=== PATIENT | female | born 1935 | race Caucasian/White ===

== ENCOUNTER 2017-04-23 16:12 | Outpatient (CLI) | payer MEDICARE ==
[2017-04-23 17:38] LABS: BASOPHILS % (AUTO) 0.7 %; EOSINOPHILS # (AUTO) 0.1 10^3/uL (0.0-0.7); EOSINOPHILS % (AUTO) 1.9 %; LYMPHOCYTES # (AUTO) 1.5 10^3/uL (1.5-3.5); LYMPHOCYTES % (AUTO) 24.6 %; MEAN CORPUSCULAR HEMOGLOBIN 29.7 pg (27.0-31.0); MEAN CORPUSCULAR HGB CONC 34.1 g/dL (32.0-36.0); MEAN CORPUSCULAR VOLUME 87.1 fL (81.0-99.0); MEAN PLATELET VOLUME 8.8 fL (7.9-10.8); MONOCYTES # (AUTO) 0.3 10^3/uL (0.0-1.0); MONOCYTES % (AUTO) 5.6 %; NEUTROPHILS % (AUTO) 67.2 %; NUCLEATED RED BLOOD CELLS AUTO 0.1 /100WBC; RED CELL DISTRIBUTION WIDTH 14.3 % (12.0-15.0)
[2017-04-23 18:08] LABS: HEMOGLOBIN A1C 1.72 g/dL
[2017-04-23 18:24] LABS: ALBUMIN/GLOBULIN RATIO 1.3 (1.0-2.2); BILIRUBIN,TOTAL 0.7 mg/dL (0.2-1.0); BUN - BLOOD UREA NITROGEN 22 mg/dL (6-20); CALCIUM 9.3 mg/dL (8.5-10.3); CARBON DIOXIDE - CO2 26 mmol/L (21-32); CHLORIDE 102 mmol/L (101-111); CHOL/HDL RATIO 6.4 (<4.4); CHOLESTEROL 255 mg/dL; GFR - MDRD 53 (>89); GLUCOSE 377 mg/dL (70-100); HDL CHOLESTEROL 40 mg/dL; LDL/HDL RATIO 3.9 (<4.4); POTASSIUM 4.5 mmol/L (3.5-5.0); SODIUM 137 mmol/L (135-145); TRIGLYCERIDES 298 mg/dL; VLDL CHOLESTEROL 60 mg/dL
== END 2017-04-23 16:13 | disposition home or self-care (01) ==
LOC: LAB.F 16:12
PROVIDERS: ATTEND Internal Medicine
DX: I10 Essential (primary) hypertension (principal); E11.9 Type 2 diabetes mellitus without complications; E78.00 Pure hypercholesterolemia, unspecified
CPT/HCPCS: 36415; 80053; 80061; 83036; 84443; 85025

== ENCOUNTER 2017-05-04 15:59 | Emergency (ER) | payer MEDICARE ==
[2017-05-04] MEDS ORDERED: SODIUM CHLORIDE 0.9% 1,000 ML IV ONE (16:22)
--- NOTE | 2017-05-04 16:23 | ED Physician Documentation ---
PD HPI FOCAL NEURO - Stated complaint Stated Complaint: R ARM PX - Chief complaint Chief Complaint: Neuro - History obtained from History obtained from: Patient, Family - History of Present Illness Timing - onset: How many hours ago (1) Timing - duration: Hours (1) Timing - details: Abrupt onset - Additional information Additional information: Patient is an 82-year-old female who has a history of hypertension and diabetes , today at home felt like she lost control of her right arm and it was flailing/ jerking. States that this has never happened to her before. Family relates that she could not swallow and had a facial droop during this time. The symptoms seem to have resolved at this time. She states that she has had " small strokes in the past", but has never been evaluated for them. She states that she did recently start a new blood pressure medication, but does not know what it is. Has felt like her mouth has been dry for the last month as well. States has intermittent swallowing issues for the past month as well. Review of Systems Ten Systems: 10 systems reviewed and negative Constitutional: denies: Fever, Chills Ears: denies: Ear pain Nose: denies: Rhinorrhea / runny nose, Congestion Throat: denies: Sore throat Respiratory: denies: Cough GI: denies: Abdominal Pain, Nausea, Vomiting, Diarrhea Skin: denies: Rash Musculoskeletal: reports: Back pain (chronic R sided sciatica). denies: Neck pain Neurologic: denies: Generalized weakness, Numbness, Confused, Altered mental status, Headache, Head injury, LOC PD PAST MEDICAL HISTORY - Past Medical History Past Medical History: Yes Cardiovascular: Hypertension Endocrine/Autoimmune: Type 2 diabetes - Past Surgical History Past Surgical History: No - Present Medications Home Medications: Ambulatory Orders Medication Instructions Recorded Confirmed Insulin Glargine [Lantus Solostar] 10 units SQ DAILY 05/04/17 05/04/17 Metoprolol Tartrate 25 mg PO DAILY 05/04/17 05/04/17 - Allergies Allergies/Adverse Reactions: Allergies Allergy/AdvReac Type Severity Reaction Status Date / Time Unable to Assess Allergy Verified 05/04/17 16:11 - Social History Does the pt smoke?: No Smoking Status: Never smoker PD ED PE NORMAL - Vitals Vital signs reviewed: Yes - General General: Alert and oriented X 3, No acute distress, Well developed/nourished - HEENT HEENT: Atraumatic, PERRL, EOMI, Ears normal, Moist mucous membranes, Pharynx benign - Neck Neck: Supple, no meningeal sign - Cardiac Cardiac: RRR - Respiratory Respiratory: No respiratory distress, Clear bilaterally - Abdomen Abdomen: Soft, Non tender, Non distended - Back Back: No CVA TTP, No spinal TTP - Derm Derm: Warm and dry - Extremities Extremities: No deformity, No tenderness to palpate, Other (R arm, writhing movements present lying in bed. Pt appears restless, has lip smacking and constantly shifting in bed. ) - Neuro Neuro: Alert and oriented X 3, feather cutting machine feeder 2-12 intact, No motor deficit, No sensory deficit, Normal speech - Psych Psych: Normal mood, Normal affect NIHSS - Time Time: 16:20 - Level of Consciousness Level of consciousness: (0) Alert, Keenly responsive LOC Questions: (0) Answers both Q's correct LOC Commands: (0) Performs both correctly - Gaze Best Gaze: (0) Normal - Visual Visual: (0) No loss - Facial Palsy Facial Palsy: (0) Normal, symmetrical movement - Motor Arms (both separate) Motor Arm (right): (0) No drift Motor Arm (left): (0) No drift - Motor Legs (both separate) Motor Leg (right): (0) No drift Motor Leg (left): (0) No drift - Limb Ataxia Limb Ataxia: (0) Absent - Sensory Sensory: (0) Normal - Best Language Best Language: (0) No aphasia - Dysarthria Dysarthria: (0) Normal - Extinction and Inattention (formally neg Extinction and inattention: (0) No abnormality - Total Score/Results Total Score/Result: 0 Results - Vitals Vitals: Vital Signs - 24 hr 05/04/17 05/04/17 05/04/17 16:02 16:56 18:21 Temperature 36.8 C Heart Rate 67 66 64 Respiratory 18 16 21 Rate Blood Pressure 183/72 H 155/86 H 172/68 H O2 Saturation 97 96 98 Oxygen O2 Source Room air - EKG (time done) 1609 Rate: Rate (enter#) (66) Rhythm: NSR [place]: Normal Intervals: Normal [place] QRS: Normal Ischemia: Q waves (V1-3), T wave inversion (q, aV) - Labs Labs: Laboratory Tests 05/04/17 05/04/17 05/04/17 16:12 16:42 16:42 WBC 6.4 RBC 5.33 Hgb 15.4 Hct 45.8 MCV 85.9 MCH 28.8 MCHC 33.6 RDW 13.8 Plt Count 193 MPV 8.0 Neut # 4.0 Lymph # 1.7 [place] # 0.4 Eos # 0.1 Baso # 0.0 Absolute Nucleated RBC 0.00 Nucleated RBCs 0.0 PT INR APTT Sodium 136 Potassium 4.2 Chloride 102 Carbon Dioxide 24 Anion Gap 10.0 BUN 21 H Creatinine 0.8 Estimated GFR (MDRD) 69 L Glucose 285 H POC Whole Bld Glucose 265 H Calcium 9.2 Phosphorus 3.2 Magnesium 2.0 Total Bilirubin 0.7 AST 22 ALT 27 Alkaline Phosphatase 57 Total Protein 7.0 Albumin 3.9 Globulin 3.1 Albumin/Globulin Ratio 1.3 Lipase 33 Urine Color Urine Clarity Urine pH Ur Specific [place] Urine Protein Urine Glucose (UA) Urine Ketones Urine Occult Blood Urine Nitrite Urine Bilirubin Urine Urobilinogen Ur Leukocyte Esterase Ur Microscopic Review Urine Culture Comments Salicylates < 6.0 Urine Opiates Screen Ur Oxycodone Screen Urine Methadone Screen Ur Propoxyphene Screen Acetaminophen < 10 L Ur Barbiturates Screen Ur Tricyclics Screen Ur Phencyclidine Scrn Ur Amphetamine Screen U Methamphetamines Scrn U Benzodiazepines Scrn Urine Cocaine Screen U Cannabinoids Screen Ethyl Alcohol < 5.0 05/04/17 05/04/17 16:42 17:32 WBC RBC Hgb Hct MCV MCH MCHC RDW Plt Count MPV Neut # Lymph # [place] # Eos # Baso # Absolute Nucleated RBC Nucleated RBCs PT 11.5 INR 1.0 APTT 25.4 Sodium Potassium Chloride Carbon Dioxide Anion Gap BUN Creatinine Estimated GFR (MDRD) Glucose POC Whole Bld Glucose Calcium Phosphorus Magnesium Total Bilirubin AST ALT Alkaline Phosphatase Total Protein Albumin Globulin Albumin/Globulin Ratio Lipase Urine Color YELLOW Urine Clarity CLEAR Urine pH 6.0 Ur Specific [place] 1.020 Urine Protein NEGATIVE Urine Glucose (UA) 500 H Urine Ketones TRACE Urine Occult Blood NEGATIVE Urine Nitrite NEGATIVE Urine Bilirubin NEGATIVE Urine Urobilinogen 0.2 (NORMAL) Ur Leukocyte Esterase NEGATIVE Ur Microscopic Review NOT INDICATED Urine Culture Comments NOT INDICATED Salicylates Urine Opiates Screen NEGATIVE Ur Oxycodone Screen NEGATIVE Urine Methadone Screen NEGATIVE Ur Propoxyphene Screen NEGATIVE Acetaminophen Ur Barbiturates Screen NEGATIVE Ur Tricyclics Screen NEGATIVE Ur Phencyclidine Scrn NEGATIVE Ur Amphetamine Screen NEGATIVE U Methamphetamines Scrn NEGATIVE U Benzodiazepines Scrn NEGATIVE Urine Cocaine Screen NEGATIVE U Cannabinoids Screen NEGATIVE Ethyl Alcohol - Rads (name of study) head Ct Radiology: Prelim report reviewed, EMP read contemporaneously, See rad report ( no acute intracranial abnormality.) PD MEDICAL DECISION MAKING - ED course Complexity details: reviewed results, re-evaluated patient, considered differential, d/w patient, d/w family, d/w senior treasury consultant (1640 - Dr. Turner (neurology [facility]) does not sound like an acute CVA, concern for neurodegenerative disease or chorea disorder. Recommends transfer to [facility] or [facility].) ED course: Patient is an 82-year-old female who presents today after having a sudden onset of loss of control of the right arm, possible hemiballismus? Possible choreiform disorder?Family states that she had a right-sided facial droop and could not speak clearly or swallow during this event as well. Has never had a history of seizures. Currently is neurologically normal although very restless in bed and does have some writhing movement of the right upper extremity. Discussed the case with neurology at [facility] as well as [place], we will transfer her for further evaluation and care. This document was made in part using voice recognition software. While efforts are made to proofread this document, sound alike and grammatical errors may occur. 182 - Dr. Owusu (neurology [facility]) recommends transfer for further eval, asks hospitalist to admit. 183 - Dr. Willingham (hospitalist [facility]) graciously accepts in transfer. Departure - Departure Disposition: 02 Transfer Acute Care Hosp Clinical Impression: Movement disorder Condition: Stable
--- NOTE | 2017-05-04 16:51 | CT Preliminary Report ---
Exam: CT Head W/O IMPRESSION: Noncontrast CT of the head is normal for age. [facility] SITE ID: [id number]
[2017-05-04 16:53] LABS: BASOPHILS % (AUTO) 0.7 %; EOSINOPHILS # (AUTO) 0.1 10^3/uL (0.0-0.7); EOSINOPHILS % (AUTO) 2.3 %; HCT - HEMATOCRIT 45.8 % (37.0-47.0); HGB - HEMOGLOBIN 15.4 g/dL (12.0-16.0); LYMPHOCYTES # (AUTO) 1.7 10^3/uL (1.5-3.5); MEAN CORPUSCULAR HEMOGLOBIN 28.8 pg (27.0-31.0); MEAN CORPUSCULAR HGB CONC 33.6 g/dL (32.0-36.0); MEAN CORPUSCULAR VOLUME 85.9 fL (81.0-99.0); MONOCYTES # (AUTO) 0.4 10^3/uL (0.0-1.0); RED BLOOD COUNT 5.33 10^6/uL (4.20-5.40); RED CELL DISTRIBUTION WIDTH 13.8 % (12.0-15.0); UNCORRECTED WHITE BLOOD COUNT 6.4 x10^3/uL; WHITE BLOOD COUNT 6.4 x10^3/uL (4.8-10.8)
--- NOTE | 2017-05-04 16:53 | CT Report ---
EXAM: CT HEAD EXAM DATE: 05/04/2017 04:40 PM. CLINICAL HISTORY: R side arm loss of control. COMPARISON: None. TECHNIQUE: Multiaxial CT images were obtained from the foramen magnum to the vertex. IV contrast: Non e. Reformats: Coronal. In accordance with CT protocol optimization, one or more of the following dose reduction techniques w ere utilized for this exam: automated exposure control, adjustment of mA and/or KV based on patient s ize, or use of iterative reconstructive technique. FINDINGS: Parenchyma: No intraparenchymal hemorrhage. No evidence of mass, midline shift, or CT findings of acu te infarction. Zhao-white differentiation is distinct. Extraaxial Spaces: Normal for age. No subdural or epidural collections identified. Ventricles: The ventricles and cortical sulci are within expected range for the patient's age. Sinuses: Imaged paranasal sinuses, orbits, and mastoids show no significant abnormality. Bones: No evidence of fracture or calvarial defect. Other: None. IMPRESSION: Noncontrast CT of the head is normal for age. [facility] Referring Provider Line: [phone] SITE ID: [id number]
[2017-05-04 17:07] LABS: ALBUMIN/GLOBULIN RATIO 1.3 (1.0-2.2); BILIRUBIN,TOTAL 0.7 mg/dL (0.2-1.0); BUN - BLOOD UREA NITROGEN 21 mg/dL (6-20); CALCIUM 9.2 mg/dL (8.5-10.3); CARBON DIOXIDE - CO2 24 mmol/L (21-32); CHLORIDE 102 mmol/L (101-111); CREATININE 0.8 mg/dL (0.4-1.0); GFR - MDRD 69 (>89); GLUCOSE 285 mg/dL (70-100); LIPASE 33 U/L (22-51); PHOSPHORUS 3.2 mg/dL (2.5-4.6); POTASSIUM 4.2 mmol/L (3.5-5.0); SALICYLATE < 6.0 mg/dL; SODIUM 136 mmol/L (135-145)
[2017-05-04 17:11] LABS: PT - PROTHROMBIN TIME 11.5 secs (9.9-12.6)
[2017-05-04 17:18] LABS: PARTIAL THROMBOPLASTIN TIME 25.4 secs (24.9-33.3)
[2017-05-04 17:19] LABS: ACETAMINOPHEN < 10 ug/mL (10-30)
[2017-05-04 17:41] LABS: BILIRUBIN,URINE NEGATIVE (NEGATIVE)
[2017-05-04 17:45] LABS: UA CHARGE (STRIP ONLY) YES; UR CULTURE IF IND NOT INDICATED
[2017-05-04 19:26] VITALS: BP 165/73
== END 2017-05-04 19:30 | disposition short-term general hospital (02) ==
LOC: ED 15:59
DX: G25.9 Extrapyramidal and movement disorder, unspecified (principal); R94.31 Abnormal electrocardiogram [ECG] [EKG]; I10 Essential (primary) hypertension; E11.8 Type 2 diabetes mellitus with unspecified complications; Z79.4 Long term (current) use of insulin
CPT/HCPCS: 36415; 70450; 80053; 80306; 80307; 81003; 83690; 83735; 84100; 85025; 85610; 85730; 93005; 99285; G0480; 80320; 80329; 81001; 87086

== ENCOUNTER 2017-05-04 19:32 | Outpatient (CLI) | payer MEDICARE | END 2017-05-04 19:33 | disposition short-term general hospital (02) | LOC: EMS 19:32 | PROVIDERS: ATTEND Surgery | DX: R25.1 Tremor, unspecified (principal); R26.81 Unsteadiness on feet | CPT/HCPCS: A0425; A0428 ==

== ENCOUNTER 2018-11-24 19:48 | Inpatient (IN) | payer MEDICARE ==
[2018-11-24] MEDS ORDERED: ASPIRIN CHEW 81 MG TABLET PO STA (20:11)
[2018-11-24] MEDS ORDERED: SODIUM CHLORIDE 0.9% 1,000 ML IV ONE (20:11)
[2018-11-24] MEDS ORDERED: PROMETHAZINE INJ 12.5 MG in SODIUM CHLORIDE 0.9% 50 ML IV STA (20:12)
[2018-11-24] MEDS ORDERED: LABETALOL 20 MG/4 ML SYRINGE IVP STA (20:14)
[2018-11-24 20:20] LABS: BASOPHILS # (AUTO) 0.1 10^3/uL (0.0-0.1); BASOPHILS % (AUTO) 0.7 %; EOSINOPHILS # (AUTO) 0.1 10^3/uL (0.0-0.7); EOSINOPHILS % (AUTO) 1.5 %; HGB - HEMOGLOBIN 15.5 g/dL (12.0-16.0); LYMPHOCYTES # (AUTO) 1.7 10^3/uL (1.5-3.5); MEAN CORPUSCULAR HEMOGLOBIN 29.4 pg (27.0-31.0); MEAN CORPUSCULAR HGB CONC 34.8 g/dL (32.0-36.0); MEAN CORPUSCULAR VOLUME 84.5 fL (81.0-99.0); MEAN PLATELET VOLUME 7.8 fL (7.9-10.8); MONOCYTES # (AUTO) 0.4 10^3/uL (0.0-1.0); MONOCYTES % (AUTO) 5.7 %; NEUTROPHILS # (AUTO) 4.8 10^3/uL (1.5-6.6); NEUTROPHILS % (AUTO) 68.1 %; PLT - PLATELET COUNT 187 10^3/uL (130-450); RED BLOOD COUNT 5.28 10^6/uL (4.20-5.40); RED CELL DISTRIBUTION WIDTH 14.1 % (12.0-15.0); WHITE BLOOD COUNT 7.1 x10^3/uL (4.8-10.8)
[2018-11-24] MEDS ORDERED: LORazepam 2 MG/ML VIAL IVP STA (20:23)
[2018-11-24] MEDS ORDERED: HALOPERIDOL 5 MG/ML VIAL IVP ONE (20:23)
[2018-11-24 20:27] LABS: INR 1.1 (0.8-1.2); PT - PROTHROMBIN TIME 12.3 secs (9.9-12.6)
[2018-11-24 20:31] LABS: ALBUMIN 4.1 g/dL (3.2-5.5); ALBUMIN/GLOBULIN RATIO 1.4 (1.0-2.2); BILIRUBIN,TOTAL 0.9 mg/dL (0.2-1.0); CALCIUM 9.4 mg/dL (8.5-10.3); CREATININE 0.8 mg/dL (0.4-1.0); TOTAL PROTEIN 7.1 g/dL (6.7-8.2)
[2018-11-24] MEDS ORDERED: IOPAMIDOL-300 100 ML VIAL ONE (20:31)
[2018-11-24 20:34] LABS: PARTIAL THROMBOPLASTIN TIME 25.7 secs (24.9-33.3)
--- NOTE | 2018-11-24 21:12 | ED Physician Documentation ---
PD HPI FOCAL NEURO - Stated complaint Stated Complaint: STROKE SYMPTOMS - Chief complaint Chief Complaint: Neuro - History obtained from History obtained from: Patient, Family - History of Present Illness Timing - onset: How many hours ago (12) Timing - duration: Hours (12) Timing - details: Abrupt onset, Gradual onset Severity of deficit: Mild Weakness: No: Face, Arm, Hand, Leg Numbness: No: Face, Arm, Hand, Leg Associated symptoms: Headache, Nausea / vomiting Contributing factors: positive: Other (Diabetes and hyper pressure) Baseline status: positive: A&OX3, ambulatory, indep - Additional information Additional information: Patient reports 12 hours of left facial tingling and drifting to the left when she walks. Patient now in the emergency department reports some nausea and vomiting as well. Review of Systems Ten Systems: 10 systems reviewed and negative Constitutional: reports: Reviewed and negative Eyes: reports: Reviewed and negative Ears: reports: Reviewed and negative Nose: reports: Reviewed and negative Throat: reports: Reviewed and negative Cardiac: reports: Reviewed and negative Respiratory: reports: Reviewed and negative GI: reports: Reviewed and negative : reports: Reviewed and negative Skin: reports: Reviewed and negative Musculoskeletal: reports: Reviewed and negative Neurologic: reports: Reviewed and negative Psychiatric: reports: Reviewed and negative Endocrine: reports: Reviewed and negative Immunocompromised: reports: Reviewed and negative PD PAST MEDICAL HISTORY - Past Medical History Cardiovascular: Hypertension Endocrine/Autoimmune: Type 2 diabetes - Past Surgical History Past Surgical History: No - Present Medications Home Medications: Ambulatory Orders Medication Instructions Recorded Confirmed Insulin Glargine [Lantus Solostar] 10 units SQ DAILY 05/04/17 05/04/17 Metoprolol Tartrate 25 mg PO DAILY 05/04/17 05/04/17 - Allergies Allergies/Adverse Reactions: Allergies Allergy/AdvReac Type Severity Reaction Status Date / Time No Known Drug Allergies Allergy Verified 11/24/18 19:54 - Social History Does the pt smoke?: No Smoking Status: Never smoker PD ED PE NORMAL - Vitals Vital signs reviewed: Yes - General General: Alert and oriented X 3, No acute distress - HEENT HEENT: PERRL - Neck Neck: Supple, no meningeal sign - Cardiac Cardiac: RRR, No murmur - Respiratory Respiratory: Clear bilaterally - Abdomen Abdomen: Normal bowel sounds, Soft, Non tender, Non distended - Derm Derm: Warm and dry - Extremities Extremities: No deformity - Neuro Neuro: Alert and oriented X 3, rigger third 2-12 intact, No motor deficit, No sensory deficit, Other (No drift in the upper or lower extremities.) - Psych Psych: Normal mood, Normal affect Results - Vitals Vitals: Vital Signs - 24 hr 11/24/18 11/24/18 19:50 22:16 Temperature 36.3 C L Heart Rate 66 60 Respiratory 20 16 Rate Blood Pressure 226/137 H 139/65 H O2 Saturation 99 96 Oxygen O2 Source Nasal cannula - EKG (time done) 2026 Rate: Rate (enter#) (49) Rhythm: Sinus bradycardia [place]: Normal Intervals: Normal [place]. No: Prolonged QT QRS: Normal Ischemia: Normal ST segments. No: T wave inversion - Labs Labs: Laboratory Tests 11/24/18 11/24/18 11/24/18 19:57 20:11 20:11 WBC 7.1 RBC 5.28 Hgb 15.5 Hct 44.6 MCV 84.5 MCH 29.4 MCHC 34.8 RDW 14.1 Plt Count 187 MPV 7.8 L Neut # (Auto) 4.8 Lymph # (Auto) 1.7 [place] # (Auto) 0.4 Eos # (Auto) 0.1 Baso # (Auto) 0.1 Absolute Nucleated RBC 0.01 Nucleated RBC % 0.1 ESR PT 12.3 INR 1.1 APTT 25.7 Sodium Potassium Chloride Carbon Dioxide Anion Gap BUN Creatinine Estimated GFR (MDRD) Glucose POC Whole Bld Glucose 304 H Calcium Total Bilirubin AST ALT Alkaline Phosphatase Troponin I C-React Prot High Sens Total Protein Albumin Globulin Albumin/Globulin Ratio Lipase TSH Free T4 11/24/18 11/24/18 11/24/18 20:11 20:11 20:11 WBC RBC Hgb Hct MCV MCH MCHC RDW Plt Count MPV Neut # (Auto) Lymph # (Auto) [place] # (Auto) Eos # (Auto) Baso # (Auto) Absolute Nucleated RBC Nucleated RBC % ESR PT INR APTT Sodium 136 Potassium 4.0 Chloride 100 L Carbon Dioxide 25 Anion Gap 11.0 BUN 18 Creatinine 0.8 Estimated GFR (MDRD) 69 L Glucose 308 H POC Whole Bld Glucose Calcium 9.4 Total Bilirubin 0.9 AST 21 ALT 22 Alkaline Phosphatase 60 Troponin I < 0.04 C-React Prot High Sens Total Protein 7.1 Albumin 4.1 Globulin 3.0 Albumin/Globulin Ratio 1.4 Lipase 34 TSH 1.57 Free T4 11/24/18 11/24/18 11/24/18 20:11 20:11 20:11 WBC RBC Hgb Hct MCV MCH MCHC RDW Plt Count MPV Neut # (Auto) Lymph # (Auto) [place] # (Auto) Eos # (Auto) Baso # (Auto) Absolute Nucleated RBC Nucleated RBC % ESR 4 PT INR APTT Sodium Potassium Chloride Carbon Dioxide Anion Gap BUN Creatinine Estimated GFR (MDRD) Glucose POC Whole Bld Glucose Calcium Total Bilirubin AST ALT Alkaline Phosphatase Troponin I C-React Prot High Sens 1.5 Total Protein Albumin Globulin Albumin/Globulin Ratio Lipase TSH Free T4 0.84 - Rads (name of study) CT HEAD Radiology: Final report received, Other (Within normal limits) CTA Head Radiology: Final report received, Other (Nondiagnostic due to motion artifact) CTA neck Radiology: Final report received, Other (Chronic atherosclerotic changes without evidence for acute abnormality or flow-limiting stenosis of the large arteries in the neck.Asymmetric intracranial vertebral arteries smaller on the left than the right.) Chest x-ray Radiology: Final report received, Other (WNL) PD MEDICAL DECISION MAKING - ED course Complexity details: reviewed results, re-evaluated patient, considered differential, d/w patient ED course: 83-year-old female with 12 hours of left-sided deficits. Patient is not a candidate for TPA given time course and NIH stroke scale of 0. CT head and CT a angioma head and neck was unremarkable. Patient admitted for TIA observation. Blood pressure controlled with 20 mg IV labetalol with good effect. Departure - Departure Disposition: ED Place in Observation Clinical Impression: TIA (transient ischemic attack), Hypertensive urgency
[2018-11-24] MEDS ORDERED: IOPAMIDOL-300 100 ML VIAL IVP ONE (21:20)
--- NOTE | 2018-11-24 21:57 | CT Report ---
Reason: ataxia Procedure Date: 11/24/2018 Accession Number: [id number] / [id number] Procedure: CT - ANGIO NECK W/WO CPT Code: FULL RESULT: EXAM: CT ANGIOGRAM NECK. EXAM DATE: 11/24/2018 09:25 PM. CLINICAL HISTORY: Ataxia. COMPARISON: No prior neck CT. TECHNIQUE: Routine axial helical imaging was performed from the skull base through the aortic arch. Reconstructions: Routine multiplanar 3D MIP reconstructions. IV Contrast: Isovue-300 80 mL. Evaluation of arterial stenosis is based on a NASCET method of measurement. In accordance with CT protocol optimization, one or more of the following dose reduction techniques were utilized for this exam: automated exposure control, adjustment of mA and/or KV based on patient size, or use of iterative reconstructive technique. FINDINGS: The top of the aortic arch and the origins of the great vessels are patent. Mild stenosis of the proximal left subclavian artery near its origin from prominent atherosclerotic disease with calcified and noncalcified plaque. The left cervical vertebral artery is patent. Probable mild stenosis of the V1 segment. This is likely chronic atherosclerotic change. No acute abnormality or focal flow-limiting stenosis of the congenitally dominant right cervical vertebral artery. The cervical carotid arteries are mildly tortuous. Chronic atherosclerotic disease at both cervical carotid bifurcations is present but there is no evidence of acute abnormality or focal hemodynamically significant stenosis. Multilevel degenerative cervical stenosis from prominent chronic multilevel degenerative spondylosis. Limited intracranial evaluation. The right intradural vertebral artery has an unremarkable appearance. The left intradural vertebral artery appears congenitally small and mildly irregular which may be imaging artifact. This vessel does not appear occluded. Stenosis from atherosclerotic disease is difficult to rule out. Intracranial CTA evaluation is incomplete due to motion artifact. Motion artifact on this study, most severe superiorly. IMPRESSION: 1. Chronic atherosclerotic changes without evidence for acute abnormality or flow-limiting stenosis of the large arteries in the neck. 2. Asymmetric intracranial vertebral arteries, smaller on the left than the right, this is nonspecific but more likely developmental than acquired. 3. Note that these findings do not preclude the possibility of small or acute ischemic infarct for which a brain MRI would be more sensitive. [facility]
--- NOTE | 2018-11-24 22:01 | CT Report ---
Reason: L sided facial droop Procedure Date: 11/24/2018 Accession Number: [id number] / [id number] Procedure: CT - ANGIO HEAD W CPT Code: FULL RESULT: EXAM: CT ANGIOGRAM HEAD. CT SCAN OF THE HEAD WITHOUT AND WITH CONTRAST. EXAM DATE: 11/24/2018 09:01 PM CLINICAL HISTORY: Left facial droop. COMPARISON: No previous CTA. TECHNIQUE: - CT Scan Head: Using a multidetector scanner, axial images were acquired from the foramen magnum to the skull vertex prior to and following contrast administration. - CT Angiogram: Using a multidetector scanner, high-resolution axial images were acquired from the skull base through vertex following rapid infusion of intravenous contrast. Reformats: Multiplanar MIP reformats were reconstructed. Nascet criteria used for stenosis measurement. IV Contrast: 80 mL Isovue-300. In accordance with CT protocol optimization, one or more of the following dose reduction techniques were utilized for this exam: automated exposure control, adjustment of mA and/or KV based on patient size, or use of iterative reconstructive technique. FINDINGS: Brain CT without contrast: Age-related volume loss. No CT evidence for acute intracranial abnormality. No evidence for acute infarct or hemorrhage. Intact calvarium. No acute sinus or mastoid opacification. Brain CT with IV contrast: No abnormal enhancement. No evidence for enhancing or space-occupying mass. As far as can be determined, contrast opacification of the major dural venous sinuses is present. Head CT angiogram: Completely nondiagnostic due to patient motion. IMPRESSION: 1. No CT evidence for acute intracranial abnormality or enhancing mass. 2. CTA of the head was attempted but was nondiagnostic due to patient motion. According to the sleep lab technologist's report, the patient unexpectedly began thrashing on the CT scanner table while the head CTA was being performed. [facility]
--- NOTE | 2018-11-25 00:12 | HISTORY & PHYSICAL EXAMINATION ---
Chief Complaint - Chief Complaint Chief Complaint: leaning to left side, headache History of Present Illness - Admitted From [facility]:: [facility] - History Obtained From Records Reviewed: yes History obtained from: patient's son Exam Limitations: lethargic after sedative med - History of Present Illness HPI Comment/Other: Patient seen on 11/24/18 a7 2300pm Patient is an 83 y/o female who was brought to the ED by her son who is at bedside. At the moment the patient is sound asleep after receiving ativan and h aldol in the ED, thus is unable to provide history. His son reports that for the past twelve hours the patient has been deviating to the left-side when she walks. She also complained of a burning headache yesterday. It resolved but then returned today. She was also experiencing numbness and tingling in her hands. On presentation she complained of dizziness and nausea. She was found to have a SBP of 220 in the ED. As a result of her presentation, she is being admitted for further work up. History - Past Medical History Cardiovascular: reports: Hypertension Endocrine/Autoimmune: reports: Type 2 diabetes Meds/Allgy - Home Medications Home Medications: Ambulatory Orders Medication Instructions Recorded Confirmed Insulin Glargine [Lantus Solostar] 10 units SQ DAILY 05/04/17 05/04/17 Metoprolol Tartrate 25 mg PO DAILY 05/04/17 05/04/17 - Allergies Allergies/Adverse Reactions: Allergies Allergy/AdvReac Type Severity Reaction Status Date / Time No Known Drug Allergies Allergy Verified 11/24/18 19:54 Review of Systems - Constitutional Constitutional: denies: Fatigue, Fever, Chills, Malaise, Poor appetite, Weight gain, Weight loss - Eyes Eyes: denies: Blurred vision, Vision loss, Dipolpia - Ears, Nose & Throat Ears, Nose & Throat: denies: Sore throat, Hoarseness - Cardiovascular Cariovascular: reports: Lightheadedness. denies: Palpitations, Chest pain, Edema, Syncope, Exertional dyspnea, Decr. exercise tolerance - Respiratory Respiratory: denies: Cough, Wheezing, SOB with exertion - Gastrointestinal Gastrointestinal: reports: Nausea, Vomiting. denies: Abdominal pain, Abdominal distention, Constipation, Diarrhea - Genitourinary Genitourinary: denies: Dysuria, Frequency, Urgency, Hematuria - Musculoskeletal Musculoskeletal: denies: Back pain, Muscle aches, Stiffness, Joint pain - Neurological Neurological: reports: Headache, Dizziness, Numbness (in hands), Abnormal gait (left deviation with ambulation) - Psychiatric Psychiatric: denies: Depression, Anxiety - Hematologic/Lymphatic Hematologic/Lymphatic: denies: Anemia, Bruising, Petechiae Exam - Vital Signs Vital Signs: Vital Signs x48h Temp Pulse Resp BP Pulse Ox 11/24/18 22:16 60 16 139/65 H 96 11/24/18 19:50 36.3 C L 66 20 226/137 H 99 - Physical Exam General Appearance: positive: No acute distress, Lethargic. negative: Alert Eyes Bilateral: positive: Normal inspection, PERRL, EOMI, No scleral icterus ENT: positive: ENT inspection nml, Dry mucous membranes Neck: positive: Nml inspection, No JVD, Trachea midline Respiratory: positive: Chest non-tender, No respiratory distress, Breath sounds nml. negative: Wheezes, Rales, Rhonchi Cardiovascular: positive: Regular rate & rhythm, No murmur. negative: Irregularly irregular, Tachycardia, JVD present Abdomen: positive: Non-tender, No organomegaly, Nml bowel sounds, No distention Back: positive: Nml inspection Skin: positive: Color nml, No rash, Warm, Dry. 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
[2018-11-25] MEDS: hydrALAZINE INJ 20 MG/ML VIAL IVP PRN ×2 (00:26→07:57)
[2018-11-25] MEDS: SODIUM CHLORIDE FLUSH 0.9% 10 ML SYRINGE IVP SCH ×4 (00:26→23:38)
[2018-11-25] MEDS ORDERED: INSULIN GLARGINE 300 UNIT/3 ML PEN SUBQ SCH ×2 (01:07→09:00)
[2018-11-25 01:45] LABS: BILIRUBIN,URINE NEGATIVE (NEGATIVE); GLUCOSE, URINE (UA) >=1000 mg/dL (NEGATIVE); KETONES,URINE (UA) 15 mg/dL (NEGATIVE); LEUKOCYTE ESTERASE, URINE NEGATIVE (NEGATIVE); NITRITE,URINE NEGATIVE (NEGATIVE); OCCULT BLOOD,URINE LARGE (NEGATIVE); PH,URINE 6.5 PH (5.0-7.5); PROTEIN,URINE NEGATIVE (NEGATIVE); UROBILINOGEN,URINE 0.2 (NORMAL) E.U./dL (NORMAL)
[2018-11-25] MEDS ORDERED: LABETALOL 20 MG/4 ML SYRINGE IVP PRN (01:45)
[2018-11-25 02:03] LABS: CLARITY,URINE CLEAR (CLEAR)
[2018-11-25 02:04] LABS: BACTERIA,URINE Rare /HPF (None Seen); RBC,URINE TNTC /HPF (0-5); SQUAMOUS EPITHELIAL CELL,UR MOD Squamous (<= Few)
--- NOTE | 2018-11-25 04:17 | Ultrasound Report ---
Reason: TIA, CVA work up Procedure Date: 11/25/2018 Accession Number: [id number] / [id number] Procedure: US - Carotid Doppler Complete CPT Code: FULL RESULT: EXAM: BILATERAL CAROTID AND VERTEBRAL ARTERY DUPLEX DOPPLER ULTRASOUND: EXAM DATE: 11/25/2018 02:43 AM CLINICAL HISTORY: TIA, CVA work up. COMPARISON: None. TECHNIQUE: Grayscale imaging, color Doppler, and duplex spectral Doppler were used to evaluate the carotid and vertebral arteries bilaterally. Static images were obtained. FINDINGS: Mild bilateral plaquing in the carotid bifurcations and proximal internal carotid arteries. Normal antegrade flow is present in bilateral vertebral arteries. VELOCITIES (cm/sec): Right CCA mid: PSV 62.1 cm/sec CCA dist: PSV 62.1 cm/sec ICA prox: PSV 69.8 cm/sec, EDV 17.4 cm/sec ICA mid: PSV 75.3 cm/sec, EDV 14.1 cm/sec ICA dist: PSV 90.5 cm/sec, EDV 28.4 cm/sec ECA: PSV 100.9 cm/sec Vert: PSV 69.8 cm/sec ICA/CCA: 1.5 Left CCA mid: PSV 78.5 cm/sec CCA dist: PSV 64.9 cm/sec ICA prox: PSV 37.1 cm/sec, EDV 10.5 cm/sec ICA mid: PSV 51.5 cm/sec, EDV 10.9 cm/sec ICA dist: PSV 65.9 cm/sec, EDV 18.8 cm/sec ECA: PSV 106.4 cm/sec Vert: PSV 43.2 cm/sec ICA/CCA: 0.8 ICA diameter stenosis: Right: <50% by velocity and <70% by NASCET criteria. Left: <50% by velocity and <70% by NASCET criteria. IMPRESSION: 1. Mild bilateral carotid artery plaquing. 2. In the right carotid artery there are no elevated carotid artery velocities to suggest hemodynamically significant stenosis. 3. In the left carotid artery there are no elevated carotid artery velocities to suggest hemodynamically significant stenosis. 4. Normal antegrade flow is present in bilateral vertebral arteries. General Recommendations: Stenosis =50% ICA - Follow-up ultrasound 6-12 months Stenosis <50% ICA - High Risk Patient with plaque - Follow-up ultrasound 1-2 years Normal Study but High Risk Patient - Follow-up ultrasound 3-5 years Management recommendations and diagnostic criteria are based on current IAC endorsed standards in Carotid Artery Stenosis: Grayscale and Doppler Ultrasound Diagnosis. Validated velocity measurements with angiographic measurements and velocity criteria are extrapolated from diameter data as defined by the Society of Radiologists in Ultrasound Consensus Conference Radiology 2003; 229;340-346. RADIA
[2018-11-25 05:47] LABS: BASOPHILS % (AUTO) 0.3 %; EOSINOPHILS % (AUTO) 0.1 %; HGB - HEMOGLOBIN 14.7 g/dL (12.0-16.0); LYMPHOCYTES # (AUTO) 0.8 10^3/uL (1.5-3.5); LYMPHOCYTES % (AUTO) 7.7 %; MEAN CORPUSCULAR HGB CONC 33.5 g/dL (32.0-36.0); MEAN CORPUSCULAR VOLUME 86.4 fL (81.0-99.0); MEAN PLATELET VOLUME 8.2 fL (7.9-10.8); MONOCYTES # (AUTO) 0.2 10^3/uL (0.0-1.0); MONOCYTES % (AUTO) 2.4 %; NEUTROPHILS # (AUTO) 9.1 10^3/uL (1.5-6.6); NEUTROPHILS % (AUTO) 89.5 %; PLT - PLATELET COUNT 165 10^3/uL (130-450); RED BLOOD COUNT 5.09 10^6/uL (4.20-5.40); RED CELL DISTRIBUTION WIDTH 13.6 % (12.0-15.0); WHITE BLOOD COUNT 10.1 x10^3/uL (4.8-10.8)
[2018-11-25 06:00] LABS: CHOL/HDL RATIO 5.3 (<4.4); CHOLESTEROL 249 mg/dL; HDL CHOLESTEROL 47 mg/dL; LDL CHOLESTEROL,CALCULATED 181 mg/dL; LDL/HDL RATIO 3.9 (<4.4); VLDL CHOLESTEROL 21 mg/dL
[2018-11-25 06:09] LABS: HB2 TOTAL 16.2 g/dL; HEMOGLOBIN A1C 1.43 g/dL; HEMOGLOBIN A1C % 10.2 % (4.6-6.2)
[2018-11-25] MEDS: INSULIN ASPART 300 UNIT/3 ML PEN SUBQ SCH ×2 (07:56→12:37)
[2018-11-25] MEDS: POLYETHYLENE GLYCOL 3350 17 GM PACKET PO SCH (08:56)
[2018-11-25] MEDS ORDERED: ASPIRIN 325 MG TABLET PO SCH (09:00)
[2018-11-25] MEDS ORDERED: ASPIRIN 300 MG SUPP PR SCH (09:25)
[2018-11-25] MEDS ORDERED: LORazepam 2 MG/ML VIAL IVP SCH (09:27)
[2018-11-25] MEDS ORDERED: SODIUM CHLORIDE 0.9% 1,000 ML IV SCH (12:00)
--- NOTE | 2018-11-25 12:58 | MRI Report ---
Reason: TIA/ CVA work up Procedure Date: 11/25/2018 Accession Number: [id number] / [id number] Procedure: MRI - Brain W/O CPT Code: FULL RESULT: EXAM: MRI BRAIN WITHOUT CONTRAST EXAM DATE: 11/25/2018 12:21 PM. CLINICAL HISTORY: TIA/ CVA work up. Left-sided weakness, dysphagia, balance problems COMPARISON: NECK ANGIO 11/24/2018 9:01 PM. TECHNIQUE: Multiplanar, multisequence T1-weighted and fluid-sensitive MR sequences of the brain were performed. Sequences optimized for routine evaluation. Other: None. IV Contrast: None. FINDINGS: There is a 6.3 x 10.9 mm diffusion restriction in the inferolateral medulla (40: 605) compatible with acute infarct. No other infarct demonstrated. No mass-effect, midline shift or hydrocephalus. Major intracranial flow voids are preserved. Ill-defined T2 hyperintensities in the periventricular white matter, compatible with chronic microvascular angiopathy. Orbits, cavernous sinus and Meckel's cave appear normal. Pituitary appear unremarkable. Craniocervical junction and visualized upper cervical cord unremarkable. Marrow signal and extracranial soft tissue unremarkable. IMPRESSION: 1. 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 2. No intracranial hemorrhage, midline shift, or hydrocephalus. 3. Chronic microvascular angiopathy. 4. Mild diffuse cerebral volume loss. RADIA The critical result notification system was initiated by Dr. Mike Ward at 12:43 PM on 11/25/2018. The above critical result findings were discussed with Dr. Hardik Araiza by Dr. Mike Ward at 12:56 PM on 11/25/2018.
[2018-11-25] MEDS ORDERED: INSULIN REGULAR HUMAN 100 UNIT/1 ML 10 ML MDV SUBQ SCH (13:00)
--- NOTE | 2018-11-25 16:07 | PROVIDER PROGRESS NOTE ---
Subjective - Prog Note Date Prog Note Date: 11/25/18 - Subjective Pt reports feeling: Worse Subjective: pt present dysphagia and unsteady balance issue. pt' speech and bilateral strength seems return. MRI report pt had acute left medullary infarct, correla huseyin with Wallenberg syndrome. Current Medications - Current Medications Current Medications: Active Medications Aspirin () 300 mg [place] DAILY VALERIANO Atorvastatin Calcium (Lipitor) 80 mg PO QPM VALERIANO Hydralazine HCl (Apresoline Inj) 10 mg IVP Q4H PRN PRN Reason: PER PHYSICIAN ORDER Last Admin: 11/25/18 07:57 Dose: 10 mg Sodium Chloride (Normal Saline 0.9%) 1,000 mls @ 100 mls/hr IV .Q10H VALERIANO Insulin Glargine (Lantus Solostar) 10 unit SUBQ QPM [facility] Last Admin: 11/25/18 01:54 Dose: 10 unit Insulin Glargine (Lantus Solostar) 5 unit SUBQ QDBREAKFAST [facility] Last Admin: 11/25/18 09:06 Dose: 5 unit Insulin Human Regular (Novolin R) 2 - 10 unit SUBQ Q6HR [facility]; Protocol Last Admin: 11/25/18 15:42 Dose: Not Given Labetalol HCl (Trandate Syringe) 10 mg IVP Q4H PRN PRN Reason: PER PHYSICIAN ORDER Polyethylene Glycol (Miralax) 17 gm PO DAILY [facility] Last Admin: 11/25/18 08:56 Dose: Not Given Sodium Chloride (Normal Saline Flush 0.9%) 10 ml IVP PRN PRN PRN Reason: NEEDED PER PROVIDER ORDERS Sodium Chloride (Normal Saline Flush 0.9%) 10 ml IVP 0100,0900,1700 [facility] Last Admin: 11/25/18 08:05 Dose: 10 ml Insulin Glargine [Lantus Solostar] 20 units SQ DAILY 05/04/17 Metoprolol Tartrate 25 mg PO DAILY 05/04/17 Cholecalciferol (Vitamin D3) [Vitamin D3] 1,000 unit PO DAILY 11/25/18 Multivitamin [Multiple Vitamins] 1 each PO DAILY 11/25/18 Objective - Vital Signs/Intake & Output Reviewed Vital Signs: Yes Vital Signs: Vital Signs x48h Temp Pulse Pulse Resp BP BP BP 11/25/18 16:01 36.4 C L 73 18 139/54 H 11/25/18 12:47 36.5 C 77 77 15 156/74 H 11/25/18 09:08 143/58 H 11/25/18 08:54 159/64 H 11/25/18 08:27 159/64 H 11/25/18 08:20 138/64 H 11/25/18 08:13 140/58 H 11/25/18 08:08 67 137/58 H Pulse Ox 11/25/18 16:01 97 11/25/18 12:47 95 11/25/18 09:08 11/25/18 08:54 11/25/18 08:27 11/25/18 08:20 11/25/18 08:13 11/25/18 08:08 Intake & Output: Intake & Output 11/22/18 11/23/18 11/24/18 11/25/18 23:59 23:59 23:59 23:59 Intake Total 1050.5 240 Output Total 745 Balance 1050.5 -505 - Objective General Appearance: positive: No acute distress, Alert. negative: Lethargic - Lab Results Fish Bones: 11/25/18 05:05 11/24/18 20:11 Other Labs: Lab Results x24hrs 11/25/18 11/25/18 11/25/18 Range/Units 12:37 07:33 05:05 WBC (4.8-10.8) x10^3/uL RBC (4.20-5.40) 10^6/uL Hgb (12.0-16.0) g/dL Hct (37.0-47.0) % MCV (81.0-99.0) fL MCH (27.0-31.0) pg MCHC (32.0-36.0) g/dL RDW (12.0-15.0) % Plt Count (130-450) 10^3/uL MPV (7.9-10.8) fL Neut # (Auto) (1.5-6.6) 10^3/uL Lymph # (Auto) (1.5-3.5) 10^3/uL Petroleum # (Auto) (0.0-1.0) 10^3/uL Eos # (Auto) (0.0-0.7) 10^3/uL Baso # (Auto) (0.0-0.1) 10^3/uL Absolute Nucleated RBC x10^3/uL Nucleated RBC % /100WBC ESR (0-30) mm/Hr PT (9.9-12.6) secs INR (0.8-1.2) APTT (24.9-33.3) secs Sodium (135-145) mmol/L Potassium (3.5-5.0) mmol/L Chloride (101-111) mmol/L Carbon Dioxide (21-32) mmol/L Anion Gap (6-13) BUN (6-20) mg/dL Creatinine (0.4-1.0) mg/dL Estimated GFR (MDRD) (>89) Glucose (70-100) mg/dL POC Whole Bld Glucose 260 H 286 H (70 - 100) mg/dL Glycated Hemoglobin 10.2 H (4.6-6.2) % Estim Average Glucose 246 H (70-100) Calcium (8.5-10.3) mg/dL Total Bilirubin (0.2-1.0) mg/dL AST (10-42) IU/L ALT (10-60) IU/L Alkaline Phosphatase (42-121) IU/L Troponin I (<0.49) ng/mL C-React Prot High Sens mg/L Total Protein (6.7-8.2) g/dL Albumin (3.2-5.5) g/dL Globulin (2.1-4.2) g/dL Albumin/Globulin Ratio (1.0-2.2) Triglycerides ( - 149) mg/dL Cholesterol ( - 199) mg/dL LDL Cholesterol, Calc ( - 129) mg/dL VLDL Cholesterol mg/dL HDL Cholesterol (60 - ) mg/dL LDL/HDL Ratio (<4.4) Cholesterol/HDL Ratio (<4.4) Lipase (22-51) U/L TSH (0.34-5.60) uIU/mL Free T4 (0.58-1.64) ng/dL Urine Color Urine Clarity (CLEAR) Urine pH (5.0-7.5) PH Ur Specific [place] (1.002-1.030) Urine Protein (NEGATIVE) mg/dL Urine Glucose (UA) (NEGATIVE) mg/dL Urine Ketones (NEGATIVE) mg/dL Urine Occult Blood (NEGATIVE) Urine Nitrite (NEGATIVE) Urine Bilirubin (NEGATIVE) Urine Urobilinogen (NORMAL) E.U./dL Ur Leukocyte Esterase (NEGATIVE) Urine RBC (0-5) /HPF Urine WBC (0-5) /HPF Ur Squamous Epith Cells (<= Few) Urine Bacteria (None Seen) /HPF Ur Microscopic Review Urine Culture Comments 11/25/18 11/25/18 11/25/18 Range/Units 05:05 05:05 01:32 WBC 10.1 (4.8-10.8) x10^3/uL RBC 5.09 (4.20-5.40) 10^6/uL Hgb 14.7 (12.0-16.0) g/dL Hct 44.0 (37.0-47.0) % MCV 86.4 (81.0-99.0) fL MCH 29.0 (27.0-31.0) pg MCHC 33.5 (32.0-36.0) g/dL RDW 13.6 (12.0-15.0) % Plt Count 165 (130-450) 10^3/uL MPV 8.2 (7.9-10.8) fL Neut # (Auto) 9.1 H (1.5-6.6) 10^3/uL Lymph # (Auto) 0.8 L (1.5-3.5) 10^3/uL Petroleum # (Auto) 0.2 (0.0-1.0) 10^3/uL Eos # (Auto) 0.0 (0.0-0.7) 10^3/uL Baso # (Auto) 0.0 (0.0-0.1) 10^3/uL Absolute Nucleated RBC 0.01 x10^3/uL Nucleated RBC % 0.1 /100WBC ESR (0-30) mm/Hr PT (9.9-12.6) secs INR (0.8-1.2) APTT (24.9-33.3) secs Sodium (135-145) mmol/L Potassium (3.5-5.0) mmol/L Chloride (101-111) mmol/L Carbon Dioxide (21-32) mmol/L Anion Gap (6-13) BUN (6-20) mg/dL Creatinine (0.4-1.0) mg/dL Estimated GFR (MDRD) (>89) Glucose (70-100) mg/dL POC Whole Bld Glucose 282 H (70 - 100) mg/dL Glycated Hemoglobin (4.6-6.2) % Estim Average Glucose (70-100) Calcium (8.5-10.3) mg/dL Total Bilirubin (0.2-1.0) mg/dL AST (10-42) IU/L ALT (10-60) IU/L Alkaline Phosphatase (42-121) IU/L Troponin I (<0.49) ng/mL C-React Prot High Sens mg/L Total Protein (6.7-8.2) g/dL Albumin (3.2-5.5) g/dL Globulin (2.1-4.2) g/dL Albumin/Globulin Ratio (1.0-2.2) Triglycerides 106 ( - 149) mg/dL Cholesterol 249 H ( - 199) mg/dL LDL Cholesterol, Calc 181 H ( - 129) mg/dL VLDL Cholesterol 21 mg/dL HDL Cholesterol 47 L (60 - ) mg/dL LDL/HDL Ratio 3.9 (<4.4) Cholesterol/HDL Ratio 5.3 (<4.4) Lipase (22-51) U/L TSH (0.34-5.60) uIU/mL Free T4 (0.58-1.64) ng/dL Urine Color Urine Clarity (CLEAR) Urine pH (5.0-7.5) PH Ur Specific [place] (1.002-1.030) Urine Protein (NEGATIVE) mg/dL Urine Glucose (UA) (NEGATIVE) mg/dL Urine Ketones (NEGATIVE) mg/dL Urine Occult Blood (NEGATIVE) Urine Nitrite (NEGATIVE) Urine Bilirubin (NEGATIVE) Urine Urobilinogen (NORMAL) E.U./dL Ur Leukocyte Esterase (NEGATIVE) Urine RBC (0-5) /HPF Urine WBC (0-5) /HPF Ur Squamous Epith Cells (<= Few) Urine Bacteria (None Seen) /HPF Ur Microscopic Review Urine Culture Comments 11/25/18 11/24/18 11/24/18 Range/Units 01:30 20:11 20:11 WBC (4.8-10.8) x10^3/uL RBC (4.20-5.40) 10^6/uL Hgb (12.0-16.0) g/dL Hct (37.0-47.0) % MCV (81.0-99.0) fL MCH (27.0-31.0) pg MCHC (32.0-36.0) g/dL RDW (12.0-15.0) % Plt Count (130-450) 10^3/uL MPV (7.9-10.8) fL Neut # (Auto) (1.5-6.6) 10^3/uL Lymph # (Auto) (1.5-3.5) 10^3/uL Petroleum # (Auto) (0.0-1.0) 10^3/uL Eos # (Auto) (0.0-0.7) 10^3/uL Baso # (Auto) (0.0-0.1) 10^3/uL Absolute Nucleated RBC x10^3/uL Nucleated RBC % /100WBC ESR (0-30) mm/Hr PT (9.9-12.6) secs INR (0.8-1.2) APTT (24.9-33.3) secs Sodium (135-145) mmol/L Potassium (3.5-5.0) mmol/L Chloride (101-111) mmol/L Carbon Dioxide (21-32) mmol/L Anion Gap (6-13) BUN (6-20) mg/dL Creatinine (0.4-1.0) mg/dL Estimated GFR (MDRD) (>89) Glucose (70-100) mg/dL POC Whole Bld Glucose (70 - 100) mg/dL Glycated Hemoglobin (4.6-6.2) % Estim Average Glucose (70-100) Calcium (8.5-10.3) mg/dL Total Bilirubin (0.2-1.0) mg/dL AST (10-42) IU/L ALT (10-60) IU/L Alkaline Phosphatase (42-121) IU/L Troponin I (<0.49) ng/mL C-React Prot High Sens 1.5 mg/L Total Protein (6.7-8.2) g/dL Albumin (3.2-5.5) g/dL Globulin (2.1-4.2) g/dL Albumin/Globulin Ratio (1.0-2.2) Triglycerides ( - 149) mg/dL Cholesterol ( - 199) mg/dL LDL Cholesterol, Calc ( - 129) mg/dL VLDL Cholesterol mg/dL HDL Cholesterol (60 - ) mg/dL LDL/HDL Ratio (<4.4) Cholesterol/HDL Ratio (<4.4) Lipase (22-51) U/L TSH (0.34-5.60) uIU/mL Free T4 0.84 (0.58-1.64) ng/dL Urine Color YELLOW Urine Clarity CLEAR (CLEAR) Urine pH 6.5 (5.0-7.5) PH Ur Specific [place] 1.010 (1.002-1.030) Urine Protein NEGATIVE (NEGATIVE) mg/dL Urine Glucose (UA) >=1000 H (NEGATIVE) mg/dL Urine Ketones 15 H (NEGATIVE) mg/dL Urine Occult Blood LARGE H (NEGATIVE) Urine Nitrite NEGATIVE (NEGATIVE) Urine Bilirubin NEGATIVE (NEGATIVE) Urine Urobilinogen 0.2 (NORMAL) (NORMAL) E.U./dL Ur Leukocyte Esterase NEGATIVE (NEGATIVE) Urine RBC TNTC H (0-5) /HPF Urine WBC 0-3 (0-5) /HPF Ur Squamous Epith Cells MOD Squamous H (<= Few) Urine Bacteria Rare (None Seen) /HPF Ur Microscopic Review INDICATED Urine Culture Comments NOT INDICATED 11/24/18 11/24/18 11/24/18 Range/Units 20:11 20:11 20:11 WBC (4.8-10.8) x10^3/uL RBC (4.20-5.40) 10^6/uL Hgb (12.0-16.0) g/dL Hct (37.0-47.0) % MCV (81.0-99.0) fL MCH (27.0-31.0) pg MCHC (32.0-36.0) g/dL RDW (12.0-15.0) % Plt Count (130-450) 10^3/uL MPV (7.9-10.8) fL Neut # (Auto) (1.5-6.6) 10^3/uL Lymph # (Auto) (1.5-3.5) 10^3/uL Petroleum # (Auto) (0.0-1.0) 10^3/uL Eos # (Auto) (0.0-0.7) 10^3/uL Baso # (Auto) (0.0-0.1) 10^3/uL Absolute Nucleated RBC x10^3/uL Nucleated RBC % /100WBC ESR 4 (0-30) mm/Hr PT (9.9-12.6) secs INR (0.8-1.2) APTT (24.9-33.3) secs Sodium (135-145) mmol/L Potassium (3.5-5.0) mmol/L Chloride (101-111) mmol/L Carbon Dioxide (21-32) mmol/L Anion Gap (6-13) BUN (6-20) mg/dL Creatinine (0.4-1.0) mg/dL Estimated GFR (MDRD) (>89) Glucose (70-100) mg/dL POC Whole Bld Glucose (70 - 100) mg/dL Glycated Hemoglobin (4.6-6.2) % Estim Average Glucose (70-100) Calcium (8.5-10.3) mg/dL Total Bilirubin (0.2-1.0) mg/dL AST (10-42) IU/L ALT (10-60) IU/L Alkaline Phosphatase (42-121) IU/L Troponin I < 0.04 (<0.49) ng/mL C-React Prot High Sens mg/L Total Protein (6.7-8.2) g/dL Albumin (3.2-5.5) g/dL Globulin (2.1-4.2) g/dL Albumin/Globulin Ratio (1.0-2.2) Triglycerides ( - 149) mg/dL Cholesterol ( - 199) mg/dL LDL Cholesterol, Calc ( - 129) mg/dL VLDL Cholesterol mg/dL HDL Cholesterol (60 - ) mg/dL LDL/HDL Ratio (<4.4) Cholesterol/HDL Ratio (<4.4) Lipase (22-51) U/L TSH 1.57 (0.34-5.60) uIU/mL Free T4 (0.58-1.64) ng/dL Urine Color Urine Clarity (CLEAR) Urine pH (5.0-7.5) PH Ur Specific [place] (1.002-1.030) Urine Protein (NEGATIVE) mg/dL Urine Glucose (UA) (NEGATIVE) mg/dL Urine Ketones (NEGATIVE) mg/dL Urine Occult Blood (NEGATIVE) Urine Nitrite (NEGATIVE) Urine Bilirubin (NEGATIVE) Urine Urobilinogen (NORMAL) E.U./dL Ur Leukocyte Esterase (NEGATIVE) Urine RBC (0-5) /HPF Urine WBC (0-5) /HPF Ur Squamous Epith Cells (<= Few) Urine Bacteria (None Seen) /HPF Ur Microscopic Review Urine Culture Comments 11/24/18 11/24/18 11/24/18 Range/Units 20:11 20:11 20:11 WBC 7.1 (4.8-10.8) x10^3/uL RBC 5.28 (4.20-5.40) 10^6/uL Hgb 15.5 (12.0-16.0) g/dL Hct 44.6 (37.0-47.0) % MCV 84.5 (81.0-99.0) fL MCH 29.4 (27.0-31.0) pg MCHC 34.8 (32.0-36.0) g/dL RDW 14.1 (12.0-15.0) % Plt Count 187 (130-450) 10^3/uL MPV 7.8 L (7.9-10.8) fL Neut # (Auto) 4.8 (1.5-6.6) 10^3/uL Lymph # (Auto) 1.7 (1.5-3.5) 10^3/uL Petroleum # (Auto) 0.4 (0.0-1.0) 10^3/uL Eos # (Auto) 0.1 (0.0-0.7) 10^3/uL Baso # (Auto) 0.1 (0.0-0.1) 10^3/uL Absolute Nucleated RBC 0.01 x10^3/uL Nucleated RBC % 0.1 /100WBC ESR (0-30) mm/Hr PT 12.3 (9.9-12.6) secs INR 1.1 (0.8-1.2) APTT 25.7 (24.9-33.3) secs Sodium 136 (135-145) mmol/L Potassium 4.0 (3.5-5.0) mmol/L Chloride 100 L (101-111) mmol/L Carbon Dioxide 25 (21-32) mmol/L Anion Gap 11.0 (6-13) BUN 18 (6-20) mg/dL Creatinine 0.8 (0.4-1.0) mg/dL Estimated GFR (MDRD) 69 L (>89) Glucose 308 H (70-100) mg/dL POC Whole Bld Glucose (70 - 100) mg/dL Glycated Hemoglobin (4.6-6.2) % Estim Average Glucose (70-100) Calcium 9.4 (8.5-10.3) mg/dL Total Bilirubin 0.9 (0.2-1.0) mg/dL AST 21 (10-42) IU/L ALT 22 (10-60) IU/L Alkaline Phosphatase 60 (42-121) IU/L Troponin I (<0.49) ng/mL C-React Prot High Sens mg/L Total Protein 7.1 (6.7-8.2) g/dL Albumin 4.1 (3.2-5.5) g/dL Globulin 3.0 (2.1-4.2) g/dL Albumin/Globulin Ratio 1.4 (1.0-2.2) Triglycerides ( - 149) mg/dL Cholesterol ( - 199) mg/dL LDL Cholesterol, Calc ( - 129) mg/dL VLDL Cholesterol mg/dL HDL Cholesterol (60 - ) mg/dL LDL/HDL Ratio (<4.4) Cholesterol/HDL Ratio (<4.4) Lipase 34 (22-51) U/L TSH (0.34-5.60) uIU/mL Free T4 (0.58-1.64) ng/dL Urine Color Urine Clarity (CLEAR) Urine pH (5.0-7.5) PH Ur Specific [place] (1.002-1.030) Urine Protein (NEGATIVE) mg/dL Urine Glucose (UA) (NEGATIVE) mg/dL Urine Ketones (NEGATIVE) mg/dL Urine Occult Blood (NEGATIVE) Urine Nitrite (NEGATIVE) Urine Bilirubin (NEGATIVE) Urine Urobilinogen (NORMAL) E.U./dL Ur Leukocyte Esterase (NEGATIVE) Urine RBC (0-5) /HPF Urine WBC (0-5) /HPF Ur Squamous Epith Cells (<= Few) Urine Bacteria (None Seen) /HPF Ur Microscopic Review Urine Culture Comments 11/24/18 Range/Units 19:57 WBC (4.8-10.8) x10^3/uL RBC (4.20-5.40) 10^6/uL Hgb (12.0-16.0) g/dL Hct (37.0-47.0) % MCV (81.0-99.0) fL MCH (27.0-31.0) pg MCHC (32.0-36.0) g/dL RDW (12.0-15.0) % Plt Count (130-450) 10^3/uL MPV (7.9-10.8) fL Neut # (Auto) (1.5-6.6) 10^3/uL Lymph # (Auto) (1.5-3.5) 10^3/uL Petroleum # (Auto) (0.0-1.0) 10^3/uL Eos # (Auto) (0.0-0.7) 10^3/uL Baso # (Auto) (0.0-0.1) 10^3/uL Absolute Nucleated RBC x10^3/uL Nucleated RBC % /100WBC ESR (0-30) mm/Hr PT (9.9-12.6) secs INR (0.8-1.2) APTT (24.9-33.3) secs Sodium (135-145) mmol/L Potassium (3.5-5.0) mmol/L Chloride (101-111) mmol/L Carbon Dioxide (21-32) mmol/L Anion Gap (6-13) BUN (6-20) mg/dL Creatinine (0.4-1.0) mg/dL Estimated GFR (MDRD) (>89) Glucose (70-100) mg/dL POC Whole Bld Glucose 304 H (70 - 100) mg/dL Glycated Hemoglobin (4.6-6.2) % Estim Average Glucose (70-100) Calcium (8.5-10.3) mg/dL Total Bilirubin (0.2-1.0) mg/dL AST (10-42) IU/L ALT (10-60) IU/L Alkaline Phosphatase (42-121) IU/L Troponin I (<0.49) ng/mL C-React Prot High Sens mg/L Total Protein (6.7-8.2) g/dL Albumin (3.2-5.5) g/dL Globulin (2.1-4.2) g/dL Albumin/Globulin Ratio (1.0-2.2) Triglycerides ( - 149) mg/dL Cholesterol ( - 199) mg/dL LDL Cholesterol, Calc ( - 129) mg/dL VLDL Cholesterol mg/dL HDL Cholesterol (60 - ) mg/dL LDL/HDL Ratio (<4.4) Cholesterol/HDL Ratio (<4.4) Lipase (22-51) U/L TSH (0.34-5.60) uIU/mL Free T4 (0.58-1.64) ng/dL Urine Color Urine Clarity (CLEAR) Urine pH (5.0-7.5) PH Ur Specific [place] (1.002-1.030) Urine Protein (NEGATIVE) mg/dL Urine Glucose (UA) (NEGATIVE) mg/dL Urine Ketones (NEGATIVE) mg/dL Urine Occult Blood (NEGATIVE) Urine Nitrite (NEGATIVE) Urine Bilirubin (NEGATIVE) Urine Urobilinogen (NORMAL) E.U./dL Ur Leukocyte Esterase (NEGATIVE) Urine RBC (0-5) /HPF Urine WBC (0-5) /HPF Ur Squamous Epith Cells (<= Few) Urine Bacteria (None Seen) /HPF Ur Microscopic Review Urine Culture Comments Assessment/Plan - Problem List (1) Stroke Impression: 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
[2018-11-25] MEDS: ATORVASTATIN 40 MG TABLET PO SCH (20:31)
[2018-11-25] MEDS: SODIUM CHLORIDE 0.9% 1,000 ML IV SCH (23:37)
[2018-11-26 07:09] LABS: BASOPHILS % (AUTO) 0.5 %; EOSINOPHILS # (AUTO) 0.1 10^3/uL (0.0-0.7); EOSINOPHILS % (AUTO) 1.1 %; HGB - HEMOGLOBIN 14.7 g/dL (12.0-16.0); LYMPHOCYTES # (AUTO) 1.2 10^3/uL (1.5-3.5); LYMPHOCYTES % (AUTO) 12.4 %; MEAN CORPUSCULAR HEMOGLOBIN 29.2 pg (27.0-31.0); MEAN CORPUSCULAR HGB CONC 33.7 g/dL (32.0-36.0); MEAN CORPUSCULAR VOLUME 86.5 fL (81.0-99.0); MEAN PLATELET VOLUME 8.2 fL (7.9-10.8); MONOCYTES # (AUTO) 0.7 10^3/uL (0.0-1.0); MONOCYTES % (AUTO) 7.3 %; NEUTROPHILS # (AUTO) 7.5 10^3/uL (1.5-6.6); NEUTROPHILS % (AUTO) 78.7 %; PLT - PLATELET COUNT 173 10^3/uL (130-450); RED BLOOD COUNT 5.03 10^6/uL (4.20-5.40); RED CELL DISTRIBUTION WIDTH 14.6 % (12.0-15.0); WHITE BLOOD COUNT 9.5 x10^3/uL (4.8-10.8)
[2018-11-26 07:20] LABS: CALCIUM 8.5 mg/dL (8.5-10.3); CREATININE 0.8 mg/dL (0.4-1.0)
[2018-11-26] MEDS: hydrALAZINE INJ 20 MG/ML VIAL IVP PRN (07:50)
[2018-11-26] MEDS: SODIUM CHLORIDE FLUSH 0.9% 10 ML SYRINGE IVP SCH ×2 (09:37→16:57)
[2018-11-26] MEDS: SODIUM CHLORIDE 0.9% 1,000 ML IV SCH ×2 (09:43→20:35)
[2018-11-26] MEDS: POLYETHYLENE GLYCOL 3350 17 GM PACKET PO SCH (09:48)
[2018-11-26] MEDS: ASPIRIN 300 MG SUPP PR SCH (10:09)
[2018-11-26] MEDS ORDERED: ACETAMINOPHEN 650 MG SUPP PR PRN (11:29)
[2018-11-26] MEDS ORDERED: LABETALOL 20 MG/4 ML SYRINGE IVP PRN (13:27)
--- NOTE | 2018-11-26 16:45 | PROVIDER PROGRESS NOTE ---
Subjective - Prog Note Date Prog Note Date: 11/26/18 - Subjective Pt reports feeling: No change Subjective: pt still present dysphagia, unsteady balance. but pt bilateral strength and sensation seem recovered and intact. Current Medications - Current Medications Current Medications: Active Medications Acetaminophen (Tylenol) 650 mg [place] Q6HR PRN PRN Reason: Pain or Fever > 38C (100.4F) Aspirin () 300 mg [place] DAILY [facility] Last Admin: 11/26/18 10:09 Dose: 300 mg Atorvastatin Calcium (Lipitor) 80 mg PO QPM [facility] Last Admin: 11/25/18 20:31 Dose: Not Given Hydralazine HCl (Apresoline Inj) 10 mg IVP Q4H PRN PRN Reason: PER PHYSICIAN ORDER Sodium Chloride (Normal Saline 0.9%) 1,000 mls @ 100 mls/hr IV .Q10H [facility] Last Admin: 11/26/18 09:43 Dose: 100 mls/hr Labetalol HCl (Trandate Syringe) 10 mg IVP Q4H PRN PRN Reason: PER PHYSICIAN ORDER Polyethylene Glycol (Miralax) 17 gm PO DAILY [facility] Last Admin: 11/26/18 09:48 Dose: Not Given Sodium Chloride (Normal Saline Flush 0.9%) 10 ml IVP PRN PRN PRN Reason: NEEDED PER PROVIDER ORDERS Sodium Chloride (Normal Saline Flush 0.9%) 10 ml IVP 0100,0900,1700 [facility] Last Admin: 11/26/18 09:37 Dose: 10 ml Insulin Glargine [Lantus Solostar] 20 units SQ DAILY 05/04/17 Metoprolol Tartrate 25 mg PO DAILY 05/04/17 Cholecalciferol (Vitamin D3) [Vitamin D3] 1,000 unit PO DAILY 11/25/18 Multivitamin [Multiple Vitamins] 1 each PO DAILY 11/25/18 Objective - Vital Signs/Intake & Output Reviewed Vital Signs: Yes Vital Signs: Vital Signs x48h Temp Pulse Pulse Resp BP BP Pulse Ox 11/26/18 16:07 36.5 C 74 20 165/71 H 99 11/26/18 12:30 174/66 H 11/26/18 11:55 78 168/74 H 11/26/18 11:51 36.7 C 72 72 H 182/71 H 99 11/26/18 10:23 154/69 H 11/26/18 10:15 160/70 H 11/26/18 10:01 158/72 H 11/26/18 10:00 36.5 C 73 14 151/68 H 98 11/26/18 09:58 151/68 H 11/26/18 09:49 162/63 H 11/26/18 09:07 173/70 H 11/26/18 08:45 185/72 H Intake & Output: Intake & Output 11/23/18 11/24/18 11/25/18 11/26/18 23:59 23:59 23:59 23:59 Intake Total 1050.5 8261.716 0012 Output Total 1445 825 Balance 1050.5 -205.000 175 - Objective General Appearance: positive: No acute distress, Alert. negative: Lethargic Eyes Bilateral: positive: Normal inspection, PERRL, No lid inflammation, Conjunctivae nml ENT: positive: ENT inspection nml, Pharynx nml, No signs of dehydration. negative: Purulent nasal drainage, Pharyngeal erythema, Oral lesions Neck: positive: Nml inspection, Thyroid nml, No JVD, Trachea midline. negative: Thyromegaly, Lymphadenopathy (R), Lymphadenopathy (L), Stiff neck, Swelling/bruising, Tracheal deviation Respiratory: positive: Chest non-tender, No respiratory distress, Breath sounds nml. negative: Wheezes, Rales, Rhonchi Cardiovascular: positive: Regular rate & rhythm, No murmur, No gallop. negative: Irregularly irregular, Extrasystoles, Tachycardia, Bradycardia, JVD present, Systolic murmur, Diastolic murmur Peripheral Pulses: 2+ Radial (R), 2+ Radial (L), 2+ Dorsalis pedis (R), 2+ Dorsalis pedis (L) Abdomen: positive: Non-tender, No organomegaly, Nml bowel sounds, No distention. negative: Tenderness, Guarding, Rebound Back: positive: Nml inspection. negative: CVA tenderness (R), CVA tenderness (L) Skin: positive: Color nml, No rash, Warm, Dry. negative: Cyanosis, Diaphoresis, Pallor Extremities: positive: Non-tender, Nml appearance. negative: Full ROM Neurologic/Psychiatric: positive: Oriented x3, Mood/affect nml, Weakness, Sensory loss. negative: Facial droop, Slurred/abnml speech, Depressed mood/affect - Lab Results Fish Bones: 11/26/18 06:53 11/26/18 06:53 Other Labs: Lab Results x24hrs 11/26/18 11/26/18 11/26/18 Range/Units 11:41 06:53 06:53 WBC 9.5 (4.8-10.8) x10^3/uL RBC 5.03 (4.20-5.40) 10^6/uL Hgb 14.7 (12.0-16.0) g/dL Hct 43.5 (37.0-47.0) % MCV 86.5 (81.0-99.0) fL MCH 29.2 (27.0-31.0) pg MCHC 33.7 (32.0-36.0) g/dL RDW 14.6 (12.0-15.0) % Plt Count 173 (130-450) 10^3/uL MPV 8.2 (7.9-10.8) fL Neut # (Auto) 7.5 H (1.5-6.6) 10^3/uL Lymph # (Auto) 1.2 L (1.5-3.5) 10^3/uL [place] # (Auto) 0.7 (0.0-1.0) 10^3/uL Eos # (Auto) 0.1 (0.0-0.7) 10^3/uL Baso # (Auto) 0.0 (0.0-0.1) 10^3/uL Absolute Nucleated RBC 0.01 x10^3/uL Nucleated RBC % 0.1 /100WBC Sodium 138 (135-145) mmol/L Potassium 3.6 (3.5-5.0) mmol/L Chloride 102 (101-111) mmol/L Carbon Dioxide 26 (21-32) mmol/L Anion Gap 10.0 (6-13) BUN 14 (6-20) mg/dL Creatinine 0.8 (0.4-1.0) mg/dL Estimated GFR (MDRD) 69 L (>89) Glucose 186 H (70-100) mg/dL POC Whole Bld Glucose 233 H (70 - 100) mg/dL Calcium 8.5 (8.5-10.3) mg/dL 11/26/18 11/25/18 11/25/18 Range/Units 05:35 20:39 16:33 WBC (4.8-10.8) x10^3/uL RBC (4.20-5.40) 10^6/uL Hgb (12.0-16.0) g/dL Hct (37.0-47.0) % MCV (81.0-99.0) fL MCH (27.0-31.0) pg MCHC (32.0-36.0) g/dL RDW (12.0-15.0) % Plt Count (130-450) 10^3/uL MPV (7.9-10.8) fL Neut # (Auto) (1.5-6.6) 10^3/uL Lymph # (Auto) (1.5-3.5) 10^3/uL [place] # (Auto) (0.0-1.0) 10^3/uL Eos # (Auto) (0.0-0.7) 10^3/uL Baso # (Auto) (0.0-0.1) 10^3/uL Absolute Nucleated RBC x10^3/uL Nucleated RBC % /100WBC Sodium (135-145) mmol/L Potassium (3.5-5.0) mmol/L Chloride (101-111) mmol/L Carbon Dioxide (21-32) mmol/L Anion Gap (6-13) BUN (6-20) mg/dL Creatinine (0.4-1.0) mg/dL Estimated GFR (MDRD) (>89) Glucose (70-100) mg/dL POC Whole Bld Glucose 172 H 212 H 201 H (70 - 100) mg/dL Calcium (8.5-10.3) mg/dL ABX Reporting Has patient been on IV antibiotics over the past 48 hours?: No Sepsis Event Note (H) - Evaluation Current Stage of Sepsis: Ruled out Assessment/Plan - Problem List (1) Stroke Impression: 11/26 pt continue to have severe dysphagia, fail swallow test. 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 continue NPO, will switch to D5 1/2 NS IVF, continue ACHS for glucose test will consider surgeon consult for GTube if continue dysphagia and failed the swallow test, after discuss with pt and her family. (3) Hypertensive Conclusion/Plan: hold BP meds, Hydralazine and Labetelol ordered prn for SBP> 180 will reconcile home BP (4) Diabetes mellitus, type II Conclusion/Plan: Pt has A1C 10.2, uncontrolled NPO now with IVF, no insulin on NPO to pt SSI, Accucheck Will continue home lantus 10 units subq daily after pt start diet
[2018-11-26] MEDS: ATORVASTATIN 40 MG TABLET PO SCH (20:41)
[2018-11-27] MEDS: SODIUM CHLORIDE FLUSH 0.9% 10 ML SYRINGE IVP SCH ×3 (01:47→19:22)
[2018-11-27 06:08] LABS: BASOPHILS % (AUTO) 0.6 %; EOSINOPHILS # (AUTO) 0.2 10^3/uL (0.0-0.7); HGB - HEMOGLOBIN 13.8 g/dL (12.0-16.0); LYMPHOCYTES # (AUTO) 1.4 10^3/uL (1.5-3.5); LYMPHOCYTES % (AUTO) 16.7 %; MEAN CORPUSCULAR HEMOGLOBIN 29.4 pg (27.0-31.0); MEAN CORPUSCULAR HGB CONC 34.1 g/dL (32.0-36.0); MEAN CORPUSCULAR VOLUME 86.1 fL (81.0-99.0); MONOCYTES # (AUTO) 0.6 10^3/uL (0.0-1.0); MONOCYTES % (AUTO) 7.6 %; NEUTROPHILS # (AUTO) 6.2 10^3/uL (1.5-6.6); NEUTROPHILS % (AUTO) 73.1 %; PLT - PLATELET COUNT 161 10^3/uL (130-450); RED BLOOD COUNT 4.69 10^6/uL (4.20-5.40); RED CELL DISTRIBUTION WIDTH 14.5 % (12.0-15.0); WHITE BLOOD COUNT 8.5 x10^3/uL (4.8-10.8)
[2018-11-27 06:29] LABS: CALCIUM 8.4 mg/dL (8.5-10.3); CREATININE 0.7 mg/dL (0.4-1.0)
[2018-11-27] MEDS: SODIUM CHLORIDE 0.9% 1,000 ML IV SCH ×3 (06:50→19:58)
[2018-11-27] MEDS: ASPIRIN 300 MG SUPP PR SCH (08:22)
[2018-11-27] MEDS: POLYETHYLENE GLYCOL 3350 17 GM PACKET PO SCH (08:25)
[2018-11-27] MEDS ORDERED: DEXTROSE 5%-0.45% NACL 1,000 ML IV SCH (09:00)
[2018-11-27] MEDS: SODIUM CHLORIDE FLUSH 0.9% 10 ML SYRINGE IVP PRN ×2 (12:01→21:25)
[2018-11-27] MEDS: OXYMETAZOLINE NASAL SPRAY NAS PRN ×2 (15:09→22:39)
--- NOTE | 2018-11-27 16:42 | PROVIDER PROGRESS NOTE ---
Subjective - Prog Note Date Prog Note Date: 11/27/18 - Subjective Pt reports feeling: No change Subjective: pt still could not swallow at all, has no recovery this injury from stroke. ST evaluate pt again today. pt still failed swallowing test. Pt's son will come to hospital tomorrow. Pt and her son will determine the next step, such as feeding tube. Current Medications - Current Medications Current Medications: Active Medications Acetaminophen (Tylenol) 650 mg [place] Q6HR PRN PRN Reason: Pain or Fever > 38C (100.4F) Aspirin () 300 mg [place] DAILY [facility] Last Admin: 11/27/18 08:22 Dose: 300 mg Atorvastatin Calcium (Lipitor) 80 mg PO QPM [facility] Last Admin: 11/26/18 20:41 Dose: Not Given Hydralazine HCl (Apresoline Inj) 10 mg IVP Q4H PRN PRN Reason: PER PHYSICIAN ORDER Dextrose/Sodium Chloride (D5.45ns) 1,000 mls @ 100 mls/hr IV .Q10H [facility] Last Admin: 11/27/18 09:11 Dose: 100 mls/hr Labetalol HCl (Trandate Syringe) 10 mg IVP Q4H PRN PRN Reason: PER PHYSICIAN ORDER Oxymetazoline HCl (Afrin) 2 sprays FABRICIO BID PRN PRN Reason: Nasal Congestion Last Admin: 11/27/18 15:09 Dose: 1 spray Polyethylene Glycol (Miralax) 17 gm PO DAILY [facility] [place] Last Admin: 11/27/18 08:25 Dose: Not Given Sodium Chloride (Normal Saline Flush 0.9%) 10 ml IVP PRN PRN PRN Reason: NEEDED PER PROVIDER ORDERS Last Admin: 11/27/18 12:01 Dose: 10 ml Sodium Chloride (Normal Saline Flush 0.9%) 10 ml IVP 0100,0900,1700 [facility] [place] Last Admin: 11/27/18 08:29 Dose: Not Given Insulin Glargine [Lantus Solostar] 20 units SQ DAILY 05/04/17 Metoprolol Tartrate 25 mg PO DAILY 05/04/17 Cholecalciferol (Vitamin D3) [Vitamin D3] 1,000 unit PO DAILY 11/25/18 Multivitamin [Multiple Vitamins] 1 each PO DAILY 11/25/18 Objective - Vital Signs/Intake & Output Reviewed Vital Signs: Yes Vital Signs: Vital Signs x48h Temp Pulse Pulse Resp BP BP Pulse Ox 11/27/18 15:34 36.8 C 68 18 180/74 H 96 11/27/18 14:38 78 168/74 H 11/27/18 12:41 36.9 C 68 16 162/72 H 93 11/27/18 12:00 18 95 Intake & Output: Intake & Output 11/24/18 11/25/18 11/26/18 11/27/18 23:59 23:59 23:59 23:59 Intake Total 1050.5 7701.637 9899 1235 Output Total 1445 1500 450 Balance 1050.5 -205.000 500 785 - Objective General Appearance: positive: No acute distress, Alert. negative: Lethargic Eyes Bilateral: positive: Normal inspection, PERRL, No lid inflammation, Conjunctivae nml ENT: positive: No signs of dehydration. negative: Purulent nasal drainage, Ph aryngeal erythema, Oral lesions Neck: positive: Nml inspection, Thyroid nml, No JVD, Trachea midline. negative: Thyromegaly, Lymphadenopathy (R), Lymphadenopathy (L), Stiff neck, Swelling/bruising, Tracheal deviation Respiratory: positive: Chest non-tender, No respiratory distress, Breath sounds nml. negative: Wheezes, Rales, Rhonchi Cardiovascular: positive: Regular rate & rhythm, No murmur, No gallop. negative: Irregularly irregular, Extrasystoles, Tachycardia, Bradycardia, JVD present, Systolic murmur, Diastolic murmur Peripheral Pulses: 2+ Radial (R), 2+ Radial (L), 2+ Dorsalis pedis (R), 2+ Dorsalis pedis (L) Abdomen: positive: Non-tender, No organomegaly, Nml bowel sounds, No distention. negative: Tenderness, Guarding, Rebound Back: positive: Nml inspection. negative: CVA tenderness (R), CVA tenderness (L) Skin: positive: Color nml, No rash, Warm, Dry. negative: Cyanosis, Diaphoresis, Pallor Extremities: positive: Non-tender, Nml appearance. negative: Full ROM, Calf tenderness, Joint swelling, Eleazar's sign/cords Neurologic/Psychiatric: positive: Oriented x3, Mood/affect nml, Weakness, Sensory loss. negative: Facial droop, Slurred/abnml speech, Depressed mood/affect - Lab Results Fish Bones: 11/27/18 05:50 11/27/18 05:50 Other Labs: Lab Results x24hrs 11/27/18 11/27/18 11/27/18 Range/Units 05:57 05:50 05:50 WBC 8.5 (4.8-10.8) x10^3/uL RBC 4.69 (4.20-5.40) 10^6/uL Hgb 13.8 (12.0-16.0) g/dL Hct 40.4 (37.0-47.0) % MCV 86.1 (81.0-99.0) fL MCH 29.4 (27.0-31.0) pg MCHC 34.1 (32.0-36.0) g/dL RDW 14.5 (12.0-15.0) % Plt Count 161 (130-450) 10^3/uL MPV 8.0 (7.9-10.8) fL Neut # (Auto) 6.2 (1.5-6.6) 10^3/uL Lymph # (Auto) 1.4 L (1.5-3.5) 10^3/uL [place] # (Auto) 0.6 (0.0-1.0) 10^3/uL Eos # (Auto) 0.2 (0.0-0.7) 10^3/uL Baso # (Auto) 0.0 (0.0-0.1) 10^3/uL Absolute Nucleated RBC 0.00 x10^3/uL Nucleated RBC % 0.0 /100WBC Sodium 141 (135-145) mmol/L Potassium 3.6 (3.5-5.0) mmol/L Chloride 109 (101-111) mmol/L Carbon Dioxide 22 (21-32) mmol/L Anion Gap 10.0 (6-13) BUN 12 (6-20) mg/dL Creatinine 0.7 (0.4-1.0) mg/dL Estimated GFR (MDRD) 80 L (>89) Glucose 178 H (70-100) mg/dL POC Whole Bld Glucose 177 H (70 - 100) mg/dL Calcium 8.4 L (8.5-10.3) mg/dL 11/26/18 11/26/18 Range/Units 23:29 17:53 WBC (4.8-10.8) x10^3/uL RBC (4.20-5.40) 10^6/uL Hgb (12.0-16.0) g/dL Hct (37.0-47.0) % MCV (81.0-99.0) fL MCH (27.0-31.0) pg MCHC (32.0-36.0) g/dL RDW (12.0-15.0) % Plt Count (130-450) 10^3/uL MPV (7.9-10.8) fL Neut # (Auto) (1.5-6.6) 10^3/uL Lymph # (Auto) (1.5-3.5) 10^3/uL [place] # (Auto) (0.0-1.0) 10^3/uL Eos # (Auto) (0.0-0.7) 10^3/uL Baso # (Auto) (0.0-0.1) 10^3/uL Absolute Nucleated RBC x10^3/uL Nucleated RBC % /100WBC Sodium (135-145) mmol/L Potassium (3.5-5.0) mmol/L Chloride (101-111) mmol/L Carbon Dioxide (21-32) mmol/L Anion Gap (6-13) BUN (6-20) mg/dL Creatinine (0.4-1.0) mg/dL Estimated GFR (MDRD) (>89) Glucose (70-100) mg/dL POC Whole Bld Glucose 164 H 201 H (70 - 100) mg/dL Calcium (8.5-10.3) mg/dL ABX Reporting Has patient been on IV antibiotics over the past 48 hours?: No Sepsis Event Note (H) - Evaluation Current Stage of Sepsis: Ruled out Assessment/Plan - Problem List (1) Stroke Impression: 11/27 ST evaluate pt today, pt still fail swallowing test. pt's son will come to hospital and discuss the next for care plan, such as tube feeding switch to D5 1/2 NS, continue ACHS to check glucose level continue nurse care continue PT/OT continue Aspirin supp, 11/26 pt continue to have severe dysphagia, fail swallow test. 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 continue NPO, will switch to D5 1/2 NS IVF, continue ACHS for glucose test will consider surgeon consult for GTube if continue dysphagia and failed the swallow test, after discuss with pt and her family. (3) Hypertensive Conclusion/Plan: hold BP meds, Hydralazine and Labetelol ordered prn for SBP> 180 will reconcile home BP (4) Diabetes mellitus, type II Conclusion/Plan: Pt has A1C 10.2, uncontrolled NPO now with IVF, no insulin on NPO to pt SSI, Accucheck Will continue home lantus 10 units subq daily after pt start diet
[2018-11-27] MEDS: ATORVASTATIN 40 MG TABLET PO SCH (19:59)
[2018-11-28] MEDS: SODIUM CHLORIDE FLUSH 0.9% 10 ML SYRINGE IVP SCH ×3 (00:30→15:49)
[2018-11-28 07:01] LABS: BASOPHILS % (AUTO) 0.6 %; EOSINOPHILS # (AUTO) 0.2 10^3/uL (0.0-0.7); EOSINOPHILS % (AUTO) 2.7 %; HGB - HEMOGLOBIN 13.8 g/dL (12.0-16.0); LYMPHOCYTES # (AUTO) 1.5 10^3/uL (1.5-3.5); LYMPHOCYTES % (AUTO) 19.9 %; MEAN CORPUSCULAR HEMOGLOBIN 29.2 pg (27.0-31.0); MEAN CORPUSCULAR HGB CONC 34.2 g/dL (32.0-36.0); MEAN CORPUSCULAR VOLUME 85.4 fL (81.0-99.0); MEAN PLATELET VOLUME 8.2 fL (7.9-10.8); MONOCYTES # (AUTO) 0.6 10^3/uL (0.0-1.0); MONOCYTES % (AUTO) 8.5 %; NEUTROPHILS # (AUTO) 5.2 10^3/uL (1.5-6.6); NEUTROPHILS % (AUTO) 68.3 %; PLT - PLATELET COUNT 160 10^3/uL (130-450); RED BLOOD COUNT 4.71 10^6/uL (4.20-5.40); RED CELL DISTRIBUTION WIDTH 14.1 % (12.0-15.0); WHITE BLOOD COUNT 7.6 x10^3/uL (4.8-10.8)
[2018-11-28 07:08] LABS: CALCIUM 8.7 mg/dL (8.5-10.3); CREATININE 0.7 mg/dL (0.4-1.0)
[2018-11-28] MEDS: SODIUM CHLORIDE 0.9% 1,000 ML IV SCH (07:20)
[2018-11-28] MEDS: POLYETHYLENE GLYCOL 3350 17 GM PACKET PO SCH (08:14)
[2018-11-28] MEDS ORDERED: amLODIPine 5 MG TABLET PO SCH (09:00)
[2018-11-28] MEDS: ASPIRIN 300 MG SUPP PR SCH (09:19)
[2018-11-28] MEDS ORDERED: LORazepam 2 MG/ML VIAL IVP PRN (13:53)
[2018-11-28] MEDS: MULTIVITAMIN 10 ML, THIAMINE INJ 100 MG, FOLIC ACID INJ 1 MG in SODIUM CHLORIDE 0.9% 1,... IV SCH (15:47)
[2018-11-28] MEDS: hydrALAZINE INJ 20 MG/ML VIAL IVP PRN (22:21)
[2018-11-29] MEDS: SODIUM CHLORIDE FLUSH 0.9% 10 ML SYRINGE IVP SCH ×3 (03:23→16:08)
[2018-11-29] MEDS: NS W/20 MEQ KCL 1,000 ML IV SCH (06:35)
[2018-11-29 06:37] LABS: BASOPHILS % (AUTO) 0.5 %; EOSINOPHILS # (AUTO) 0.2 10^3/uL (0.0-0.7); EOSINOPHILS % (AUTO) 2.6 %; HGB - HEMOGLOBIN 14.8 g/dL (12.0-16.0); LYMPHOCYTES # (AUTO) 1.6 10^3/uL (1.5-3.5); LYMPHOCYTES % (AUTO) 18.4 %; MEAN CORPUSCULAR HEMOGLOBIN 28.9 pg (27.0-31.0); MEAN CORPUSCULAR HGB CONC 33.4 g/dL (32.0-36.0); MEAN CORPUSCULAR VOLUME 86.6 fL (81.0-99.0); MEAN PLATELET VOLUME 8.2 fL (7.9-10.8); MONOCYTES # (AUTO) 0.7 10^3/uL (0.0-1.0); MONOCYTES % (AUTO) 7.7 %; NEUTROPHILS # (AUTO) 6.1 10^3/uL (1.5-6.6); NEUTROPHILS % (AUTO) 70.8 %; PLT - PLATELET COUNT 176 10^3/uL (130-450); RED CELL DISTRIBUTION WIDTH 14.1 % (12.0-15.0); WHITE BLOOD COUNT 8.7 x10^3/uL (4.8-10.8)
[2018-11-29] MEDS: SODIUM CHLORIDE FLUSH 0.9% 10 ML SYRINGE IVP PRN (06:42)
[2018-11-29 06:44] LABS: CALCIUM 8.6 mg/dL (8.5-10.3); CREATININE 0.6 mg/dL (0.4-1.0)
--- NOTE | 2018-11-29 07:16 | PROVIDER PROGRESS NOTE ---
Subjective - Prog Note Date Prog Note Date: 11/28/18 Prog Note Time: 09:00 - Subjective Pt reports feeling: No change Subjective: Ju states, "If you don't let me have food, I am leaving"! She denies any new symptoms such as chest pain, nausea, vomiting, dizziness, diarrhea or a new cough. Current Medications - Current Medications Current Medications: Active Medications Acetaminophen (Tylenol) 650 mg [place] Q6HR PRN PRN Reason: Pain or Fever > 38C (100.4F) Aspirin () 300 mg [place] DAILY [facility] Last Admin: 11/28/18 09:19 Dose: 300 mg Hydralazine HCl (Apresoline Inj) 10 mg IVP Q4H PRN PRN Reason: PER PHYSICIAN ORDER Last Admin: 11/28/18 22:21 Dose: 10 mg Multivitamins 10 ml/ Thiamine HCl 100 mg/ Folic Acid 1 mg/Sodium Chloride 1,011.2 mls @ 100 mls/hr IV Q24H [facility] Last Infusion: 11/29/18 03:23 Dose: Infused Potassium Chloride/Sodium Chloride (Normal Saline 0.9% W/20 Meq Kcl) 1,000 mls @ 83.333 mls/hr IV .Q12H [facility] Last Admin: 11/29/18 06:35 Dose: 83.333 mls/hr Labetalol HCl (Trandate Syringe) 10 mg IVP Q4H PRN PRN Reason: PER PHYSICIAN ORDER Lorazepam (Ativan Inj (Vial)) 0.5 mg IVP Q2H PRN PRN Reason: Anxiety Oxymetazoline HCl (Afrin) 2 sprays FABRICIO BID PRN PRN Reason: Nasal Congestion Last Admin: 11/27/18 22:39 Dose: 1 spray Polyethylene Glycol (Miralax) 17 gm PO DAILY [facility] Last Admin: 11/28/18 08:14 Dose: Not Given Insulin Glargine [Lantus Solostar] 20 units SQ DAILY 05/04/17 Metoprolol Tartrate 25 mg PO DAILY 05/04/17 Cholecalciferol (Vitamin D3) [Vitamin D3] 1,000 unit PO DAILY 11/25/18 Multivitamin [Multiple Vitamins] 1 each PO DAILY 11/25/18 Objective - Vital Signs/Intake & Output Reviewed Vital Signs: Yes Vital Signs: Vital Signs x48h Temp Pulse Resp BP Pulse Ox 11/29/18 04:55 36.6 C 82 16 156/73 H 93 11/28/18 23:45 36.9 C 79 18 181/83 H 98 Intake & Output: Intake & Output 11/26/18 11/27/18 11/28/18 11/29/18 23:59 23:59 23:59 23:59 Intake Total 1999 2483.61 2207.659 1708.2 Output Total 7455 453 4080 950 Balance 500 1633.61 548.608 61.2 - Objective General Appearance: positive: Alert, Moderate distress, Anxious Eyes Bilateral: positive: PERRL Eyes: OU Conjunctivae pale, OU Other (left eye droop) ENT: positive: Pharynx nml, Dry mucous membranes Neck: positive: Thyroid nml, No JVD, Trachea midline Respiratory: positive: Chest non-tender, No respiratory distress, Breath sounds nml Cardiovascular: positive: Regular rate & rhythm, No gallop, Systolic murmur Peripheral Pulses: 1+ Radial (R), 1+ Radial (L) Abdomen: positive: Non-tender, Nml bowel sounds, Other (rounded, soft) Back: positive: Nml inspection Skin: positive: No rash, Warm, Dry Extremities: positive: Non-tender, Full ROM, Pedal edema (dependent) Neurologic/Psychiatric: positive: Oriented x3, Weakness, Facial droop, Slurred/abnml speech, Depressed mood/affect. negative: Motor nml (ataxia) Reflexes: Bicep (R): 3+, Bicep (L): 2+ - Lab Results Fish Bones: 11/29/18 06:12 11/29/18 06:12 Other Labs: Lab Results x24hrs 11/29/18 11/29/18 11/29/18 Range/Units 06:12 06:12 05:48 WBC 8.7 (4.8-10.8) x10^3/uL RBC 5.10 (4.20-5.40) 10^6/uL Hgb 14.8 (12.0-16.0) g/dL Hct 44.1 (37.0-47.0) % MCV 86.6 (81.0-99.0) fL MCH 28.9 (27.0-31.0) pg MCHC 33.4 (32.0-36.0) g/dL RDW 14.1 (12.0-15.0) % Plt Count 176 (130-450) 10^3/uL MPV 8.2 (7.9-10.8) fL Neut # (Auto) 6.1 (1.5-6.6) 10^3/uL Lymph # (Auto) 1.6 (1.5-3.5) 10^3/uL [place] # (Auto) 0.7 (0.0-1.0) 10^3/uL Eos # (Auto) 0.2 (0.0-0.7) 10^3/uL Baso # (Auto) 0.0 (0.0-0.1) 10^3/uL Absolute Nucleated RBC 0.00 x10^3/uL Nucleated RBC % 0.1 /100WBC Sodium 136 (135-145) mmol/L Potassium 3.1 L (3.5-5.0) mmol/L Chloride 103 (101-111) mmol/L Carbon Dioxide 22 (21-32) mmol/L Anion Gap 11.0 (6-13) BUN 11 (6-20) mg/dL Creatinine 0.6 (0.4-1.0) mg/dL Estimated GFR (MDRD) 96 (>89) Glucose 165 H (70-100) mg/dL POC Whole Bld Glucose 163 H (70 - 100) mg/dL Calcium 8.6 (8.5-10.3) mg/dL 11/28/18 11/28/18 11/28/18 Range/Units 23:39 18:02 12:08 WBC (4.8-10.8) x10^3/uL RBC (4.20-5.40) 10^6/uL Hgb (12.0-16.0) g/dL Hct (37.0-47.0) % MCV (81.0-99.0) fL MCH (27.0-31.0) pg MCHC (32.0-36.0) g/dL RDW (12.0-15.0) % Plt Count (130-450) 10^3/uL MPV (7.9-10.8) fL Neut # (Auto) (1.5-6.6) 10^3/uL Lymph # (Auto) (1.5-3.5) 10^3/uL [place] # (Auto) (0.0-1.0) 10^3/uL Eos # (Auto) (0.0-0.7) 10^3/uL Baso # (Auto) (0.0-0.1) 10^3/uL Absolute Nucleated RBC x10^3/uL Nucleated RBC % /100WBC Sodium (135-145) mmol/L Potassium (3.5-5.0) mmol/L Chloride (101-111) mmol/L Carbon Dioxide (21-32) mmol/L Anion Gap (6-13) BUN (6-20) mg/dL Creatinine (0.4-1.0) mg/dL Estimated GFR (MDRD) (>89) Glucose (70-100) mg/dL POC Whole Bld Glucose 171 H 173 H 180 H (70 - 100) mg/dL Calcium (8.5-10.3) mg/dL 11/28/18 Range/Units 06:22 WBC 7.6 (4.8-10.8) x10^3/uL RBC 4.71 (4.20-5.40) 10^6/uL Hgb 13.8 (12.0-16.0) g/dL Hct 40.2 (37.0-47.0) % MCV 85.4 (81.0-99.0) fL MCH 29.2 (27.0-31.0) pg MCHC 34.2 (32.0-36.0) g/dL RDW 14.1 (12.0-15.0) % Plt Count 160 (130-450) 10^3/uL MPV 8.2 (7.9-10.8) fL Neut # (Auto) 5.2 (1.5-6.6) 10^3/uL Lymph # (Auto) 1.5 (1.5-3.5) 10^3/uL [place] # (Auto) 0.6 (0.0-1.0) 10^3/uL Eos # (Auto) 0.2 (0.0-0.7) 10^3/uL Baso # (Auto) 0.0 (0.0-0.1) 10^3/uL Absolute Nucleated RBC 0.01 x10^3/uL Nucleated RBC % 0.1 /100WBC Sodium (135-145) mmol/L Potassium (3.5-5.0) mmol/L Chloride (101-111) mmol/L Carbon Dioxide (21-32) mmol/L Anion Gap (6-13) BUN (6-20) mg/dL Creatinine (0.4-1.0) mg/dL Estimated GFR (MDRD) (>89) Glucose (70-100) mg/dL POC Whole Bld Glucose (70 - 100) mg/dL Calcium (8.5-10.3) mg/dL ABX Reporting Has patient been on IV antibiotics over the past 48 hours?: No Sepsis Event Note (H) - Evaluation Current Stage of Sepsis: Ruled out Assessment/Plan - Problem List (1) Stroke, Wallenberg's syndrome Impression: - 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 - Very poor swallowing on latest speech evaluation - Ataxia with drift to the left is noted Plan: Continue NPO, PT/OT, await placement (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) Impression: -Underwent a VSS on 11/27/2018, which confirmed a very poor swallow Plan: Continue strict NPO (3) Diabetes mellitus, type II Impression: -Home med was Lantus 20 units - Blood sugars have been 154-180 Plan: Continue Q6H blood sugars, SSI Qualifiers: Diabetes mellitus 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
[2018-11-29] MEDS ORDERED: BISACODYL 10 MG SUPP PR SCH (07:27)
[2018-11-29] MEDS: OXYMETAZOLINE NASAL SPRAY NAS PRN (07:44)
[2018-11-29] MEDS: POLYETHYLENE GLYCOL 3350 17 GM PACKET PO SCH (10:23)
[2018-11-29] MEDS: ASPIRIN 300 MG SUPP PR SCH (11:27)
--- NOTE | 2018-11-29 14:05 | PROVIDER PROGRESS NOTE ---
Subjective - Prog Note Date Prog Note Date: 11/29/18 Prog Note Time: 13:00 - Subjective Pt reports feeling: No change Subjective: Ju complains of not eating and her family has brought in food. She refuses to follow medical advise by remaining NPO. Current Medications - Current Medications Current Medications: Active Medications Acetaminophen (Tylenol) 650 mg IA Q6HR PRN PRN Reason: Pain or Fever > 38C (100.4F) Aspirin () 300 mg IA DAILY VALERIANO Last Admin: 11/29/18 11:27 Dose: 300 mg Hydralazine HCl (Apresoline Inj) 10 mg IVP Q4H PRN PRN Reason: PER PHYSICIAN ORDER Last Admin: 11/28/18 22:21 Dose: 10 mg Hydromorphone HCl (Dilaudid Inj Carp) 1 mg IVP Q2HR PRN PRN Reason: PAIN Multivitamins 10 ml/ Thiamine HCl 100 mg/ Folic Acid 1 mg/Sodium Chloride 1,011.2 mls @ 100 mls/hr IV Q24H VALERIANO Last Admin: 11/29/18 14:33 Dose: 100 mls/hr Potassium Chloride/Sodium Chloride (Normal Saline 0.9% W/20 Meq Kcl) 1,000 mls @ 83.333 mls/hr IV .Q12H VALERIANO Last Admin: 11/29/18 06:35 Dose: 83.333 mls/hr Acetaminophen (Ofirmev) 100 mls @ 400 mls/hr IV Q6HR PRN PRN Reason: PAIN Labetalol HCl (Trandate Syringe) 10 mg IVP Q4H PRN PRN Reason: PER PHYSICIAN ORDER Last Admin: 11/29/18 12:43 Dose: 10 mg Lorazepam (Ativan Inj (Vial)) 0.5 mg IVP Q2H PRN PRN Reason: Anxiety Last Admin: 11/29/18 15:38 Dose: 0.5 mg Oxymetazoline HCl (Afrin) 2 sprays FABRICIO BID PRN PRN Reason: Nasal Congestion Last Admin: 11/29/18 07:44 Dose: 1 spray Sodium Chloride (Normal Saline Flush 0.9%) 10 ml IVP PRN PRN PRN Reason: NEEDED PER PROVIDER ORDERS Last Admin: 11/29/18 06:42 Dose: 10 ml Sodium Chloride (Normal Saline Flush 0.9%) 10 ml IVP 0100,0900,1700 VALERIANO Last Admin: 11/29/18 16:08 Dose: Not Given Insulin Glargine [Lantus Solostar] 20 units SQ DAILY 05/04/17 Metoprolol Tartrate 25 mg PO DAILY 05/04/17 Cholecalciferol (Vitamin D3) [Vitamin D3] 1,000 unit PO DAILY 11/25/18 Multivitamin [Multiple Vitamins] 1 each PO DAILY 11/25/18 Objective - Vital Signs/Intake & Output Reviewed Vital Signs: Yes Vital Signs: Vital Signs x48h Temp Pulse Resp BP Pulse Ox 11/29/18 12:28 36.6 C 78 18 191/86 H 94 11/29/18 07:49 36.7 C 72 16 181/78 H 97 Intake & Output: Intake & Output 11/26/18 11/27/18 11/28/18 11/29/18 23:59 23:59 23:59 23:59 Intake Total 1999 2483.61 8948.240 4764.2 Output Total 3872 631 2468 1750 Balance 500 1633.61 548.608 -738.8 - Objective General Appearance: positive: Alert, Moderate distress, Anxious Eyes Bilateral: positive: PERRL Eyes: OU Conjunctivae pale, OU Other (left eye droop) ENT: positive: Dry mucous membranes Neck: positive: Thyroid nml, No JVD, Trachea midline Respiratory: positive: Chest non-tender, Rhonchi Cardiovascular: positive: No gallop, Irregularly irregular, Systolic murmur, Decreased pulse(s) Peripheral Pulses: 1+ Radial (R), 1+ Radial (L) Abdomen: positive: Non-tender, Nml bowel sounds Back: positive: Nml inspection Skin: positive: No rash, Warm, Dry Extremities: positive: Non-tender, Pedal edema, Joint swelling Neurologic/Psychiatric: positive: Disoriented to time, Weakness, Sensory loss, Facial droop, Slurred/abnml speech, Depressed mood/affect, Other (memory i mpairment) Reflexes: Bicep (R): 3+, Bicep (L): 3+ - Lab Results Fish Bones: 11/29/18 06:12 11/29/18 06:12 Other Labs: Lab Results x24hrs 11/29/18 11/29/18 11/29/18 Range/Units 12:07 06:12 06:12 WBC 8.7 (4.8-10.8) x10^3/uL RBC 5.10 (4.20-5.40) 10^6/uL Hgb 14.8 (12.0-16.0) g/dL Hct 44.1 (37.0-47.0) % MCV 86.6 (81.0-99.0) fL MCH 28.9 (27.0-31.0) pg MCHC 33.4 (32.0-36.0) g/dL RDW 14.1 (12.0-15.0) % Plt Count 176 (130-450) 10^3/uL MPV 8.2 (7.9-10.8) fL Neut # (Auto) 6.1 (1.5-6.6) 10^3/uL Lymph # (Auto) 1.6 (1.5-3.5) 10^3/uL Butts # (Auto) 0.7 (0.0-1.0) 10^3/uL Eos # (Auto) 0.2 (0.0-0.7) 10^3/uL Baso # (Auto) 0.0 (0.0-0.1) 10^3/uL Absolute Nucleated RBC 0.00 x10^3/uL Nucleated RBC % 0.1 /100WBC Sodium 136 (135-145) mmol/L Potassium 3.1 L (3.5-5.0) mmol/L Chloride 103 (101-111) mmol/L Carbon Dioxide 22 (21-32) mmol/L Anion Gap 11.0 (6-13) BUN 11 (6-20) mg/dL Creatinine 0.6 (0.4-1.0) mg/dL Estimated GFR (MDRD) 96 (>89) Glucose 165 H (70-100) mg/dL POC Whole Bld Glucose 165 H (70 - 100) mg/dL Calcium 8.6 (8.5-10.3) mg/dL 11/29/18 11/28/18 11/28/18 Range/Units 05:48 23:39 18:02 WBC (4.8-10.8) x10^3/uL RBC (4.20-5.40) 10^6/uL Hgb (12.0-16.0) g/dL Hct (37.0-47.0) % MCV (81.0-99.0) fL MCH (27.0-31.0) pg MCHC (32.0-36.0) g/dL RDW (12.0-15.0) % Plt Count (130-450) 10^3/uL MPV (7.9-10.8) fL Neut # (Auto) (1.5-6.6) 10^3/uL Lymph # (Auto) (1.5-3.5) 10^3/uL Butts # (Auto) (0.0-1.0) 10^3/uL Eos # (Auto) (0.0-0.7) 10^3/uL Baso # (Auto) (0.0-0.1) 10^3/uL Absolute Nucleated RBC x10^3/uL Nucleated RBC % /100WBC Sodium (135-145) mmol/L Potassium (3.5-5.0) mmol/L Chloride (101-111) mmol/L Carbon Dioxide (21-32) mmol/L Anion Gap (6-13) BUN (6-20) mg/dL Creatinine (0.4-1.0) mg/dL Estimated GFR (MDRD) (>89) Glucose (70-100) mg/dL POC Whole Bld Glucose 163 H 171 H 173 H (70 - 100) mg/dL Calcium (8.5-10.3) mg/dL ABX Reporting Has patient been on IV antibiotics over the past 48 hours?: No Sepsis Event Note (H) - Evaluation Current Stage of Sepsis: Ruled out Assessment/Plan - Problem List (1) Stroke, 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 Again, I personally advised them that it is against our medical advice. - Since patient is not accepting medical advice, she may not meet criteria for this admission. 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 (4) Hypertension Impression: -B/Ps remain moderate elevated at 174/69 today - PRNs labatolol and hydralazine for SBP greater than 180 Plan: Allow elevated values until day 3-4 Qualifiers: Hypertension type: essential hypertension Qualified Code(s): I10 - Essential (primary) hypertension (5) Sciatica Impression: - per chart review, has had problems since 2017 - New on set on 04/23/2017 when waking up in the morning - Duloxetine was prescribed, but is not currently on this due to no PO Plan: Give IV lorazepam or IV hydromorphone for pain if needed Qualifiers: Laterality: right Qualified Code(s): M54.31 - Sciatica, right side (6) Medical non-compliance Impression: Patient continues to ask her family to bring in food, which they are. She refuses a PEG tube, but will not wait until passing her swallow evaluation in order to safely swallow food Plan: Likely discharge based on aspiration risk and not complying with what is recommended medically
[2018-11-29] MEDS ORDERED: ACETAMINOPHEN 1,000 MG/100 ML 100 ML IV PRN (14:09)
[2018-11-29] MEDS ORDERED: HYDROmorphone 1 MG/ML CARPUJECT IVP PRN (14:10)
[2018-11-29] MEDS: MULTIVITAMIN 10 ML, THIAMINE INJ 100 MG, FOLIC ACID INJ 1 MG in SODIUM CHLORIDE 0.9% 1,... IV SCH (14:33)
[2018-11-30] MEDS: SODIUM CHLORIDE FLUSH 0.9% 10 ML SYRINGE IVP SCH ×4 (01:31→23:59)
[2018-11-30] MEDS: OXYMETAZOLINE NASAL SPRAY NAS PRN ×2 (05:06→16:11)
[2018-11-30 05:51] LABS: BASOPHILS # (AUTO) 0.1 10^3/uL (0.0-0.1); BASOPHILS % (AUTO) 0.8 %; EOSINOPHILS # (AUTO) 0.3 10^3/uL (0.0-0.7); EOSINOPHILS % (AUTO) 3.9 %; HGB - HEMOGLOBIN 14.7 g/dL (12.0-16.0); LYMPHOCYTES # (AUTO) 1.5 10^3/uL (1.5-3.5); LYMPHOCYTES % (AUTO) 20.2 %; MEAN CORPUSCULAR HEMOGLOBIN 29.1 pg (27.0-31.0); MEAN CORPUSCULAR HGB CONC 33.5 g/dL (32.0-36.0); MEAN CORPUSCULAR VOLUME 86.8 fL (81.0-99.0); MONOCYTES # (AUTO) 0.6 10^3/uL (0.0-1.0); MONOCYTES % (AUTO) 8.7 %; NEUTROPHILS # (AUTO) 4.9 10^3/uL (1.5-6.6); NEUTROPHILS % (AUTO) 66.4 %; PLT - PLATELET COUNT 192 10^3/uL (130-450); RED BLOOD COUNT 5.06 10^6/uL (4.20-5.40); RED CELL DISTRIBUTION WIDTH 14.3 % (12.0-15.0); WHITE BLOOD COUNT 7.4 x10^3/uL (4.8-10.8)
[2018-11-30 06:01] LABS: CALCIUM 8.9 mg/dL (8.5-10.3); CREATININE 0.6 mg/dL (0.4-1.0)
[2018-11-30] MEDS: NS W/20 MEQ KCL 1,000 ML IV SCH ×2 (06:06→21:19)
[2018-11-30] MEDS: ASPIRIN 300 MG SUPP PR SCH (08:50)
[2018-11-30] MEDS ORDERED: BISACODYL 10 MG SUPP PR ONE (08:57)
[2018-11-30] MEDS: MULTIVITAMIN 10 ML, THIAMINE INJ 100 MG, FOLIC ACID INJ 1 MG in SODIUM CHLORIDE 0.9% 1,... IV SCH (13:00)
--- NOTE | 2018-11-30 16:08 | MISCELLANEOUS PROVIDER NOTE ---
Miscellaneous Provider Note - - Note: Subjective: Patient is adamant on not receiving a peg tube placement for her medullary infarct/Wallenberg syndrome. Patient states that her mother had a similar stroke and had a PEG placed and is adamant on not receiving a PEG. She is also denied TPN nutrition. Patient continues to have food being provided by her son and other family members. Next Objective: Vital signs hemodynamically stable General Appearance: positive: Alert, no distress, Calm and cooperative Eyes Bilateral: positive: PERRL Eyes: OU Conjunctivae pale, OU Other (left eye droop) ENT: positive: Dry mucous membranes Neck: positive: Thyroid nml, No JVD, Trachea midline Respiratory: positive: Chest non-tender, Rhonchi Cardiovascular: positive: No gallop, Irregularly irregular, Systolic murmur, Decreased pulse(s) Peripheral Pulses: 1+ Radial (R), 1+ Radial (L) Abdomen: positive: Non-tender, Nml bowel sounds Back: positive: Nml inspection Skin: positive: No rash, Warm, Dry Extremities: positive: Non-tender, Pedal edema, Joint swelling Neurologic/Psychiatric: positive: Conscious alert and oriented x3, Persistence of Weakness, Sensory loss, Facial droop, Slurred/abnml speech, Depressed mood/affect, Other (memory impairment) Reflexes: Bicep (R): 3+, Bicep (L): 3+ Labs: Reviewed next Imaging studies: Reviewed next Assessment/plan: (1) Stroke, Wallenberg's syndrome Impression: - 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 Plan: Patient continues to be an aspiration risk although she refuses TPN/PEG placement she continues to eat food being brought by family members and has accepted the risk of aspiration albeit NG tube placement and/or PEG does not guarantee aspiration risk she could will accept the fact that continuing eating will put her at risk for aspiration pneumonitis with possible respiratory failure. Speech pathology will reevaluate patient to modify her existing diet currently at a dysphagia thin liquid consistency. 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 discontinued and advanced to dysphagia diet as per speech pathology with further recommendations. Consider palliative/hospice due to medical noncompliance that would put her at high risk for aspiration pneumonitis/pneumonia. On further assessment with speech pathology patient does and is showing signs and symptoms of silent aspiration with coughing after thin liquids. Runny nose. Patient has elected to continue with QOL diet knowing the risks. (3) Silent aspiration -Patient has signs and symptoms of silent aspiration as per ST and recommends to continue n.p.o. however patient has refused medical compliance to include a PEG placement and TPN and will elect for QOL diet knowing the risks of aspiration are high. 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 - PRNs labatolol and hydralazine With parameters. Plan: Continue with BP management Qualifiers: Hypertension type: essential hypertension Qualified Code(s): I10 - Essential (primary) hypertension (6)Hypokalemia secondary to decrease nutritional intake Plan: Seong K elixir 40 mEq p.o. daily (7) Medical non-compliance Impression: Patient with medical noncompliance visible with multiple providers previously and continues to ask family to bring her in food despite aspiration risk which she has now taken upon herself to except aspiration risk with subsequent respiratory failure if complications arise. Patient may be silently aspirating if dysphagia with thin liquids would be instituted however speech pathology will reevaluate for food consistency at this time. Currently she is refusing PEG as well as TPN for nutritional support. Consider palliative/hospice due to medical noncompliance that would put her at high risk for aspiration pn eumonitis/pneumonia. Continue with DVT/GI prophylaxis
[2018-11-30 16:34] LABS: HB2 TOTAL 15.8 g/dL; HEMOGLOBIN A1C 1.33 g/dL; HEMOGLOBIN A1C % 9.9 % (4.6-6.2)
[2018-11-30] MEDS: INSULIN ASPART 300 UNIT/3 ML PEN SUBQ SCH ×2 (17:03→21:20)
[2018-11-30] MEDS: POTASSIUM CHLORIDE 20 MEQ/15 ML UDC PO SCH (17:58)
[2018-12-01] MEDS: INSULIN ASPART 300 UNIT/3 ML PEN SUBQ SCH ×4 (08:19→21:55)
[2018-12-01] MEDS: POTASSIUM CHLORIDE 20 MEQ/15 ML UDC PO SCH (08:19)
[2018-12-01] MEDS: NS W/20 MEQ KCL 1,000 ML IV SCH (08:19)
[2018-12-01] MEDS: ASPIRIN 300 MG SUPP PR SCH (08:19)
[2018-12-01] MEDS: SODIUM CHLORIDE FLUSH 0.9% 10 ML SYRINGE IVP SCH ×2 (08:20→17:42)
[2018-12-01] MEDS: hydrALAZINE INJ 20 MG/ML VIAL IVP PRN (08:28)
[2018-12-01] MEDS ORDERED: METOPROLOL TARTRATE 25 MG TABLET PO SCH (10:00)
[2018-12-01 10:07] LABS: ALBUMIN 3.4 g/dL (3.2-5.5); CALCIUM 9.1 mg/dL (8.5-10.3); CREATININE 0.6 mg/dL (0.4-1.0); MAGNESIUM 1.7 mg/dL (1.7-2.8); PHOSPHORUS 2.5 mg/dL (2.5-4.6)
--- NOTE | 2018-12-01 13:48 | MISCELLANEOUS PROVIDER NOTE ---
Miscellaneous Provider Note - - Note: Subjective: Patient seen at bedside with no acute events other than a nonproductive cough and complains of left hand numbness. Patient has been receiving a pured thin liquid diet which she does not agree with and speech pathology following closely. Objective: Vital signs hemodynamically stable General Appearance: positive: Alert, no distress, Calm and cooperative, Nonproductive clearing of throat with cough Eyes Bilateral: positive: PERRL Eyes: OU Conjunctivae pale, OU Other (left eye droop) ENT: positive: Dry mucous membranes Neck: positive: Thyroid nml, No JVD, Trachea midline Respiratory: positive: Chest non-tender, mild upper Rhonchi Cardiovascular: positive: No gallop, Irregularly irregular, Systolic murmur, Decreased pulse(s) Peripheral Pulses: 1+ Radial (R), 1+ Radial (L) Abdomen: positive: Non-tender, Nml bowel sounds Back: positive: Nml inspection Skin: positive: No rash, Warm, Dry Extremities: positive: Non-tender, Pedal edema, Joint swelling Neurologic/Psychiatric: positive: Conscious alert and oriented x3, Persistence of Weakness, Sensory loss, Facial droop, Slurred/abnml speech, Depressed mood/affect, Other (memory impairment) Reflexes: Bicep (R): 3+, Bicep (L): 3+ Labs: Reviewed next Imaging studies: Reviewed next Assessment/plan: (1) Stroke, Wallenberg's syndrome Impression: - 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 Physical therapy has recommended senior living facility. propagation worker working on [place] at [place] which is pending. Plan: Patient continues to be an aspiration risk although she refuses TPN/PEG placement she continues to eats food however has been given a quality of life diet for now with initial pured thin liquid and has been now transitioned over to pured thickened liquid per patient preference understanding the risks versus benefits of previously prescribed n.p.o. status with PEG placement versus contin uing with her existing diet which puts her at high risk for aspiration pneumonia/pneumonitis. 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 Plan: Currently on a quality of life diet With pured honey thickened consistency liquids. (3) Silent aspiration -Patient has signs and symptoms of silent aspiration as per ST and recommends To continue with cueing after meals and drinking current quality of life pured with honey thickened consistency liquids. However, patient has refused medical compliance to include a PEG placement and TPN and will elect for QOL diet knowing the risks of aspiration are high. (4) Diabetes mellitus, type II; Uncontrolled, Hemoglobin A1c 9.9 Impression: -Home med was Lantus 20 units - Sugars Above 350 Plan: Diabetic education counseling and teaching. Continue with basal coverage with Lantus at 15 units as well as insulin sliding scale correctional dose for bolus coverage Qualifiers: Diabetes mellitus correction insulin use: with correction use (5) Hypertension Impression: -Due to recent stroke will avoid watershed effect and will allow permissive. - PRNs hydralazine With parameters. We will place on low-dose metoprolol at 12.5 mg daily, As she is currently out of window for water shedding after an acute stroke. Plan: Continue with BP management Qualifiers: Hypertension type: essential hypertension Qualified Code(s): I10 - Essential (primary) hypertension (6) Hypokalemia secondary to decrease nutritional intake; Resolved Plan: Continue with K-elixir 40 mEq p.o. daily (7) Medical non-compliance Impression: Patient with medical noncompliance visible with multiple providers previously and continues to ask family to bring her in food despite aspiration risk which she has now taken upon herself to except aspiration risk with subsequent respiratory failure if complications arise. As per speech pathology patient has signs and symptoms of silent aspiration and has failed barium study along with continued oral pharyngeal dysphasia with aspiration noted on pured thin liquids consistency. Patient has now been transitioned over to quality of life pured honey thickened liquids although this is dense and will cause more aspiration and inflammatory changes to lung. Currently she is refusing PEG as well as TPN for nutritional support. Consult palliative due to medical noncompliance that would put her at high risk for aspiration pneumonitis/pneumonia. Continue with DVT/GI prophylaxis Patient requires more than 96 hours of inpatient hospitalization due to ongoing medical management, ongoing physical therapy and awaiting senior living facility placement.
[2018-12-01] MEDS ORDERED: MECLIZINE 12.5 MG TABLET PO PRN (13:55)
[2018-12-01] MEDS: MULTIVITAMIN 10 ML, THIAMINE INJ 100 MG, FOLIC ACID INJ 1 MG in SODIUM CHLORIDE 0.9% 1,... IV SCH (14:04)
[2018-12-01] MEDS ORDERED: INSULIN GLARGINE 300 UNIT/3 ML PEN SUBQ SCH ×2 (21:00→23:43)
[2018-12-02] MEDS: SODIUM CHLORIDE FLUSH 0.9% 10 ML SYRINGE IVP SCH ×4 (00:15→23:54)
[2018-12-02 05:53] LABS: BASOPHILS # (AUTO) 0.1 10^3/uL (0.0-0.1); BASOPHILS % (AUTO) 0.9 %; EOSINOPHILS # (AUTO) 0.3 10^3/uL (0.0-0.7); EOSINOPHILS % (AUTO) 3.5 %; HGB - HEMOGLOBIN 14.6 g/dL (12.0-16.0); LYMPHOCYTES # (AUTO) 1.7 10^3/uL (1.5-3.5); LYMPHOCYTES % (AUTO) 18.9 %; MEAN CORPUSCULAR HEMOGLOBIN 28.9 pg (27.0-31.0); MEAN CORPUSCULAR HGB CONC 33.7 g/dL (32.0-36.0); MEAN CORPUSCULAR VOLUME 85.8 fL (81.0-99.0); MEAN PLATELET VOLUME 7.9 fL (7.9-10.8); MONOCYTES # (AUTO) 0.8 10^3/uL (0.0-1.0); MONOCYTES % (AUTO) 8.6 %; NEUTROPHILS % (AUTO) 68.1 %; PLT - PLATELET COUNT 188 10^3/uL (130-450); RED BLOOD COUNT 5.04 10^6/uL (4.20-5.40); RED CELL DISTRIBUTION WIDTH 14.1 % (12.0-15.0); WHITE BLOOD COUNT 8.8 x10^3/uL (4.8-10.8)
[2018-12-02 06:05] LABS: ALBUMIN 3.3 g/dL (3.2-5.5); CALCIUM 8.9 mg/dL (8.5-10.3); CREATININE 0.7 mg/dL (0.4-1.0)
[2018-12-02] MEDS ORDERED: cloNIDine 0.1 MG PATCH TOP SCH (09:00)
[2018-12-02] MEDS: POTASSIUM CHLORIDE 20 MEQ/15 ML UDC PO SCH (09:16)
[2018-12-02] MEDS: POTASSIUM CHLOR 10 MEQ/100 ML 10 MEQ/100 ML BAG IV SCH ×2 (09:20→10:45)
[2018-12-02] MEDS: ASPIRIN 300 MG SUPP PR SCH (09:23)
[2018-12-02] MEDS: INSULIN ASPART 300 UNIT/3 ML PEN SUBQ SCH ×4 (09:25→21:53)
[2018-12-02] MEDS ORDERED: LIDOCAINE PATCH 5% TOP PRN (11:04)
--- NOTE | 2018-12-02 11:55 | MISCELLANEOUS PROVIDER NOTE ---
Miscellaneous Provider Note - - Note: Subjective: Patient seen at bedside with no acute respiratory complaints. Still complaining of left hand numbness. She does have a history of diabetes however no mention of neuropathy. Objective: Vital signs hemodynamically stable General Appearance: positive: Alert, no distress, Calm and cooperative. Eyes Bilateral: positive: Decreased pupil size and drooping eyelid with diplopia to left Eyes: OU Conjunctivae pale, OU Other (left eye droop), Improved ENT: positive: Dry mucous membranes Neck: positive: Thyroid nml, No JVD, Trachea midline Respiratory: positive: Chest non-tender, mild upper Rhonchi Cardiovascular: positive: No gallop,Regular, Systolic murmur, Decreased pulse(s) Peripheral Pulses: 1+ Radial (R), 1+ Radial (L) Abdomen: positive: Non-tender, Nml bowel sounds Back: positive: Nml inspection Skin: positive: No rash, Warm, Dry Extremities: positive: Non-tender, Pedal edema, Joint swelling Neurologic/Psychiatric: positive: Conscious alert and oriented x3, Persistence of Weakness To left lower extremity, left hand, Sensory loss, Mild Facial droop, Slurred/abnml speech, Depressed mood/affect, Other (memory impairment); Improved Reflexes: Bicep (R): 3+, Bicep (L): 3+ Labs: Reviewed next Imaging studies: Reviewed next Assessment/plan: (1) Stroke, Wallenberg's syndrome Impression: - 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 She may benefit from Neurontin However currently unable to swallow pills. There has been some studies on the administration of Zoloft post ischemic stroke which may benefit as well once she tolerates oral meds. - PT reports very poor safety awareness, poor gait, and would benefit from Inpatient rehab For continued physical therapy. Alternatively, SNF [facility] Is an option if patient is unable to be accepted for inpatient rehab at [facility]. Unfortunately patient was denied at inpatient [facility] at [facility] due to patient's unwillingness to comply with medical management and therapies. Plan: Physical therapy has deemed patient a candidate for inpatient rehab for ongoing physical therapy occupational therapy and speech therapies. I believe this is the best option for the patient despite her initial medical noncompliance which is not the current issue at the present moment as she is taking all her medications as scheduled not refusing any deviation from her current quality of life pured honey thickened diet that has been recommended by speech pathology. 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 Plan: Currently on a quality of life diet With pured honey thickened consistency liquids. Continue to monitor on a daily basis. (3) Silent aspiration -Patient has signs and symptoms of silent aspiration as per ST and recommends to continue with cueing after meals and drinking current quality of life pured with honey thickened consistency liquids. Although patient has accepted the risk of aspiration she does at the present moment shows no signs of aspiration pneumonia or infection. I believe with proper cueing and continuing monitoring patient's swallowing/eating with each meal patient will likely benefit from ongoing speech pathology and inpatient rehab. Medical noncompliance is currently not the issue other than her to benefit inpatient rehab to optimize full recovery from her left lateral medullary infarct. (4) Diabetes mellitus, type II; Uncontrolled, Hemoglobin A1c 9.9 Impression: -Home med was Lantus 20 units, We will titrate Lantus 15 units subcu twice daily while inpatient. - Sugars Above 350 Plan: Diabetic education counseling and teaching. Continue with basal coverage with Lantus at 15 units BID, as well as insulin sliding scale correctional dose for bolus coverage Qualifiers: Diabetes mellitus long-term insulin use: with long-term use (5) Hypertension Impression: -Patient initially was managed with avoiding watershed infarct by permissive BPs however she is out of window for maintaining high IC BP's from initial stroke and may benefit from slow titration of clonidine patch - PRNs hydralazine With parameters. Plan: Continue with BP management Qualifiers: Hypertension type: essential hypertension Qualified Code(s): I10 - Essential (primary) hypertension (6) Hypokalemia secondary to decrease nutritional intake; Resolved Plan: Continue with K-elixir 40 mEq p.o. 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 Continue with PT, Continue with medical management Alpesh who is the patient's son may be contacted at [phone] Continue with DVT/GI prophylaxis Attestation: Patient requires more than 96 hours of inpatient hospitalization due to ongoing medical management, ongoing physical therapy and awaiting halfway facility placement.
[2018-12-02] MEDS: INSULIN GLARGINE 300 UNIT/3 ML PEN SUBQ SCH ×2 (12:09→21:59)
[2018-12-02] MEDS: MULTIVITAMIN 10 ML, THIAMINE INJ 100 MG, FOLIC ACID INJ 1 MG in SODIUM CHLORIDE 0.9% 1,... IV SCH (16:04)
[2018-12-02] MEDS: hydrALAZINE INJ 20 MG/ML VIAL IVP PRN ×2 (16:09→23:53)
[2018-12-02] MEDS: ACETAMINOPHEN 1,000 MG/100 ML 100 ML IV PRN (17:08)
[2018-12-02] MEDS ORDERED: INSULIN GLARGINE 300 UNIT/3 ML PEN SUBQ SCH (21:00)
[2018-12-02] MEDS ORDERED: INSULIN ASPART 300 UNIT/3 ML PEN SUBQ ONE (21:34)
[2018-12-02] MEDS: OXYMETAZOLINE NASAL SPRAY NAS PRN (22:05)
[2018-12-02] MEDS: SODIUM CHLORIDE FLUSH 0.9% 10 ML SYRINGE IVP PRN (23:54)
[2018-12-03 05:55] LABS: BASOPHILS # (AUTO) 0.1 10^3/uL (0.0-0.1); BASOPHILS % (AUTO) 0.9 %; EOSINOPHILS # (AUTO) 0.3 10^3/uL (0.0-0.7); EOSINOPHILS % (AUTO) 3.9 %; HGB - HEMOGLOBIN 15.3 g/dL (12.0-16.0); LYMPHOCYTES # (AUTO) 1.7 10^3/uL (1.5-3.5); LYMPHOCYTES % (AUTO) 22.9 %; MEAN CORPUSCULAR HGB CONC 33.6 g/dL (32.0-36.0); MEAN CORPUSCULAR VOLUME 86.5 fL (81.0-99.0); MEAN PLATELET VOLUME 8.2 fL (7.9-10.8); MONOCYTES # (AUTO) 0.8 10^3/uL (0.0-1.0); MONOCYTES % (AUTO) 10.6 %; NEUTROPHILS # (AUTO) 4.7 10^3/uL (1.5-6.6); NEUTROPHILS % (AUTO) 61.7 %; PLT - PLATELET COUNT 213 10^3/uL (130-450); RED BLOOD COUNT 5.28 10^6/uL (4.20-5.40); WHITE BLOOD COUNT 7.6 x10^3/uL (4.8-10.8)
[2018-12-03 06:12] LABS: ALBUMIN 3.5 g/dL (3.2-5.5); CALCIUM 8.9 mg/dL (8.5-10.3); CREATININE 0.5 mg/dL (0.4-1.0); PHOSPHORUS 3.8 mg/dL (2.5-4.6)
[2018-12-03] MEDS: SODIUM CHLORIDE FLUSH 0.9% 10 ML SYRINGE IVP PRN (06:29)
[2018-12-03] MEDS: ACETAMINOPHEN 1,000 MG/100 ML 100 ML IV PRN ×2 (06:29→12:54)
--- NOTE | 2018-12-03 07:42 | CT Report ---
Reason: WORSENING WEAKNESS Procedure Date: 12/03/2018 Accession Number: [id number] / [id number] Procedure: CT - Head W/O Stroke Protocol CPT Code: FULL RESULT: EXAM: CT HEAD EXAM DATE: 12/03/2018 07:29 AM. CLINICAL HISTORY: WORSENING WEAKNESS. COMPARISON: HEAD ANGIO 11/24/2018 9:01 PM. TECHNIQUE: Multiaxial CT images were obtained from the foramen magnum to the vertex. Reformats: Sagittal and coronal. IV contrast: None. In accordance with CT protocol optimization, one or more of the following dose reduction techniques were utilized for this exam: automated exposure control, adjustment of mA and/or KV based on patient size, or use of iterative reconstructive technique. FINDINGS: Parenchyma: No intraparenchymal hemorrhage. No evidence of mass, midline shift, or CT findings of acute infarction. Zhao-white differentiation is distinct. Diffuse chronic microangiopathic white matter changes are evident. Extraaxial Spaces: Normal for age. No subdural or epidural collections identified. Ventricles: The ventricles and cortical sulci are enlarged, consistent with age-related tissue loss. Sinuses and orbits: Imaged paranasal sinuses, orbits, and mastoids show no significant abnormality. Bones: No evidence of fracture or calvarial defect. Other: None. IMPRESSION: Generalized age-related cortical atrophic changes without evidence of acute intracranial abnormality. [facility] The critical test notification system was initiated by Dr. Mansi Parrish at 07:37 AM on 12/03/2018. The above critical test findings were discussed with ROSY Thao by Dr. Mansi Parrish at 07:40 AM on 12/03/2018.
[2018-12-03] MEDS ORDERED: NS W/20 MEQ KCL 1,000 ML IV SCH (08:00)
[2018-12-03] MEDS ORDERED: INSULIN ASPART 300 UNIT/3 ML PEN SUBQ SCH (08:00)
[2018-12-03 08:09] LABS: INR 1.2 (0.8-1.2); PT - PROTHROMBIN TIME 12.9 secs (9.9-12.6)
[2018-12-03] MEDS: SODIUM CHLORIDE FLUSH 0.9% 10 ML SYRINGE IVP SCH ×2 (08:57→17:01)
[2018-12-03] MEDS: INSULIN ASPART 300 UNIT/3 ML PEN SUBQ SCH ×4 (08:58→21:07)
[2018-12-03] MEDS: INSULIN GLARGINE 300 UNIT/3 ML PEN SUBQ SCH ×2 (10:49→21:08)
[2018-12-03] MEDS: POTASSIUM CHLORIDE 10 MEQ CAPSULE PO SCH (11:32)
[2018-12-03] MEDS: OXYMETAZOLINE NASAL SPRAY NAS PRN (11:32)
--- NOTE | 2018-12-03 12:12 | MISCELLANEOUS PROVIDER NOTE ---
Miscellaneous Provider Note - - Note: Subjective: Patient seen at bedside with no acute respiratory complaints. Patient complaining of bitemporal headaches. Left hand numbness off and on. Right hip pain. Objective: Vital signs hemodynamically stable, Labile blood pressures. As high as 207 systolic with current in the 150s. Nontachypneic non-hypoxemic 94% O2 saturation on room air General Appearance: Bitemporal headaches. positive: Alert, no distress, Calm and cooperative. Eyes Bilateral: positive: Decreased pupil size and drooping eyelid with diplopia to left Eyes: OU Conjunctivae pale, OU Other (left eye droop), Improved ENT: positive: Dry mucous membranes Neck: positive: Thyroid nml, No JVD, Trachea midline Respiratory: positive: Chest non-tender, mild upper Rhonchi Cardiovascular: positive: No gallop,Regular, Systolic murmur, Decreased pulse(s) Peripheral Pulses: 1+ Radial (R), 1+ Radial (L) Abdomen: positive: Non-tender, Nml bowel sounds Back: positive: Nml inspection Skin: positive: No rash, Warm, Dry Extremities: positive: Non-tender, Pedal edema, Joint swelling Neurologic/Psychiatric: positive: Conscious alert and oriented x3, Persistence of Weakness To left lower extremity, left hand, Sensory loss, Mild Facial droop, Slurred/abnml speech; Improved. 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 Repeat CT head on 12/03 reveals no acute infarcts - Very poor swallowing on latest speech evaluation. ST is reevaluating patient periodically. - Ataxia with drift to the left is noted, This has improved somewhat. -Sensory loss noted to the left hand and digits with temperature loss consistent with Wallenberg's syndrome. She may benefit from Neurontin, However currently unable to swallow pills. There has been some studies on the administration of Zoloft post ischemic stroke which may benefit. Continue with aspirin will crush and dispense with honey thickened. - PT reports very poor safety awareness, poor gait, and would benefit from Inpatient rehab For continued physical therapy. Alternatively, plcmt Is an option if patient is unable to be accepted for inpatient rehab at [facility]. Unfortunately patient was denied at inpatient Rehab at [facility] due to patient's unwillingness to comply with medical management and therapies. Plan: Physical therapy has deemed patient a candidate for inpatient rehab for ongoing physical therapy occupational therapy and speech therapies. I believe this is the best option for the patient despite her initial medical noncompliance which is not the current issue at the present moment as she is taking all her medications as scheduled not refusing any deviation from her current quality of life pured honey thickened diet that has been recommended by speech pathology. Palliative care consultation done. (2) Bitemporal headaches attributable to possibly precipitous drops in blood pressure will Lability -We will convert aspirin to oral crushed to be given with honey thickened liquids. -May treat with Fioricet/Fiorinal however these are capsules. Alternatively Flexeril crushed as needed. 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 -Speech pathology initially recommended a pured diet with thin liquids however patient elected for Pured diet with honey thickened liquid consistency. Plan: Currently on a quality of life diet With pured honey thickened consistency liquids. Continue to monitor on a daily basis. (4) Silent aspiration -Patient has signs and symptoms of silent aspiration as per ST and recommends to continue with cueing after meals and drinking current quality of life pured with honey thickened consistency liquids. Although patient has accepted the risk of aspiration she does at the present moment shows no signs of aspiration pneumonia or infection. I believe with proper cueing and continuing monitoring patient's swallowing/eating with each meal patient will likely benefit from ongoing speech pathology and inpatient rehab. Medical noncompliance is currently not the issue other than her to benefit inpatient rehab to optimize full recovery from her left lateral medullary infarct. (5) Diabetes mellitus, type II; Uncontrolled, Hemoglobin A1c 9.9 Impression: -Home med was Lantus 20 units, We will titrate Lantus 15 units subcu twice daily while inpatient. - Sugars Have slowly improved. Plan: Diabetic education counseling and teaching. 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 Will saline lock after 2L. -Patient initially was managed with avoiding watershed infarct by permissive BPs however she Did develop headaches and some mild weakness of the left hand which appears to be at baseline. Will discontinue clonidine patch and manage with IV hydralazine as needed. - PRNs hydralazine With parameters. Plan: Continue with BP management Qualifiers: Hypertension type: essential hypertension Qualified Code(s): I10 - Essential (primary) hypertension (7) Hypokalemia secondary to decrease nutritional intake; Resolving Plan: Continue with K-elixir 40 mEq p.o. daily. 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 Continue with PT, Continue with medical management CODE STATUS: DNR with limited intervention, POLST signed. Alpesh who is the patient's son may be contacted at [phone] Continue with DVT/GI prophylaxis Attestation: Patient requires more than 96 hours of inpatient hospitalization due to ongoing medical management, ongoing physical therapy and awaiting detention facility placement.
[2018-12-03] MEDS ORDERED: CYCLOBENZAPRINE 10 MG TABLET PO PRN (12:19)
[2018-12-03] MEDS: SERTRALINE 25 MG TABLET PO SCH (12:54)
[2018-12-03] MEDS: ASPIRIN EC 325 MG TABLET PO SCH (12:54)
[2018-12-03] MEDS: PIOGLITAZONE 15 MG TABLET PO SCH (16:59)
--- NOTE | 2018-12-03 17:57 | CONSULTATION NOTE ---
Palliative Care Consultation - Referral Referring Provider: Dr. 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 She has slowly improved, with increased ability to participate in physical therapy, but does fatigue quite easily. Concern initially regarding her dysphagia as a result of her CVA, or multiple conversations regarding patient's goals and safety, patient though has improved with her swallow, she is able at this point in time to tolerate pured diet and honey thickened liquids. I am meeting with her over lunch, she does eat slowly, small bites, clears her throat appropriately, and no noted obvious choking. She has had labile blood sugars as well as labile hypertension, she presents at time of visit with some bilateral temporal headache, and left neck discomfort, reports she had been sleeping and positioned leaning to the right, this has improved through the visit. She does report some left hip pain, this is new since onset of her stroke as well. Patient describes a history of stroke, she reports she had one many years ago, that she "cured herself" with an acute pressure. She said residual changes were just with her vision. She only had difficulty with memory and numbers, but these improved over time. She reports she has had intermittent TIAs, these have presented as "fiery pain in the back of her head" over the years, but none have resulted in any prolonged disability. Her basis of comparison, is her mother had a stroke, similar to her own, and "got better", she was her caregiver for over 10 years. She was quite forgetful, no longer able to read, and no longer able to drive but perceived her mother is having fairly good quality of life. She did of a second massive stroke, went into a coma, and at the long term. She does not perceive that his quality of life, that she perceived her as a vegetable at that point in time. When asked how she was feeling given her experience with her mom, she reports she is somewhat apathetic about the whole thing, but is hopeful for her to be on a path of recover as well. She reports her quality of life has been impacted, she used to be able to garden, she reports her current quality of life is mostly supportive by her love of reading, she did still drive despite her limitations with vision. When spoke to her son Alpesh, reports that he finds her quite active, she shops for herself, does bring lunch to him, reports she is quite interactive with her family and perceives her as having good quality of life prior to this stroke and quite concerned about what her care needs will be on returning home. Medical/Surgical History - Past Medical History Cardiovascular: reports: Hypertension Neuro: CVA, TIA, Headaches Endocrine/Autoimmune: reports: Type 2 diabetes HEENT: reports: Chronic vision loss Psych: reports: Depression (reports longstanding depression) Musculoskeletal: reports: Fatigue Derm: reports: Other (cold sores) MRSA Hx?: No Social History - Living Situation Living arrangement: At home Living Situation: Alone Support System: Patient lives in a home that was previous her mother's, she shares it with her brother as far as ownership. Limited income, uses the food bank, is worried about her care needs after she returns home. [place] oldest, has a car lot that she visits frequently. She has been for many years, has been independent, reports she eats 1 meal most days, her marisela community is [employer]ian[employer]. She does find this of much comfort, and does not accept blood products. Family History - Family History Family History: Mother: , CVA/TIA, Father: , Brother: Alive and Well (brother in poor health) Medications/Allergies - Medications Active Medication List: Active Medications Acetaminophen (Tylenol) 650 mg CA Q6HR PRN PRN Reason: Pain or Fever > 38C (100.4F) Aspirin (Ecotrin) 325 mg PO DAILY VALERIANO Last Admin: 12/03/18 12:54 Dose: 325 mg Cyclobenzaprine HCl (Flexeril) 5 mg PO TID PRN PRN Reason: tension headaches Hydralazine HCl (Apresoline Inj) 10 mg IVP Q4H PRN PRN Reason: PER PHYSICIAN ORDER Last Admin: 12/02/18 23:53 Dose: 10 mg Acetaminophen (Ofirmev) 100 mls @ 400 mls/hr IV Q6HR PRN PRN Reason: headaches Last Infusion: 12/03/18 13:09 Dose: Infused Potassium Chloride/Sodium Chloride (Normal Saline 0.9% W/20 Meq Kcl) 1,000 mls @ 125 mls/hr IV .Q8H VALERIANO Last Admin: 12/03/18 08:58 Dose: 125 mls/hr Insulin Aspart (Novolog) 3 - 11 unit SUBQ 0800,1200,1700,2100 [facility]; Protocol Last Admin: 12/03/18 16:59 Dose: 9 unit Insulin Glargine (Lantus Solostar) 15 unit SUBQ BID [facility] Last Admin: 12/03/18 10:49 Dose: 15 unit Lidocaine (Lidoderm Patch) 1 patch TOP DAILY PRN PRN Reason: PAIN Last Admin: 12/02/18 12:10 Dose: 1 patch Lorazepam (Ativan Inj (Vial)) 0.5 mg IVP Q2H PRN PRN Reason: Anxiety Last Admin: 11/29/18 15:38 Dose: 0.5 mg Oxymetazoline HCl (Afrin) 2 sprays FABRICIO BID PRN PRN Reason: Nasal Congestion Last Admin: 12/03/18 11:32 Dose: 1 spray Pioglitazone HCl (Actos) 15 mg PO BIDWM [facility] Last Admin: 12/03/18 16:59 Dose: 15 mg Potassium Chloride (Micro-K) 40 meq PO DAILYWM [facility] Last Admin: 12/03/18 11:32 Dose: 40 meq Sertraline HCl (Zoloft) 12.5 mg PO DAILY [facility] Last Admin: 12/03/18 12:54 Dose: 12.5 mg Sodium Chloride (Normal Saline Flush 0.9%) 10 ml IVP PRN PRN PRN Reason: NEEDED PER PROVIDER ORDERS Last Admin: 12/03/18 06:29 Dose: 10 ml Sodium Chloride (Normal Saline Flush 0.9%) 10 ml IVP 0100,0900,1700 [facility] Last Admin: 12/03/18 17:01 Dose: 10 ml Insulin Glargine [Lantus Solostar] 20 units SQ DAILY 05/04/17 Metoprolol Tartrate 25 mg PO DAILY 05/04/17 Cholecalciferol (Vitamin D3) [Vitamin D3] 1,000 unit PO DAILY 11/25/18 Multivitamin [Multiple Vitamins] 1 each PO DAILY 11/25/18 - Allergies Allergies/Adverse Reactions: Allergies Allergy/AdvReac Type Severity Reaction Status Date / Time No Known Drug Allergies Allergy Verified 11/24/18 19:54 Review of Systems - Constitutional Constitutional: reports: Fatigue (reports easily fatigues), Weakness - Eyes Eyes: reports: Vision loss - Ears, Nose & Throat Ears, Nose & Throat: reports: Dry mouth - Cardiovascular Cardiovascular: reports: Decr. exercise tolerance. denies: Chest pain - Respiratory Respiratory: denies: Cough, Wheezing - Gastrointestinal Gastrointestinal: reports: Nausea (occasional nausea with dizzyness), Good appetite - Musculoskeletal Musculoskeletal: reports: Muscle weakness, Other (left leg pain; worsing with ambulation) - Integumentary Integumentary: reports: Dryness - Neurological Neurological: reports: General weakness, Headache, Dizziness, Memory problems (mild STM noted only; able to enage and participate in conversation) - Psychiatric Psychiatric: reports: Depression (reports history most of her life; feels somewhat apathetic as far as sadness/grief; denies persistent depressive symptoms) - Endocrine Endocrine: reports: Diabetes type 2 (reports usually has eaten one meal a day; QOL for her is eating;) - All Other Systems All Other Systems: reports: Reviewed and negative Physical Exam - Vital Signs Vital Signs: Vital Signs x48h Temp Pulse Pulse Resp BP Pulse Ox 12/03/18 16:52 89 174/94 H 12/03/18 16:24 36.4 C L 78 16 191/83 H 94 12/03/18 11:31 92 16 145/78 H 94 - Physical Exam General Appearance: positive: No acute distress, Alert Eyes Bilateral: positive: Other (left eye ptosis) ENT: positive: No signs of dehydration Neck: positive: No JVD, Trachea midline, Stiff neck (left side) Cardiovascular: positive: Regular rate & rhythm Respiratory: positive: No respiratory distress Skin: positive: Pallor, Dryness, Other (patient with cold sores causing increased discomfort; reports long hx) Neurologic/Psychiatric: positive: Oriented x3, Mood/affect nml, Weakness, Flat affect Palliative Care - POLST Patient has POLST: Yes POLST Status: DNR, Selective Treatment (completed at time of visit) Pain: Pain unchanged, Location (left hip; bilateral headache pain; improved through conversation;) Tiredness/Fatigue: Moderate (4-6) Nausea: Mild (1-3) Depression: Mild (1-3) Anxiety: Mild (1-3) (anxious to get on with therapy; discussing goal of defining "new normal") Dyspnea: Mild (1-3) Anorexia: None Feelings of wellbeing/Perceived Quality of Life: Fair, Improved - Palliative Care Discussion: Patient's current understanding of her illness, she has had a severe stroke. She has in the past perceives she has improved from previous stroke. She also comes from a place of her mother's experience, who had a stroke similar. She is hopeful that she will continue to improve, she is quite invested in getting better, she is hoping that she can be independent again. She reports her normal coping, is to "stick her head in the sand". She does understand there has been much conversation regarding recommendation of a PEG, concern for her swallowing ability, she does understand she is at risk for pneumonia. She is hoping to be able to continue improve, as she does enjoy food very much as a quality of life issue. We did discuss in the context of advanced care planning, if she were unable to make decisions for herself who would she want to designate. She has not done any advanced care planning, she reports her son Alpesh Chambers [phone] would be who she would want as her first decision maker. She feels like he would be a good advocate, and be able to understand the information. I asked permission if I could confirm that this was okay with Alpesh, she does have 2 sons, at this point it would default to both to be able to come in agreement. We did discuss in the context of POLST, the first decision about CPR/DNAR. She reports if she were to have a end-of-life event, she would want her family "to let her go". She does find comfort in her marisela, she is a Jehovah witness, and perceives herself as being comforted by the fact she will be resurrected. She has made decisions regarding end-of-life care, she does want to be cremated when she dies. We discussed her goals, her present goal is to focus on quality of life issues, she would like to return back to some level of independence, she would like to return home recognizing she may need support, and if she were to have an end-of-life event or be a end of life she would like to be at home for her last days. She does recognize so she is to be difficult for her sons, she is hoping that there would be support. We revisited at this point the PEG to conversation, she does perceive eating as a quality of life issue, but given her goals to improve and return home, would be willing to consider this again in the context of benefits and burdens, particularly if she were to worsen or have recurrent pneumonias. At this point in time she would also want to be treated with antibiotics, but would not want any "heroic measures" and confirm she would not want to be put on a ventilator. Conversation also done and anticipatory guidance, for a "new normal". She does understand she is almost 84, and has had a major life changing event. She is hoping to return home, understanding she may need assistance, and would be okay with that. Does express some feelings of grief and loss regarding most likely not able to drive again. Did speak with son Alpesh Chambers, he did confirm willingness to be the D POA, did report would be finishing a form related to this. We did discuss in the context of his mother's goals, that we completed a POLST. Her goals currently are to focus on improving and regaining some independence. We did review she has significant fatigue, that not going to an intensive rehab facility, most likely this is the best outcome. He does have concerns about after her rehab stay, patient does have limited income, will have secondary social studies teacher give him a [place] PES packet to start the process, also discussed the role of transitioning home if needed more therapy could continue with home health PT. Reviewed the role of palliative care, and given contact numbers as well as left information sheet in room. The understanding currently, waiting on follow up ST update evaluation, and to hear back from SNF's for placement with her insurance. He requests she be placed in [facility] to be able to have continued family support. Results - Lab Results Lab results reviewed: Yes Fish Bones: 12/03/18 05:40 12/03/18 05:40 Lab and Imaging Results: Lab Results x24hrs 12/03/18 12/03/18 12/03/18 Range/Units 16:37 11:02 07:41 WBC (4.8-10.8) x10^3/uL RBC (4.20-5.40) 10^6/uL Hgb (12.0-16.0) g/dL Hct (37.0-47.0) % MCV (81.0-99.0) fL MCH (27.0-31.0) pg MCHC (32.0-36.0) g/dL RDW (12.0-15.0) % Plt Count (130-450) 10^3/uL MPV (7.9-10.8) fL Neut # (Auto) (1.5-6.6) 10^3/uL Lymph # (Auto) (1.5-3.5) 10^3/uL Windsor # (Auto) (0.0-1.0) 10^3/uL Eos # (Auto) (0.0-0.7) 10^3/uL Baso # (Auto) (0.0-0.1) 10^3/uL Absolute Nucleated RBC x10^3/uL Nucleated RBC % /100WBC PT 12.9 H (9.9-12.6) secs INR 1.2 (0.8-1.2) Sodium (135-145) mmol/L Potassium (3.5-5.0) mmol/L Chloride (101-111) mmol/L Carbon Dioxide (21-32) mmol/L Anion Gap (6-13) BUN (6-20) mg/dL Creatinine (0.4-1.0) mg/dL Estimated GFR (MDRD) (>89) Glucose (70-100) mg/dL POC Whole Bld Glucose 290 H 324 H (70 - 100) mg/dL Calcium (8.5-10.3) mg/dL Phosphorus (2.5-4.6) mg/dL Albumin (3.2-5.5) g/dL 12/03/18 12/03/18 12/03/18 Range/Units 07:16 05:40 05:40 WBC 7.6 (4.8-10.8) x10^3/uL RBC 5.28 (4.20-5.40) 10^6/uL Hgb 15.3 (12.0-16.0) g/dL Hct 45.7 (37.0-47.0) % MCV 86.5 (81.0-99.0) fL MCH 29.0 (27.0-31.0) pg MCHC 33.6 (32.0-36.0) g/dL RDW 14.0 (12.0-15.0) % Plt Count 213 (130-450) 10^3/uL MPV 8.2 (7.9-10.8) fL Neut # (Auto) 4.7 (1.5-6.6) 10^3/uL Lymph # (Auto) 1.7 (1.5-3.5) 10^3/uL Windsor # (Auto) 0.8 (0.0-1.0) 10^3/uL Eos # (Auto) 0.3 (0.0-0.7) 10^3/uL Baso # (Auto) 0.1 (0.0-0.1) 10^3/uL Absolute Nucleated RBC 0.01 x10^3/uL Nucleated RBC % 0.1 /100WBC PT (9.9-12.6) secs INR (0.8-1.2) Sodium 137 (135-145) mmol/L Potassium 3.4 L (3.5-5.0) mmol/L Chloride 103 (101-111) mmol/L Carbon Dioxide 24 (21-32) mmol/L Anion Gap 10.0 (6-13) BUN 9 (6-20) mg/dL Creatinine 0.5 (0.4-1.0) mg/dL Estimated GFR (MDRD) 118 (>89) Glucose 142 H (70-100) mg/dL POC Whole Bld Glucose 149 H (70 - 100) mg/dL Calcium 8.9 (8.5-10.3) mg/dL Phosphorus 3.8 (2.5-4.6) mg/dL Albumin 3.5 (3.2-5.5) g/dL 12/02/18 Range/Units 20:43 WBC (4.8-10.8) x10^3/uL RBC (4.20-5.40) 10^6/uL Hgb (12.0-16.0) g/dL Hct (37.0-47.0) % MCV (81.0-99.0) fL MCH (27.0-31.0) pg MCHC (32.0-36.0) g/dL RDW (12.0-15.0) % Plt Count (130-450) 10^3/uL MPV (7.9-10.8) fL Neut # (Auto) (1.5-6.6) 10^3/uL Lymph # (Auto) (1.5-3.5) 10^3/uL [place] # (Auto) (0.0-1.0) 10^3/uL Eos # (Auto) (0.0-0.7) 10^3/uL Baso # (Auto) (0.0-0.1) 10^3/uL Absolute Nucleated RBC x10^3/uL Nucleated RBC % /100WBC PT (9.9-12.6) secs INR (0.8-1.2) Sodium (135-145) mmol/L Potassium (3.5-5.0) mmol/L Chloride (101-111) mmol/L Carbon Dioxide (21-32) mmol/L Anion Gap (6-13) BUN (6-20) mg/dL Creatinine (0.4-1.0) mg/dL Estimated GFR (MDRD) (>89) Glucose (70-100) mg/dL POC Whole Bld Glucose 400 H (70 - 100) mg/dL Calcium (8.5-10.3) mg/dL Phosphorus (2.5-4.6) mg/dL Albumin (3.2-5.5) g/dL Impression and Recommendations - Palliative Care Impression: This is an 83-year-old woman who presented with a severe stroke, with Wallenberg syndrome. Her original dysphagia, has improved, but remains at high risk for aspiration. Patient's goals include improving independence, follow-up with rehab, and return home. Palliative care meeting with patient to define goals of care and complete advanced care planning. Recommendations/Counseling Done: 1. Acute Stroke/Wallenberg's Syndrome. Patient has a basic understanding of the seriousness of her illness, she is perceiving her experience in the context of caring for her mother with acute stroke, plus previous experience herself. Julio lebron's goals are to continue on to SNF for rehab purposes. Patient does report fatigue, but also expresses willingness to participate in program. Patient does have dysphagia as a result of her stroke, has had some improvement. Patient has been progressed on pured diet and honey thick liquids, is able to verbalize aspiration precautions. Does understand risk for For pneumonia, at this point in time the benefits outweigh the burdens in the context of continuing oral feedings. Patient would be willing to revisit the question in the context of tube feedings in the future depending on her condition. Patient would not find increased dependence is acceptable quality of life. She is hoping for ongoing improvement, anticipatory guidance provided regarding "new normal", and need to reevaluate on discharge from SNF care needs and safe plan 2.Advanced care planning. Patient has not anticipated or completed any advanced care planning documents. Discussion regarding health proxy, has chosen Alpesh Chambers her son, have completed the paperwork, awaiting notary for final signature. Counseling provided regarding [facility], in the context of goals of care, education given on DNA R/selective treatments, this was completed, reviewed in detail, patient given signed copy as well has copies for her record. Will submit to H . Hospitalist was notified and provided copy of document as well. Palliative care information left for son, had made phone contact with him, encouraged to contact me with any questions. Time Spent: 70 minutes with greater than 50% of this done in counseling regarding goals of care, anticipatory guidance, coordination of care with hospitalist and secondary social studies teacher, and follow-up with son.
[2018-12-03] MEDS: hydrALAZINE INJ 20 MG/ML VIAL IVP PRN (21:24)
[2018-12-04] MEDS: SODIUM CHLORIDE FLUSH 0.9% 10 ML SYRINGE IVP SCH ×2 (00:18→09:41)
[2018-12-04 05:38] LABS: BASOPHILS # (AUTO) 0.1 10^3/uL (0.0-0.1); BASOPHILS % (AUTO) 0.4 %; EOSINOPHILS % (AUTO) 0.2 %; LYMPHOCYTES # (AUTO) 0.8 10^3/uL (1.5-3.5); MEAN CORPUSCULAR HEMOGLOBIN 28.5 pg (27.0-31.0); MEAN CORPUSCULAR HGB CONC 33.2 g/dL (32.0-36.0); MEAN PLATELET VOLUME 8.5 fL (7.9-10.8); MONOCYTES % (AUTO) 6.6 %; NEUTROPHILS # (AUTO) 13.3 10^3/uL (1.5-6.6); NEUTROPHILS % (AUTO) 87.8 %; PLT - PLATELET COUNT 206 10^3/uL (130-450); RED BLOOD COUNT 5.25 10^6/uL (4.20-5.40); RED CELL DISTRIBUTION WIDTH 14.3 % (12.0-15.0); WHITE BLOOD COUNT 15.2 x10^3/uL (4.8-10.8)
[2018-12-04 05:49] LABS: ALBUMIN 3.3 g/dL (3.2-5.5); CALCIUM 9.1 mg/dL (8.5-10.3); CREATININE 0.7 mg/dL (0.4-1.0); PHOSPHORUS 3.1 mg/dL (2.5-4.6)
[2018-12-04 07:28] VITALS: BP 155/77
--- NOTE | 2018-12-04 08:39 | Discharge Plan ---
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 Stable (9) Barrington syndrome; Stable Medicare Certification Statement: I certify that Post Hospital snf care is medically necessary on a continuing basis for any of the conditions for which she/he is receiving care during hospitalization. Notify PCP of admission and forward orders to primary provider for signature. Weight on admission and: Weekly Call PCP immediately if weight increases by: 2 kg Other Notification Orders: Call PCP immediately if patient develops dyspnea, chest pain/tightness or edema. House Bowel Program: Yes Additional Bowel Program Orders: If no BM after 2 days, nurse may give M.O.M. 30ml PO PRN and/or ducolax Supp 1 NH and/or LESVIA 250mg P.O., and/or senna 1-2 tabs PO. On day 3 nurse may give repeat above order until residents constipation is resolved. Annual Influenza Vaccine (between May 02 and November 29): Yes Two-step PPD per [facility] [phone] or approved exception documents: No Lab Tests or X-ray Orders: Chest x-ray one view on 12/08 Medication Orders: PLEASE REFER TO THE DISCHARGE MEDICATION LIST. If Yes, Add SNF - Insulin Orders Section (see tipsheet): Diagnosis: Diabetes Initiate hypo and hyperglycemia protocols for BG <70 and BG >375. May check BG PRN for signs/symptoms of dysglycemia. Frequency of BG checks: [AC/Meal/HS] Basal Insulin: [x] Lantus 100 units / ml inject subq as follows: [15 units subcu twice daily] [x] Other: [Actos 15 units crushed p.o. twice daily with meals] Correction Insulin: - Select the type of insulin below [Choose: Novolog/Humalog]100 units /ml insulin inject subq per orders indicate below [] LOW DOSE [] MODERATE DOSE [] MODERATE/HIGH DOSE [x] HIGH DOSE GB UNITS GB UNITS GB UNITS GB UNITS 61-140 0 UNITS 61-140 0 UNITS 61-140 0 UNITS 61-140 0 UNITS 141-175 1 UNITS 141-175 1 UNITS 141-175 2 UNITS 141-175 3 UNITS 176-225 2 UNITS 176-225 3 UNITS 176-225 4 UNITS 176-225 5 UNITS 226-275 3 UNITS 226-275 5 UNITS 226-275 6 UNITS 226-275 7 UNITS 276-325 4 UNITS 276-325 7 UNITS 276-325 8 UNITS 276-325 9 UNITS 326-375 5 UNITS 326-375 9 UNITS 326-375 10 UNITS 326-375 11 UNITS >375 CONTACT MD >375 CONTACT MD >375 CONTACT MD >375 CONTACT MD Custom Dosing: [Choose: Novolog/Humalog] 100 units/ml Insulin inject subq as follows: GB Units 61-140 [] Units 141-175 [] Units 176-225 [] Units 226-275 [] Units 276-325 []Units 326-375 [] Units >375 Contact MD - Medications New Prescriptions: Clonazepam 0.25 mg PO Q4HR PRN #60 tab.rapdis PRN Reason: Anxiety Clonidine HCl [Catapres] 0.2 mg PO Q4HR PRN #60 tablet PRN Reason: SBP>190 or DBP>110 - Diet Type: No added salt Texture: Puree Liquids: Honey thick May have monthly special meal: No - Therapies | Activity Therapy: Evaluation | Treat if indicated: Speech, PT, OT, Swallowing / ST Rehabilitation Potential: Maximize functional status, Return to independent living, Maintain present ADL Functional Activity: Activity as Tolerated Weight Bearing: Full Weight Assistance Devices: Walker Additional Instructions: Diagnosis: Diabetes Initiate hypo and hyperglycemia protocols for BG <70 and BG >375. May check BG PRN for signs/symptoms of dysglycemia. Frequency of BG checks: [AC/Meal/HS] Basal Insulin: [X] Lantus 100 units / ml inject subq as follows: [15 units subcu twice daily] [X] Other: [Actos 15 mg crushed p.o. twice daily] Correction Insulin: - Select the type of insulin below [Choose: Novolog/Humalog]100 units /ml insulin inject subq per orders indicate below [] LOW DOSE [] MODERATE DOSE [] MODERATE/HIGH DOSE [X] HIGH DOSE GB UNITS GB UNITS GB UNITS GB UNITS 61-140 0 UNITS 61-140 0 UNITS 61-140 0 UNITS 61-140 0 UNITS 141-175 1 UNITS 141-175 1 UNITS 141-175 2 UNITS 141-175 3 UNITS 176-225 2 UNITS 176-225 3 UNITS 176-225 4 UNITS 176-225 5 UNITS 226-275 3 UNITS 226-275 5 UNITS 226-275 6 UNITS 226-275 7 UNITS 276-325 4 UNITS 276-325 7 UNITS 276-325 8 UNITS 276-325 9 UNITS 326-375 5 UNITS 326-375 9 UNITS 326-375 10 UNITS 326-375 11 UNITS >375 CONTACT MD >375 CONTACT MD >375 CONTACT MD >375 CONTACT MD Custom Dosing: [Choose: Novolog/Humalog] 100 units/ml Insulin inject subq as follows: GB Units 61-140 [] Units 141-175 [] Units 176-225 [] Units 226-275 [] Units 276-325 []Units 326-375 [] Units >375 Contact MD Follow Up: PCP to follow-up in 1 or 2 weeks"
--- NOTE | 2018-12-04 08:58 | DISCHARGE SUMMARY ---
Discharge Summary Admit Date: 11/24/18 Discharge Date: 12/04/18 Discharging Provider: Dr. 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 At the moment the patient is sound asleep after receiving ativan and haldol in the ED, thus is unable to provide history. His son reports that for the past twelve hours the patient has been deviating to the left-side when she walks. She also complained of a burning headache yesterday. It resolved but then returned today. She was also experiencing numbness and tingling in her hands. On presentation she complained of dizziness and nausea. She was found to have a SBP of 220 in the ED. As a result of her p resentation, she is being admitted for further work up. - HOSPITAL COURSE Hospital Course: This is a 83-year-old white female with poorly controlled hypertension, Insulin requiring type 2 diabetes mellitus, obesity presents with TIA symptoms. 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 Patient also had decreased sensory numbness to the left hand along with decreased temperature proprioception. Patient had right hip pain on ambulation with wide-based gait disturbance balance and coordination issues. 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 Throughout hospitalization patient displayed labile hypertensive excursions for which permissive bleed BP rises were allowed and treated for systolic blood pressure above 190 with IV hydralazine with parameters. Patient's metoprolol was held due to this reason to avoid watershed infarcts. At one point patient's systolic blood pressure had gone down as low as 140s and she began complaining of bitemporal headaches which was alleviated with crushed aspirin plus or minus Flexeril. Patient also initially was placed on aspirin per rectum and this was subsequently transitioned over to crushed medication. Patient was initially evaluated right speech pathology and was deemed to have oral pharyngeal dysp hasia inSync with Wallenberg syndrome with paralysis of some oropharyngeal muscles that would otherwise provoke silent over overt aspiration. Patient was instructed to become n.p.o. and PEG tube was recommended by ST however patient did not comply with these recommendations and was subsequently placed on a quality of life diet with dysphagia pured honey thickened diet for which silent aspiration was seen by ST as well as a failed M BSS on 11/27/18. Patient however being on quality of life diet accepted the risks and complications to include aspiration pneumonitis/pneumonia with acute respiratory failure. Patient did not display any further silent aspiration from the initial evaluation and subsequent thereafter by ST. Patient had difficult to control sugars and was titrated to 15 units subcu twice daily of Lantus along with high-dose insulin sliding scale correctional for bolus coverage. In addition patient was placed on Actos 15 mg crushed p.o. twice daily with meals. Physical therapy worked with patient on gait balance and range of motion as well as strengthening. Right hip pain was an issue for which Lidoderm patch was applied along with Flexeril crushed 3 times daily as needed. She displayed hypokalemia likely secondary to nutritional deficiency and absorption and this was addressed with K elixir 40 mEq p.o. daily. Patient was unfortunately denied at [facility] at [place] due to medical noncompliance however was accepted at [facility] and will continue with continued physical therapy speech therapy and occupational therapy as deemed necessary for full recovery of her left lateral medullary infarct. PCP to follow-up in 1-2 weeks. - ALLERGIES Allergies/Adverse Reactions: Allergies Allergy/AdvReac Type Severity Reaction Status Date / Time No Known Drug Allergies Allergy Verified 11/24/18 19:54 - MEDICATIONS Home Medications: Ambulatory Orders Medication Instructions Recorded Confirmed Cholecalciferol (Vitamin D3) 1,000 unit PO DAILY 11/25/18 11/25/18 [Vitamin D3] Multivitamin [Multiple Vitamins] 1 each PO DAILY 11/25/18 11/25/18 Acetaminophen [Tylenol] 650 mg NV Q6HR PRN tablet 12/04/18 Aspirin EC [Ecotrin] 325 mg PO DAILY tablet 12/04/18 Clonazepam 0.25 mg PO Q4HR PRN #60 tab.rapdis 12/04/18 Clonidine HCl [Catapres] 0.2 mg PO Q4HR PRN #60 tablet 12/04/18 Cyclobenzaprine [Flexeril] 5 mg PO TID PRN tablet 12/04/18 Insulin Aspart [NovoLOG] 3 - 11 unit SUBQ 12/04/18 0800,1200,1700,2100 pen Insulin Glargine [Lantus Solostar] 15 unit SUBQ BID pen 12/04/18 Lidocaine Patch 5% [Lidoderm Patch] 1 patch TOP DAILY PRN patch 12/04/18 Pioglitazone [Actos] 15 mg PO BIDWM tablet 12/04/18 Potassium Chloride [Micro-K] 40 meq PO DAILYWM capsule 12/04/18 Sertraline [Zoloft] 12.5 mg PO DAILY tablet 12/04/18 - PHYSICAL EXAM AT DISCHARGE General Appearance: positive: No acute distress, Alert Eyes Bilateral: positive: Normal inspection, No lid inflammation, Conjunctivae nml, No scleral icterus, Other (Left ptosis with improved pupillary reflex to the ipsilateral affected side.) ENT: positive: ENT inspection nml, Pharynx nml, No signs of dehydration Neck: positive: Nml inspection, Thyroid nml, No JVD, Trachea midline. negative: Thyromegaly Respiratory: positive: Chest non-tender, No respiratory distress, Breath sounds nml Cardiovascular: positive: Regular rate & rhythm, No murmur, No gallop Peripheral Pulses: positive: 2+ Abdomen: positive: Non-tender, No organomegaly, Nml bowel sounds, No distention Skin: positive: Color nml, No rash. negative: Skin rash Extremities: positive: Non-tender, Nml appearance, No pedal edema Neurologic/Psychiatric: positive: Oriented x3, Mood/affect nml, Weakness (Left upper extremity and lower extremity hemiparesis improved), Sensory loss (Left hand numbness), Facial droop (Improved left sided ptosis) Babinski Reflex: Right: Absent, Left: Absent - LABS Result Diagrams: 12/04/18 05:21 12/04/18 05:21 - DIAGNOSTIC IMAGING Diagnostic Imaging Results: Final report reviewed - SEPSIS Current Stage of Sepsis: Ruled out - QUALITY (Female Hip Fx Only) Was patient sent home on osteoporosis medication?: No - FOLLOW UP Follow Up: PCP to follow-up in 1 or 2 weeks - TIME SPENT Time Spent in Discharge (Minutes): 35
[2018-12-04] MEDS: INSULIN ASPART 300 UNIT/3 ML PEN SUBQ SCH ×2 (09:38→12:10)
[2018-12-04] MEDS: INSULIN GLARGINE 300 UNIT/3 ML PEN SUBQ SCH (09:39)
[2018-12-04] MEDS: SERTRALINE 25 MG TABLET PO SCH (09:40)
[2018-12-04] MEDS: ASPIRIN EC 325 MG TABLET PO SCH (09:40)
[2018-12-04] MEDS: POTASSIUM CHLORIDE 10 MEQ CAPSULE PO SCH (09:40)
[2018-12-04] MEDS: PIOGLITAZONE 15 MG TABLET PO SCH (09:47)
--- NOTE | 2018-12-07 08:25 | XRAY Report ---
Reason: Dense stroke, eval swallowing ability Procedure Date: 11/27/2018 Accession Number: [id number] / [id number] Procedure: FL - Modified Barium Swallow W/SP CPT Code: FULL RESULT: EXAM: MODIFIED BARIUM SWALLOW EXAM DATE: 11/27/2018 12:17 PM. CLINICAL HISTORY: Dense stroke, evaluate swallowing ability. COMPARISON: None. TECHNIQUE: Under the direction of speech pathology, patient swallowed various consistencies of barium under lateral fluoroscopic observation of the neck. Fluoroscopy Time: 50 seconds. Number of Images: 46. FINDINGS: Swallowing Mechanism: The oral phase is delayed and no effective swallowing reflex is seen. Airway Protection: Normal epiglottic motion. No episodes of tracheal penetration or aspiration with all consistencies of barium. Pharynx: Normal. No significant vallecular or piriform sinus contrast pooling. Other: None. IMPRESSION: Ineffective swallowing. RADIA
== END 2018-12-04 12:11 | DRG 65 ==
LOC: ED 19:48 → OBS 23:37 → OBSVTOIN 11-25 12:56 → MS2 11-25 15:56
PROVIDERS: ADMIT Internal Medicine; ATTEND Family Medicine
DX: G45.9 Transient cerebral ischemic attack, unspecified (principal); I63.9 Cerebral infarction, unspecified; G81.90 Hemiplegia, unspecified affecting unspecified side; E11.9 Type 2 diabetes mellitus without complications; R29.700 NIHSS score 0; R13.12 Dysphagia, oropharyngeal phase; R26.0 Ataxic gait; G46.3 Brain stem stroke syndrome; T17.920A Food in respiratory tract, part unspecified causing asphyxiation, initial encounter; G90.2 Horner's syndrome; I16.0 Hypertensive urgency; I10 Essential (primary) hypertension; Z66 Do not resuscitate; E11.65 Type 2 diabetes mellitus with hyperglycemia; E87.6 Hypokalemia; E66.9 Obesity, unspecified; Z79.82 Long term (current) use of aspirin; Z79.4 Long term (current) use of insulin; Z86.73 Personal history of transient ischemic attack (TIA), and cerebral infarction without residual deficits; H54.7 Unspecified visual loss; F32.9 Major depressive disorder, single episode, unspecified; Z91.19 Patient's noncompliance with other medical treatment and regimen; M54.30 Sciatica, unspecified side; R51 Headache; Z68.36 Body mass index [BMI] 36.0-36.9, adult
CPT/HCPCS: 36415; 70450; 70496; 70498; 70551; 74230; 80048; 80053; 80061; 80069; 81001; 83036; 83690; 83735; 84439; 84443; 84484; 85025; 85610; 85651; 85730; 86141; 92526; 92610; 92611; 93005; 93306; 93880; 96365; 96375; 96376; 97110; 97116; 97161; 97166; 97530; 99223; 99284; A9270; G0378; J0131; J1815; J2060; J3411; J7040; J8499; Q9967; 81003; 83721; 87086

== ENCOUNTER 2019-04-21 05:00 | Outpatient (CLI) | payer MEDICARE | END 2019-04-21 05:01 | disposition critical access hospital (66) | LOC: EMS 05:00 | PROVIDERS: ATTEND Surgery | DX: R05 Cough (principal); R06.00 Dyspnea, unspecified | CPT/HCPCS: A0425; A0427 ==

== ENCOUNTER 2019-04-21 05:32 | Emergency (ER) | payer MEDICARE ==
--- NOTE | 2019-04-21 06:24 | XRAY Report ---
Reason: cough Procedure Date: 04/21/2019 Accession Number: [id number] / [id number] Procedure: XR - Chest 2 View X-Ray CPT Code: 11867 FULL RESULT: EXAM: CHEST RADIOGRAPHY EXAM DATE: 04/21/2019 06:09 AM CLINICAL HISTORY: Cough. COMPARISON: XR CHEST PA AND LAT 05/29/2011 5:47 PM. TECHNIQUE: 2 views. FINDINGS: Lungs/Pleura: No focal opacities evident. No pleural effusion. No pneumothorax. Normal volumes. Mediastinum: Heart and mediastinal contours are unremarkable. Other: Right hemidiaphragm eventration is noted. There is severe bilateral shoulder degenerative change. IMPRESSION: No acute cardiopulmonary abnormality demonstrated. RADIA
[2019-04-21] MEDS ORDERED: FUROSEMIDE 40 MG/4 ML VIAL IVP STA (06:29)
[2019-04-21 06:37] LABS: BASOPHILS # (AUTO) 0.1 10^3/uL (0.0-0.1); BASOPHILS % (AUTO) 0.4 %; EOSINOPHILS # (AUTO) 0.1 10^3/uL (0.0-0.7); EOSINOPHILS % (AUTO) 0.6 %; HGB - HEMOGLOBIN 14.3 g/dL (12.0-16.0); LYMPHOCYTES # (AUTO) 1.8 10^3/uL (1.5-3.5); LYMPHOCYTES % (AUTO) 12.8 %; MEAN CORPUSCULAR HEMOGLOBIN 29.4 pg (27.0-31.0); MEAN CORPUSCULAR HGB CONC 32.9 g/dL (32.0-36.0); MEAN CORPUSCULAR VOLUME 89.1 fL (81.0-99.0); MEAN PLATELET VOLUME 10.9 fL (7.9-10.8); MONOCYTES % (AUTO) 6.8 %; NEUTROPHILS # (AUTO) 11.1 10^3/uL (1.5-6.6); NEUTROPHILS % (AUTO) 78.9 %; PLT - PLATELET COUNT 180 10^3/uL (130-450); RED BLOOD COUNT 4.87 10^6/uL (4.20-5.40); WHITE BLOOD COUNT 14.1 x10^3/uL (4.8-10.8)
[2019-04-21 06:50] LABS: CALCIUM 9.3 mg/dL (8.5-10.3)
[2019-04-21] MEDS ORDERED: IPRATROPIUM/ALBUTEROL 3 ML NEB INH STA (06:54)
--- NOTE | 2019-04-21 06:56 | ED Physician Documentation ---
PD HPI DYSPNEA - Stated complaint Stated Complaint: SOA, WHEEZING, BLE EDEMA - Chief complaint Chief Complaint: Resp - History obtained from History obtained from: Patient, Family - History of Present Illness Timing - onset: How many weeks ago (1) Timing - onset during: Other (while asleep) Timing - duration: Weeks (1) Timing - details: Abrupt onset, Waxing and waning, Other (wakes from sleep and has to go to the window for air) Severity Comments: moderate, now mild in the ED Inciting event(s): Other (unknown) Improved by: Sitting up, Other (going to the window for air) Worsened by: Laying flat, Coughing Associated symptoms: Cough, Bilateral edema. No: Fever, Hemoptysis, Wheezing, Chest pain / discomfort, Palpitations, Diaphoresis, Unilateral edema, Anxiety Similar symptoms before: Has not had sx before Recently seen: Not recently seen - Treatment prior to arrival Treatment prior to arrival: none Review of Systems Ten Systems: 10 systems reviewed and negative Constitutional: denies: Fever, Chills Nose: reports: Reviewed and negative Throat: reports: Reviewed and negative Cardiac: reports: Pedal edema. denies: Chest pain / pressure, Palpitations Respiratory: reports: Dyspnea, Cough. denies: Hemoptysis, Wheezing GI: denies: Abdominal Pain, Nausea, Vomiting, Diarrhea Skin: reports: Reviewed and negative Musculoskeletal: reports: Extremity swelling (bilateral) Neurologic: reports: Reviewed and negative Immunocompromised: reports: Other (diabetic) PD PAST MEDICAL HISTORY - Past Medical History Past Medical History: Yes Cardiovascular: Hypertension Neuro: CVA, TIA, Headaches Endocrine/Autoimmune: Type 2 diabetes HEENT: Chronic vision loss Psych: Depression Musculoskeletal: Fatigue Derm: Other - Past Surgical History Past Surgical History: No - Present Medications Home Medications: Ambulatory Orders Medication Instructions Recorded Confirmed Insulin Aspart [NovoLOG] 3 - 11 unit SUBQ 12/04/18 04/21/19 0800,1200,1700,2100 pen Pioglitazone [Actos] 15 mg PO BIDWM tablet 12/04/18 04/21/19 Insulin Glargine [Lantus Solostar] 10 unit SUBQ BID 04/21/19 04/21/19 amLODIPine [Norvasc] 5 mg PO DAILY 04/21/19 04/21/19 - Allergies Allergies/Adverse Reactions: Allergies Allergy/AdvReac Type Severity Reaction Status Date / Time No Known Drug Allergies Allergy Verified 04/21/19 05:42 - Social History Does the pt smoke?: No Smoking Status: Never smoker Does the pt drink ETOH?: No Does the pt have substance abuse?: No - Immunizations Immunizations are current?: No - POLST Patient has POLST: Yes PD ED PE NORMAL - Vitals Vital signs reviewed: Yes - General General: Alert and oriented X 3, No acute distress, Well developed/nourished - HEENT HEENT: Atraumatic, Pharynx benign - Neck Neck: Supple, no meningeal sign, No JVD - Cardiac Cardiac: RRR, No murmur, No gallop, No rub - Respiratory Respiratory: No respiratory distress, Other (mild inspiratory and expiratory wheezing ) - Abdomen Abdomen: Soft, Non tender, Non distended - Female Female : Deferred - Rectal Rectal: Deferred - Derm Derm: Normal color, Warm and dry, No rash - Extremities Extremities: Other (bilateral 1+ LE edema ) - Neuro Neuro: Alert and oriented X 3 Eye Opening: Spontaneous Motor: Obeys Commands Verbal: Oriented GCS Score: 15 - Psych Psych: Normal mood, Normal affect PD ED PE EXPANDED - Neck Neck: No: JVD present - Cardiac Cardiac: Regular Rate, Regular Rhythm, Normal pulses. No: Murmur Present - Respiratory Respiratory: No: Distress, Labored, Stridor, Accessory mm use, Retractions, Wheezing, Rhonchi, Rales, Decreased breath sounds Results - Vitals Vitals: Vital Signs - 24 hr 04/21/19 04/21/19 05:33 06:29 Temperature 36.2 C L Heart Rate 94 106 H Respiratory 21 24 Rate Blood Pressure 172/80 H 148/65 H O2 Saturation 96 94 Oxygen O2 Source Room air - EKG (time done) 5:37 Rate: Rate (enter#) (96) Rhythm: NSR, Other (occasional pvcs) [place]: Normal Intervals: Normal NH QRS: Normal Ischemia: T wave inversion (in lateral leads which is new ) Computer interpretation: Agree with computer - Labs Labs: Laboratory Tests 04/21/19 04/21/19 04/21/19 06:30 06:30 06:30 WBC 14.1 H RBC 4.87 Hgb 14.3 Hct 43.4 MCV 89.1 MCH 29.4 MCHC 32.9 RDW 14.0 Plt Count 180 MPV 10.9 H Neut # (Auto) 11.1 H Lymph # (Auto) 1.8 [place] # (Auto) 1.0 Eos # (Auto) 0.1 Baso # (Auto) 0.1 Absolute Nucleated RBC 0.00 Nucleated RBC % 0.0 Sodium 134 L Potassium 3.8 Chloride 97 L Carbon Dioxide 21 Anion Gap 16.0 H BUN 19 Creatinine 1.0 Estimated GFR (MDRD) 53 L Glucose 426 H Calcium 9.3 Troponin I High Sens 8.9 B-Natriuretic Peptide 04/21/19 06:30 WBC RBC Hgb Hct MCV MCH MCHC RDW Plt Count MPV Neut # (Auto) Lymph # (Auto) [place] # (Auto) Eos # (Auto) Baso # (Auto) Absolute Nucleated RBC Nucleated RBC % Sodium Potassium Chloride Carbon Dioxide Anion Gap BUN Creatinine Estimated GFR (MDRD) Glucose Calcium Troponin I High Sens B-Natriuretic Peptide 36 - Rads (name of study) CXR Radiology: Final report received, See rad report (no acute disease ) PD MEDICAL DECISION MAKING - ED course Complexity details: reviewed results, re-evaluated patient, considered mina lopez, d/w patient, d/w family ED course: ddx- chf, pulmonary edema, HTN emergency, ACS, PE, pneumonia, sleep apnea 84 y/o F with 1 week of intermittent waking sob in the middle of the night with PND. No hx of this in the past. Bilateral LE edema on exam, given 40mg of IV lasix by EMS prior to arrival. No fever. CXR largely unremarkable. EKG shows new t wave inversion in V5 compared to October EKG. Pt has slight wheeze on exam thus will trial duoneb while labs are pending. Labs wnl, neg high sensitivity troponin and neg BNP. Suspect this may be due to mild bronchitis, but will repeat ekg and troponin at 3 hours. Dispo pending repeat eval.
[2019-04-21] MEDS ORDERED: DEXAMETHASONE 10 MG/ML VIAL IVP STA (07:37)
[2019-04-21] MEDS ORDERED: cefTRIAXone 1 GM in SODIUM CHLORIDE 0.9% MINIBAG 100 ML IV STA (08:43)
--- NOTE | 2019-04-21 09:06 | ED Physician Documentation ---
PD HPI DYSPNEA - Stated complaint Stated Complaint: SOA, WHEEZING, BLE EDEMA - Chief complaint Chief Complaint: Resp - History obtained from History obtained from: Patient, Family - History of Present Illness Timing - onset: How many days ago (3) Timing - onset during: Rest Timing - duration: Days (3) Timing - details: Gradual onset, Still present Inciting event(s): URI Improved by: Rest, Sitting up Worsened by: Coughing Associated symptoms: Cough, Wheezing, Anxiety Similar symptoms before: Diagnosis (bronchitis) Recently seen: Not recently seen - Additional information Additional information: 84 y/o female with a recent CVA has had problems all her life with sinus and ear infection and has chronic cough. She has developed increased cough and now has soa as well. She feels she is having trouble clearing her phlem and she has had sinus headache. PD PAST MEDICAL HISTORY - Past Medical History Past Medical History: Yes Cardiovascular: Hypertension Neuro: CVA, TIA, Headaches Endocrine/Autoimmune: Type 2 diabetes HEENT: Chronic vision loss Psych: Depression Musculoskeletal: Fatigue Derm: Other - Past Surgical History Past Surgical History: No - Present Medications Home Medications: Ambulatory Orders Medication Instructions Recorded Confirmed Insulin Aspart [NovoLOG] 3 - 11 unit SUBQ 12/04/18 04/21/19 0800,1200,1700,2100 pen Pioglitazone [Actos] 15 mg PO BIDWM tablet 12/04/18 04/21/19 Albuterol Sulf [Ventolin Hfa 1 - 2 puffs INH Q4HR PRN #1 inhaler 04/21/19 Inhaler] Azithromycin [Zithromax] 250 mg PO DAILY #6 tablet 04/21/19 Insulin Glargine [Lantus Solostar] 10 unit SUBQ BID 04/21/19 04/21/19 amLODIPine [Norvasc] 5 mg PO DAILY 04/21/19 04/21/19 predniSONE [Deltasone] 10 mg PO ONCE #26 tablet 04/21/19 - Allergies Allergies/Adverse Reactions: Allergies Allergy/AdvReac Type Severity Reaction Status Date / Time No Known Drug Allergies Allergy Verified 04/21/19 05:42 - Social History Does the pt smoke?: No Smoking Status: Never smoker Does the pt drink ETOH?: No Does the pt have substance abuse?: No - Immunizations Immunizations are current?: No - POLST Patient has POLST: Yes PD ED PE NORMAL - Vitals Vital signs reviewed: Yes (hypertensive ) - General General: Alert and oriented X 3, No acute distress, Well developed/nourished - HEENT HEENT: Atraumatic, PERRL, EOMI, Other (cerumen is present bilaterally. It is removed to reveal erythema along the umbo and in the attic on the left and tympanosclerosis only on the right. ) - Neck Neck: Supple, no meningeal sign, No bony TTP - Cardiac Cardiac: RRR, No murmur - Respiratory Respiratory: No respiratory distress, Other (light transmitted upper airway sounds. ) - Back Back: No CVA TTP, No spinal TTP - Derm Derm: Normal color, No rash - Extremities Extremities: No deformity, No edema - Neuro Neuro: Alert and oriented X 3, brancher 2-12 intact, No motor deficit, No sensory deficit, Normal speech Eye Opening: Spontaneous Motor: Obeys Commands Verbal: Oriented GCS Score: 15 - Psych Psych: Normal mood, Normal affect Results - Vitals Vitals: Vital Signs - 24 hr 04/21/19 04/21/19 04/21/19 05:33 06:29 07:21 Temperature 36.2 C L Heart Rate 94 106 H 94 Respiratory 21 24 16 Rate Blood Pressure 172/80 H 148/65 H O2 Saturation 96 94 04/21/19 04/21/19 04/21/19 08:34 09:34 10:01 Temperature Heart Rate 93 95 96 Respiratory 30 H 12 21 Rate Blood Pressure 127/98 H 154/79 H 154/79 H O2 Saturation 93 92 96 Oxygen O2 Source Room air - EKG (time done) 0849 Rate: Rate (enter#) (95) Rhythm: NSR Ischemia: Q waves, Non specific changes Compare to prior EKG: Unchanged from prior EKG (SPT earlier today no sig changes) Computer interpretation: Agree with computer - Labs Labs: Laboratory Tests 04/21/19 04/21/19 04/21/19 06:30 06:30 06:30 WBC 14.1 H RBC 4.87 Hgb 14.3 Hct 43.4 MCV 89.1 MCH 29.4 MCHC 32.9 RDW 14.0 Plt Count 180 MPV 10.9 H Neut # (Auto) 11.1 H Lymph # (Auto) 1.8 [place] # (Auto) 1.0 Eos # (Auto) 0.1 Baso # (Auto) 0.1 Absolute Nucleated RBC 0.00 Nucleated RBC % 0.0 Sodium 134 L Potassium 3.8 Chloride 97 L Carbon Dioxide 21 Anion Gap 16.0 H BUN 19 Creatinine 1.0 Estimated GFR (MDRD) 53 L Glucose 426 H Calcium 9.3 Troponin I High Sens 8.9 B-Natriuretic Peptide 04/21/19 04/21/19 06:30 09:10 WBC RBC Hgb Hct MCV MCH MCHC RDW Plt Count MPV Neut # (Auto) Lymph # (Auto) [place] # (Auto) Eos # (Auto) Baso # (Auto) Absolute Nucleated RBC Nucleated RBC % Sodium Potassium Chloride Carbon Dioxide Anion Gap BUN Creatinine Estimated GFR (MDRD) Glucose Calcium Troponin I High Sens 7.3 B-Natriuretic Peptide 36 PD MEDICAL DECISION MAKING - ED course Complexity details: reviewed results, re-evaluated patient, considered differential, d/w patient, d/w family ED course: 84-year-old female with acute dyspnea has a cough and trouble clearing her phlegm and she appears to have some mucus plugging. She is given a dose of dexamethasone here and has some improvement. At shift change her care is turned over to me from Dr. Jaramillo and her concern was the possibility of a cardiac event causing the patient's undifferentiated dyspnea. A second letter cardiogram was obtained similar to the initial electric cardiogram and a second troponin is pending. Patient is administered Rocephin intravenously. Departure - Departure Disposition: 01 Home, Self Care Clinical Impression: Mucus plugging of bronchi Otitis media Qualifiers: Otitis media type: suppurative Chronicity: acute Laterality: left Recurrence: non-recurrent Spontaneous tympanic membrane rupture: without spontaneous rupture Qualified Code(s): H66.002 - Acute suppurative otitis media without spontaneous rupture of ear drum, left ear Condition: Stable Instructions: ED Reactive Airway Disease, ED Otitis Media Acute Adult Follow-Up: [facility] [Provider Group] Prescriptions: Albuterol Sulf [Ventolin Hfa Inhaler] 1 - 2 puffs INH Q4HR PRN #1 inhaler PRN Reason: Shortness Of Air/Wheezing Azithromycin [Zithromax] 250 mg PO DAILY #6 tablet predniSONE [Deltasone] 10 mg PO ONCE #26 tablet
[2019-04-21 12:54] VITALS: BP 155/75
== END 2019-04-21 12:53 | disposition home or self-care (01) ==
LOC: EDUNIT# → ED 05:32
DX: T17.590A Other foreign object in bronchus causing asphyxiation, initial encounter (principal); X58.XXXA Exposure to other specified factors, initial encounter; H66.002 Acute suppurative otitis media without spontaneous rupture of ear drum, left ear; H74.01 Tympanosclerosis, right ear; H61.23 Impacted cerumen, bilateral; I49.3 Ventricular premature depolarization; R94.31 Abnormal electrocardiogram [ECG] [EKG]; I10 Essential (primary) hypertension; E11.9 Type 2 diabetes mellitus without complications; Z79.4 Long term (current) use of insulin; Z86.73 Personal history of transient ischemic attack (TIA), and cerebral infarction without residual deficits
CPT/HCPCS: 36415; 71046; 80048; 83880; 84484; 85025; 93005; 94640; 96365; 96375; 99284

== ENCOUNTER 2022-11-03 02:38 | Outpatient (CLI) | payer MEDICARE | END 2022-11-03 23:59 | disposition critical access hospital (66) | LOC: EMS 02:38 | DX: R53.1 Weakness (principal); R11.0 Nausea; R29.6 Repeated falls | CPT/HCPCS: A0425; A0427 ==

== ENCOUNTER 2022-11-03 03:08 | Inpatient (IN) | payer MEDICARE ==
[2022-11-03] MEDS ORDERED: ONDANSETRON 4 MG/2 ML VIAL IVP STA (03:32)
[2022-11-03] MEDS ORDERED: ceFAZolin 2 GM/50 ML 2 GM/50 ML BAG IV STA (03:32)
[2022-11-03] MEDS ORDERED: SODIUM CHLORIDE 0.9% 1,000 ML IV STA ×2 (03:32→05:10)
[2022-11-03] MEDS ORDERED: VANCOMYCIN INJ 1.75 GM in SODIUM CHLORIDE 0.9% 500 ML IV STA (03:32)
[2022-11-03] MEDS ORDERED: MUPIROCIN 2% OINT 1 GM TOP STA (03:41)
--- NOTE | 2022-11-03 03:42 | ED Physician Documentation ---
PD HPI NVD - Stated complaint Stated Complaint: WEAKNESS, FALLS, BED SORE, LEFT ARM WOUND REDNESS - Chief complaint Chief Complaint: General - History obtained from History obtained from: Patient, EMS - History of Present Illness Timing - onset: How many days ago (The patient states 4 to 5 days of general malaise with decreased appetite and nausea. She has had a sore on her left arm that is draining and does have swelling and redness. She states she felt warm but did not take her temperature. She has had some mild cough. She denies head congestion.) Timing - duration: Days (4-5) Timing - details: Gradual onset, Still present Associated symptoms: Fever (possible fever with feeling warm/sweaty at times, but did not take temp.), Loss of appetite, Other (She has had tender red swollen areas on the left upper arm and then the upper and middle back. 2 of these are draining purulent material. These have been the last several days as well.). No: Abdominal pain, Near syncope / syncope Contributing factors: Diabetes, Other (She has a wound on her left arm that started as a's skin tear from falling. It is red swollen and draining.). No: Sick contact, Bad food Similar symptoms before: Has not had sx before Review of Systems Constitutional: reports: Chills, Myalgias, Fatigue. denies: Fever Nose: reports: Congestion. denies: Rhinorrhea / runny nose Throat: denies: Sore throat Respiratory: reports: Cough (mild) GI: reports: Nausea, Vomiting. denies: Diarrhea Skin: reports: Lesions Neurologic: reports: Generalized weakness. denies: Focal weakness, Numbness PD PAST MEDICAL HISTORY - Past Medical History Cardiovascular: Hypertension Respiratory: None Neuro: CVA, TIA, Headaches Endocrine/Autoimmune: Type 2 diabetes HEENT: Chronic vision loss Psych: Depression Musculoskeletal: Fatigue Derm: Other - Past Surgical History Past Surgical History: No - Present Medications Home Medications: Ambulatory Orders Medication Instructions Recorded Confirmed Pioglitazone [Actos] 15 mg PO BIDWM tablet 12/04/18 11/03/22 Insulin Glargine [Lantus Solostar] 10 unit SUBQ BID 04/21/19 11/03/22 amLODIPine [Norvasc] 5 mg PO DAILY 04/21/19 11/03/22 - Allergies Allergies/Adverse Reactions: Allergies Allergy/AdvReac Type Severity Reaction Status Date / Time No Known Drug Allergies Allergy Verified 04/21/19 05:42 - Social History Does the pt smoke?: No Smoking Status: Never smoker Does the pt drink ETOH?: No Does the pt have substance abuse?: No - Immunizations Immunizations are current?: No - POLST Patient has POLST: Yes PD ED PE NORMAL - Vitals Vital signs reviewed: Yes - General General: Alert and oriented X 3, Well developed/nourished - HEENT HEENT: Pharynx benign. No: Moist mucous membranes - Neck Neck: Supple, no meningeal sign, No adenopathy - Cardiac Cardiac: RRR, No murmur - Respiratory Respiratory: No respiratory distress, Clear bilaterally - Abdomen Abdomen: Soft, Non tender, Non distended - Female Female : Other (bladder scan showing >500 ml) - Rectal Rectal: Deferred - Back Back: No CVA TTP - Derm Derm: Warm and dry, Other (The Werve medial arm shows an area of swelling redness and tenderness with a open sore and some purulent drainage. No fluctuance felt. The back shows to skin abscesses with induration and swelling but no fluctuance on the left scapular and infrascapular area. Upper one draining on own.) - Neuro Neuro: Alert and oriented X 3, Normal speech, Other (General weakness noted with needing help for up and standing. She is able to roll in the bed herself.) Results - Vitals Vitals: Vital Signs - 24 hr 11/03/22 11/03/22 11/03/22 03:23 03:30 04:00 Temperature 37.2 C Heart Rate 73 75 75 Respiratory 93 H 15 16 Rate Blood Pressure 125/77 125/77 125/77 O2 Saturation 95 95 11/03/22 11/03/22 04:30 05:00 Temperature 36.9 C Heart Rate 77 81 Respiratory 14 16 Rate Blood Pressure 151/66 H O2 Saturation 97 96 Oxygen O2 Source Room air - Labs Labs: Laboratory Tests 11/03/22 11/03/22 11/03/22 03:15 03:15 03:19 WBC 25.4 H RBC 4.93 Hgb 13.9 Hct 42.2 MCV 85.6 MCH 28.2 MCHC 32.9 RDW 13.8 Plt Count 305 MPV 11.2 H Neut # (Auto) Not Reportable Lymph # (Auto) Not Reportable Mcdonough # (Auto) Not Reportable Eos # (Auto) Not Reportable Baso # (Auto) Not Reportable Absolute Nucleated RBC Not Reportable Total Counted 100 Band Neuts % (Manual) 12 H Abnorm Lymph % (Manual) 0 Metamyelocytes % 1 H Nucleated RBC % Not Reportable Neutrophils # (Manual) 22.9 H Lymphocytes # (Manual) 1.0 L Monocytes # (Manual) 1.0 Eosinophils # (Manual) 0.3 Basophils # (Manual) 0.0 Differential Comment MANUAL DIFFERENTIAL WBC Morphology 1+ TOXIC GRANULATION Platelet Estimate NORMAL (130-450,000) RBC Morph Micro Appear NORMAL APPEARANCE Sodium 135 Potassium 3.7 Chloride 97 L Carbon Dioxide 26 Anion Gap 12.0 BUN 26 H Creatinine 1.0 Estimated GFR (MDRD) 53 L Glucose 315 H Lactic Acid Calcium 8.8 Total Bilirubin 0.8 AST 15 ALT 13 Alkaline Phosphatase 85 Total Protein 6.9 Albumin 2.8 L Globulin 4.1 Albumin/Globulin Ratio 0.7 L Urine Color Urine Clarity Urine pH Ur Specific [place] Urine Protein Urine Glucose (UA) Urine Ketones Urine Occult Blood Urine Nitrite Urine Bilirubin Urine Urobilinogen Ur Leukocyte Esterase Urine RBC Urine WBC Ur Squamous Epith Cells Urine Bacteria Urine Culture Comments Nasal Adenovirus (PCR) NOT DETECTED Nasal B. parapertussis DNA (PCR) NOT DETECTED Nasal Coronavir 229E PCR NOT DETECTED Nasal Coronavir HKU1 PCR NOT DETECTED Nasal Coronavir NL63 PCR NOT DETECTED Nasal Coronavir OC43 PCR NOT DETECTED Nasal Enterovir/Rhinovir PCR NOT DETECTED Nasal Influenza B PCR NOT DETECTED Nasal Influenza A PCR NOT DETECTED Nasal Parainfluen 1 PCR NOT DETECTED Nasal Parainfluen 2 PCR NOT DETECTED Nasal Parainfluen 3 PCR NOT DETECTED Nasal Parainfluen 4 PCR NOT DETECTED Nasal RSV (PCR) NOT DETECTED Nasal B.pertussis DNA PCR NOT DETECTED Nasal C.pneumoniae (PCR) NOT DETECTED Crispin Human Metapneumo PCR NOT DETECTED Nasal M.pneumoniae (PCR) NOT DETECTED Nasal SARS-CoV-2 (PCR) NOT DETECTED Serum Ketones SMALL H 11/03/22 11/03/22 04:23 04:44 WBC RBC Hgb Hct MCV MCH MCHC RDW Plt Count MPV Neut # (Auto) Lymph # (Auto) Mcdonough # (Auto) Eos # (Auto) Baso # (Auto) Absolute Nucleated RBC Total Counted Band Neuts % (Manual) Abnorm Lymph % (Manual) Metamyelocytes % Nucleated RBC % Neutrophils # (Manual) Lymphocytes # (Manual) Monocytes # (Manual) Eosinophils # (Manual) Basophils # (Manual) Differential Comment WBC Morphology Platelet Estimate RBC Morph Micro Appear Sodium Potassium Chloride Carbon Dioxide Anion Gap BUN Creatinine Estimated GFR (MDRD) Glucose Lactic Acid 1.7 Calcium Total Bilirubin AST ALT Alkaline Phosphatase Total Protein Albumin Globulin Albumin/Globulin Ratio Urine Color YELLOW Urine Clarity HAZY Urine pH 6.0 Ur Specific [place] 1.020 Urine Protein 30 H Urine Glucose (UA) >=1000 H Urine Ketones 15 H Urine Occult Blood TRACE-INTA Urine Nitrite NEGATIVE Urine Bilirubin NEGATIVE Urine Urobilinogen 0.2 (NORMAL) Ur Leukocyte Esterase NEGATIVE Urine RBC 6-10 H Urine WBC 4-5 Ur Squamous Epith Cells FEW Squamous Urine Bacteria Moderate H Urine Culture Comments NOT INDICATED Nasal Adenovirus (PCR) Nasal B. parapertussis DNA (PCR) Nasal Coronavir 229E PCR Nasal Coronavir HKU1 PCR Nasal Coronavir NL63 PCR Nasal Coronavir OC43 PCR Nasal Enterovir/Rhinovir PCR Nasal Influenza B PCR Nasal Influenza A PCR Nasal Parainfluen 1 PCR Nasal Parainfluen 2 PCR Nasal Parainfluen 3 PCR Nasal Parainfluen 4 PCR Nasal RSV (PCR) Nasal B.pertussis DNA PCR Nasal C.pneumoniae (PCR) Crispin Human Metapneumo PCR Nasal M.pneumoniae (PCR) Nasal SARS-CoV-2 (PCR) Serum Ketones PD Medical Decision Making - ED course Complexity details: considered differential, d/w patient, d/w family (son), d/w wardrobe image consultant (Dr. Allen, hospitalist. ) Drug Therapy Requiring Monitoring for Toxicity: The patient is given IV fluids to help with hydration. We held insulin initially and will see how her blood sugar is on recheck after IV fluids. We will see what her ketones and electrolytes are as well. She does have skin bacterial infections that look like abscesses. Will cover for both staph and strep with cefazolin as well as vancomycin. These were administered IV without any side effects. She was given ondansetron for nausea with improvement in symptom. ED course: The patient has had several days of malaise and myalgias and weakness associated with nausea and less appetite and intake. She has had vomiting now for a day. She has chills but has not taken her temperature per se. She does have source of infection of apparent skin abscesses with drainage at the left upper arm and the left back. I presume the initial infection at the arm just spread by contact to the areas in the back. Most likely these would be Staph aureus given the character and spread. She is afebrile at this point. Her vital signs are good. However she does have an elevated white count of 25,000 with a bandemia of 12. She has been ill with vomiting. She has an elevated blood sugar in the 300s and does have small ketones on blood. However her lactic acid level is only 1.7. It would be concern for developing sepsis. Her bladder scanner had 500 mils and a Gilliland catheter was placed. The urine itself however does not show obvious infection. Chest x-ray is clear without any pneumonia. Respiratory PCR panel is negative. I presume the main cause of her it symptoms and infection of the skin abscesses. Again they are draining on their own and I do not see a need for further incision and drainage. Departure - Departure Disposition: 66 [facility] DC/Xfer Clinical Impression: Nausea and vomiting, Diabetes, Skin abscess Leukocytosis Qualifiers: Leukocytosis type: bandemia Qualified Code(s): D72.825 - Bandemia Condition: Stable Record reviewed to determine appropriate education?: Yes
[2022-11-03 03:48] LABS: BASOPHILS % (AUTO) 0.6 %; HCT - HEMATOCRIT 42.2 % (37.0-47.0); HGB - HEMOGLOBIN 13.9 g/dL (12.0-16.0); LYMPHOCYTES % (AUTO) 2.9 %; MEAN CORPUSCULAR HEMOGLOBIN 28.2 pg (27.0-31.0); MEAN CORPUSCULAR HGB CONC 32.9 g/dL (32.0-36.0); MEAN CORPUSCULAR VOLUME 85.6 fL (81.0-99.0); MEAN PLATELET VOLUME 11.2 fL (7.9-10.8); NEUTROPHILS % (AUTO) 89.6 %; PLT - PLATELET COUNT 305 10^3/uL (130-450); RED BLOOD COUNT 4.93 10^6/uL (4.20-5.40); RED CELL DISTRIBUTION WIDTH 13.8 % (12.0-15.0); WHITE BLOOD COUNT 25.4 x10^3/uL (4.8-10.8)
[2022-11-03] MEDS ORDERED: VANCOMYCIN 1 GM VIAL ONE (03:48)
[2022-11-03 03:51] LABS: ABNORMAL LYMPHS % (MANUAL) 0 %
[2022-11-03] MEDS ORDERED: ceFAZolin 1 GM in SODIUM CHLORIDE 0.9% MINIBAG 100 ML IV STA ×2 (03:51→04:08)
[2022-11-03 03:57] LABS: ALBUMIN 2.8 g/dL (3.2-5.5); ALBUMIN/GLOBULIN RATIO 0.7 (1.0-2.2); ALKALINE PHOSPHATASE 85 IU/L (42-121); ALT ALANINE AMINOTRANSFERASE 13 IU/L (10-60); AST ASPARTATE AMINOTRANSFERASE 15 IU/L (10-42); BILIRUBIN,TOTAL 0.8 mg/dL (0.2-1.0); BUN - BLOOD UREA NITROGEN 26 mg/dL (6-20); CALCIUM 8.8 mg/dL (8.5-10.3); CARBON DIOXIDE - CO2 26 mmol/L (21-32); CHLORIDE 97 mmol/L (101-111); GFR - MDRD 53 (>89); GLUCOSE 315 mg/dL (70-100); POTASSIUM 3.7 mmol/L (3.5-5.0); SODIUM 135 mmol/L (135-145); TOTAL PROTEIN 6.9 g/dL (6.7-8.2)
[2022-11-03] MEDS ORDERED: ceFAZolin 1 GM VIAL ONE (04:00)
[2022-11-03 04:02] LABS: KETONES, SERUM (ACETEST) SMALL (NEGATIVE)
[2022-11-03 04:09] LABS: BAND NEUTROPHILS % (MANUAL) 12 %; DIFFERENTIAL COMMENT MANUAL DIFFERENTIAL; EOSINOPHILS # (MANUAL) 0.3 10^3/uL (0-0.7); LYMPHOCYTES % (MANUAL) 4 %; METAMYELOCYTES % (MANUAL) 1 %; NEUTROPHILS # (MANUAL) 22.9 10^3/uL (1.5-6.6); PLATELET ESTIMATE, MANUAL NORMAL (130-450,000) (NORMAL); RBC MORPHOLOGY (MULTIPLE) NORMAL APPEARANCE (NORMAL); WBC MORPHOLOGY (MULTIPLE) 1+ TOXIC GRANULATION (NORMAL)
[2022-11-03 04:53] LABS: B. PARAPERTUSSIS- RESP PCR PAN NOT DETECTED; B. PERTUSSIS- RESP PCR PANEL NOT DETECTED; C. PNEUMONIAE- RESP PCR PANEL NOT DETECTED; CORONAVIRUS 229E-RESP PCR NOT DETECTED; CORONAVIRUS HKU1-RESP PCR NOT DETECTED; CORONAVIRUS NL63-RESP PCR NOT DETECTED; CORONAVIRUS OC43-RESP PCR NOT DETECTED; HUMAN METAPNEUMOVIRUS NOT DETECTED; INFLUENZA A- RESP PCR PANEL NOT DETECTED; INFLUENZA B - RESP PCR PANEL NOT DETECTED; M. PNEUMONIAE- RESP PCR PANEL NOT DETECTED; PARAINFLUENZA VIRUS 1 NOT DETECTED; PARAINFLUENZA VIRUS 2 NOT DETECTED; PARAINFLUENZA VIRUS 3 NOT DETECTED; PARAINFLUENZA VIRUS 4 NOT DETECTED; RHINOVIRUS/ENTEROVIRUS NOT DETECTED; RSV- RESP PCR PANEL NOT DETECTED; SARS-CoV-2 -RESP PCR PANEL NOT DETECTED
[2022-11-03 04:53] LABS: BILIRUBIN,URINE NEGATIVE (NEGATIVE); GLUCOSE, URINE (UA) >=1000 mg/dL (NEGATIVE); KETONES,URINE (UA) 15 mg/dL (NEGATIVE); LEUKOCYTE ESTERASE, URINE NEGATIVE (NEGATIVE); NITRITE,URINE NEGATIVE (NEGATIVE); OCCULT BLOOD,URINE TRACE-INTA (NEGATIVE); PROTEIN,URINE 30 mg/dL (NEGATIVE); UROBILINOGEN,URINE 0.2 (NORMAL) E.U./dL (NORMAL)
[2022-11-03 04:59] LABS: BACTERIA,URINE Moderate /HPF (None Seen); CLARITY,URINE HAZY (CLEAR); SQUAMOUS EPITHELIAL CELL,UR FEW Squamous (<= Few)
[2022-11-03] MEDS ORDERED: ACETAMINOPHEN 325 MG TABLET PO PRN (05:44)
[2022-11-03] MEDS ORDERED: ONDANSETRON 4 MG/2 ML VIAL IVP PRN (05:44)
--- NOTE | 2022-11-03 06:38 | HISTORY & PHYSICAL EXAMINATION ---
History and Physical - History and Physical Chief complaint Generalized weakness nausea History of present illness This is 87-year-old female who presented to emergency room with complaint of generalized weakness with decreased appetite and nausea. She also complained of left upper extremity swelling and redness with purulent drainage since last few days. She denies any fever or chills. Patient is diabetic and she is on Lantus 15 units twice a day as per her. She does not check her blood glucose frequently. Patient mentioned that she had left arm injury previously well getting out of the bed. She has a foul-smelling discharge from her left arm wound. She denies any diarrhea or dysuria. She denies any chest pain or shortness of breath. She does not ambulate and uses wheelchair. She is complaining of lower back pain. As per the patient she has pain over her lower back for a long time but it is worse today. In the emergency room she also was found to have a boil over her back which also has some drainage. Patient received cefazolin and vancomycin in the emergency room. She also received IV fluid bolus in the emergency room. She is not running any fever or hypotension. Lactic acid is within normal limits. She has leukocytosis with white count around 25,000. Review of system 14 point review of system was done. It was negative except as per history of present illness Past medical history Hypertension, diabetes mellitus type 2, insulin-dependent, depression, fatigue, CVA Past surgical history none Home medications Amlodipine Lantus and pioglitazone Allergies Reviewed Social history No use of alcohol illicit drugs or tobacco products Family history No history of cancer Physical examination Vital signs Temperature 37.2 C Heart 68/min Blood pressure 174/68 Respiration 16 Oxygen saturation 95% on room air Head is atraumatic normocephalic Pupils are round and react to light and accommodation Neck no JVD CVS regular rate rhythm Respiration antibody equal Abdomen nontender nondistended Extremitiesleft arm cellulitis with erythema edema and purulent drainage from the medial mid arm No clubbing cyanosis or edema in the lower extremities Musculoskeletal no calf tenderness [employer] patient is alert oriented time place and person Psych normal mood and affect Labs White count 25,000 with a hemoglobin of 13.9 and platelets 305 Glucose 315 with lactic acid 1.7 with normal sodium and potassium as well as normal renal function in liver function Urine analysis did not show any signs of UTI Small serum ketones Assessment 1. Left arm cellulitis and abscess. Patient has spontaneous draining of the abscess 2. Skin abscess over the back. It is draining 3. Diabetes mellitus type 2, insulin-dependent with hyperglycemia 4. Hypertension 5. Sepsis Plan Admit patient on MedSurg floor Continue Zosyn and vancomycin Consider general surgery consult if further incision and drainage requirement As needed Tylenol Sliding-scale insulin with Accu-Cheks. Lantus 50 units twice a day as patient reported dose Check hemoglobin A1c Oral lisinopril for blood pressure control CODE STATUS Full code Total time taken for this was 70 minutes. This was telemedicine evaluation using bedside telemedicine audiovisual cart with the help of bedside nursing staff.
--- NOTE | 2022-11-03 07:45 | XRAY Report ---
PROCEDURE: Sacrum/Coccyx INDICATIONS: lower back pain / injury TECHNIQUE: 3 views of the sacrum and coccyx acquired. COMPARISON: None. FINDINGS: Bones: Generalized osteopenia. No definite sacrococcygeal fracture, although evaluation is mildly co mpromised by osteopenia. Degenerative changes are seen in the included lumbar spine. There is severe left hip osteoarthrosis and moderate right hip osteoarthrosis. The left proximal femur is excluded fr om the field of view AP images. Soft tissues: Visualized bowel gas pattern is normal. No suspicious soft tissue densities. [place] of the femoral head with osseous protuberance at the femoral head/neck junction, which can be se en in the setting of cam-type femoroacetabular impingement. Urinary bladder catheter is noted. IMPRESSION: No acute osseous abnormality. Generalized osteopenia. If symptoms persist or there is continued clini yannick concern, further evaluation with MRI or CT may be helpful. There is no significant discrepancy when compared with the preliminary overnight report. Reviewed by: Noah Gu MD on 11/03/2022 7:43 AM PST Approved by: Noah Gu MD on 11/03/2022 7:43 AM PST Station ID: [id number]
[2022-11-03] MEDS ORDERED: PIPERACILLIN/TAZOBACTAM 3.375 GM in SODIUM CHLORIDE 0.9% MINIBAG 100 ML IV ONE (08:00)
[2022-11-03] MEDS ORDERED: ENOXAPARIN 40 MG/0.4 ML SYRINGE SUBQ SCH (09:00)
[2022-11-03] MEDS: INSULIN GLARGINE-YFGN 300 UNIT/3 ML PEN SUBQ SCH ×2 (09:14→21:25)
[2022-11-03] MEDS: INSULIN LISPRO 300 UNIT/3 ML PEN SUBQ SCH ×4 (09:15→21:24)
[2022-11-03 09:19] LABS: ESTIMATED AVERAGE GLUCOSE 278 mg/dL (70-100); HEMOGLOBIN A1c% 11.3 % (4.27-6.07)
[2022-11-03] MEDS: SODIUM CHLORIDE FLUSH 0.9% 10 ML SYRINGE IVP SCH ×2 (09:21→17:34)
--- NOTE | 2022-11-03 10:36 | PHARMACY PROGRESS NOTE ---
- Best Possible Medication History Admit Date and Time: 11/03/22 0544 Processed by: Nursing Medication History completed: Yes As the person ultimately responsible for medication therapy, providers are able to order a medication from an existing home medication list in [facility] via the "Reconcile Routine" prior to Confirmation of that medication by senior safety support manager. Such practice is discouraged except when the physician, in their clinical judgment, deems that a medical need exists for a medication without regard to previous use.
--- NOTE | 2022-11-03 11:38 | XRAY Report ---
PROCEDURE: Chest 1 View X-Ray INDICATIONS: Sepsis TECHNIQUE: One view of the chest was acquired. COMPARISON: None. FINDINGS: Surgical changes and devices: None. Lungs and pleura: Mild pulmonary vascular congestion noted. Mediastinum: Mediastinal contours appear normal. Heart size is enlarged. Bones and chest wall: No suspicious bony lesions. Overlying soft tissues appear unremarkable. IMPRESSION: Pulmonary vascular congestion. Reviewed by: Daniel Tavares on 11/03/2022 10:37 AM [facility] Approved by: Daniel Tavares on 11/03/2022 10:37 AM [facility] Station ID: [id number]
[2022-11-03 12:44] LABS: ABG HCO3 30.4 mmol/L (22.0-26.0); ABG PO2 80 mmHg (80-100); ABG TCO2 33.1 MMOL/L (21.0-29.0)
[2022-11-03 12:45] LABS: ABG OXYGEN SATURATION 93 % (94-98); ALLEN TEST POSITIVE
[2022-11-03 12:47] LABS: ABG PH 7.16 (7.35-7.45)
[2022-11-03 12:48] LABS: ABG PCO2 88 mmHg (34-45)
[2022-11-03] MEDS ORDERED: ALBUTEROL NEB 2.5 MG/3 ML INH PRN (12:52)
[2022-11-03] MEDS ORDERED: SODIUM CHLORIDE FLUSH 0.9% 10 ML SYRINGE IVP PRN (12:52)
--- NOTE | 2022-11-03 12:59 | XRAY Report ---
PROCEDURE: Chest 1 View X-Ray INDICATIONS: sudden hypoxia TECHNIQUE: One view of the chest was acquired. COMPARISON: None. FINDINGS: Surgical changes and devices: None. Lungs and pleura: No pleural effusions or pneumothorax. There is pulmonary vascular congestion. Mediastinum: Mediastinal contours appear normal. Heart size is normal. The thoracic aorta is tort uous. Bones and chest wall: No suspicious bony lesions. Overlying soft tissues appear unremarkable. IMPRESSION: Pulmonary vascular congestion consistent with mild pulmonary edema. Reviewed by: Daniel Tavares on 11/03/2022 11:58 AM [facility] Approved by: Daniel Tavares on 11/03/2022 11:[address] [facility] Station ID: [id number]
[2022-11-03 15:28] LABS: ABG BASE EXCESS -6.6 mmol/L (-2.0-3.0); ABG HCO3 24.5 mmol/L (22.0-26.0); ABG OXYGEN SATURATION 89 % (94-98); ABG PO2 65 mmHg (80-100); ABG TCO2 26.8 MMOL/L (21.0-29.0); ALLEN TEST POSITIVE
[2022-11-03 15:30] LABS: ABG PCO2 76 mmHg (34-45); ABG PH 7.12 (7.35-7.45)
[2022-11-03] MEDS ORDERED: FUROSEMIDE 40 MG/4 ML VIAL IVP STA (15:43)
[2022-11-03] MEDS: NYSTATIN POWDER 15 GM TOP SCH ×2 (16:00→21:20)
--- NOTE | 2022-11-03 16:00 | PROVIDER PROGRESS NOTE ---
Progress Note November 03, 2022 3:46 PM I was called to see this patient immediately at approximately 12:30 PM. I had seen her briefly this morning and in reading the history and physical she was a patient with diabetes, sepsis, and spontaneously draining abscesses in the left arm, and the back. She had been given Ancef, vancomycin, and then switched to Zosyn instead of Ancef on admission. She received Zosyn at 8 in the morning, and vancomycin at 3:30 in the morning. Her next dose of Zosyn is at 1 PM. She was speaking to me this morning. Sleepy but understood she was in the hospital. As the morning progressed nursing reported she became sleepier and then obtunded. This is when I was called to the room. Sitting upright, Head was hanging down with chin sitting on her chest. She did lift up her head and look at me when I called her name but face was reddened, ruborous, and she was 77% saturated on 3 L nasal cannula. She was nonverbal. Slow respiration with occasional guppy breath. She immediately closed her eyes and let her head hanging down again. From that point on only sternal rub would wake her up. The only limb she seems to be moving right now is her left arm. I transferred her to ICU placed her on BiPAP. And chest x-ray from 1030 showed pulmonary vascular congestion. Repeat chest x-ray around 1 PM showed the same pulmonary vascular congestion. Troponin was ordered stat and it was 12.5. Lactic acid was 1.7 this morning. Blood gas before BiPAP and on 12 L oxy mask had a pH of 7.16, PCO2 88, PO2 80 and bicarb 30. Base excess -1. After stabilizing O2 sats so that she was between 88 and 92% on BiPAP, I repeated blood gases. pH was 7.12. PCO2 76. PO2 65. Base excess -6.6. She is not waking up. Face is slack, but there is no facial droop. She does respond to sternal rub and that she grimaces, and facial symmetry is present. She is not spontaneously moving limbs. Lungs have poor poor air movement. Rhonchi. Diffusely. She has a bump on the back of her neck as she goes into her C-spine that is a flat reddened appearance of a sebaceous cyst. She has a left arm abscess up near the biceps. Skin is re ddened and hot around this area. Tachycardic regular rate and rhythm. Maintaining blood pressure 168/48. Urine output is nil. She is put out 60 cc since midnight to 10 now. She is gotten approximately 2400 cc in. Assessment/plan This is a lady who was admitted with sepsis, but an intact alertness, speech pattern. She does have a history of previous stroke. She does not have a history of COPD nor does she have a history of congestive heart failure. An echocardiogram done in 2019 with a previous stroke shows her to have an ejection fraction of 65 to 70%. She has elevation of the left ventricular outflow track gradient with evidence of obstruction in the mid cavity associated with hyperdynamic function. Atria was normal. Bubble study was negative. No significant valvular dysfunction and no evidence of pulmonary hypertension. Because she does not have any severe cardiovascular disease history, and this has been a sudden event, I postulate that she may have had another stroke. She is also very sedentary, and spends most of her time in a wheelchair, and could have had a pulmonary embolus. I also wondered about any sedating drugs that would have caused her to become apneic and she really has not gotten anything overnight that would have done this. I also wonder if sepsis is worsening but pressure is stable, and she is on adequate antibiotic support. However I am unable to get her to the CT scanner for a head CT or chest CT angiogram because she is unstable from a respiratory perspective. I read the palliative care report from [facility] in 2019. The patient is a nondenominational woman who is a Jehovah. She does not believe in blood transfusions and she did not want life support. She did not want to be intubated or receive CPR. I spoke to her son Uvaldo who is at the bedside. He confirmed this thought process. He said mom would never want life support. I did try and get a hold of son Alpesh who is the [facility] at [phone]. At this time I will continue to support her in the ICU with BiPAP, give her Lasix 40 mg IV push for the pulmonary congestion we are seeing, continue IV antibiotics. I will also start empiric lovenox for PE. Control her diabetes. But no CPR and no intubation. Son Uvaldo says that is what mom wants.
[2022-11-03] MEDS: CHLORHEXIDINE GLUCONATE 15 ML UDC PO SCH ×2 (16:01→21:29)
[2022-11-03] MEDS: PANTOPRAZOLE 40 MG VIAL IVP SCH (16:01)
[2022-11-03] MEDS: methylPREDNISolone SUCCINATE 40 MG/ML VIAL IVP SCH ×3 (16:02→23:54)
[2022-11-03] MEDS: PIPERACILLIN/TAZOBACTAM 3.375 GM in SODIUM CHLORIDE 0.9% MINIBAG 100 ML IV SCH (16:02)
[2022-11-03] MEDS ORDERED: SODIUM CHLORIDE FLUSH 0.9% 10 ML SYRINGE IVP SCH (17:00)
[2022-11-03] MEDS ORDERED: CALAMINE/ZINC OXIDE 177 ML BOTTLE TOP PRN (19:44)
[2022-11-03] MEDS ORDERED: MIN OIL/DIMETHICON/COCONUT OIL 92 GM TUBE TOP PRN (19:44)
[2022-11-03] MEDS ORDERED: ENOXAPARIN 80 MG/0.8 ML SYRINGE SUBQ SCH (21:00)
[2022-11-03] MEDS ORDERED: NYSTATIN CREAM 15 GM TUBE TOP SCH (21:00)
[2022-11-03] MEDS ORDERED: VANCOMYCIN INJ 1 GM, VANCOMYCIN INJ 500 MG in SODIUM CHLORIDE 0.9% 500 ML IV SCH (22:00)
[2022-11-04] MEDS: PIPERACILLIN/TAZOBACTAM 3.375 GM in SODIUM CHLORIDE 0.9% MINIBAG 100 ML IV SCH (01:51)
[2022-11-04] MEDS: SODIUM CHLORIDE FLUSH 0.9% 10 ML SYRINGE IVP SCH (01:52)
[2022-11-04 05:41] LABS: CALCIUM 8.7 mg/dL (8.5-10.3); CREATININE 1.8 mg/dL (0.4-1.0); POTASSIUM 5.8 mmol/L (3.5-5.0)
[2022-11-04] MEDS: SODIUM CHLORIDE FLUSH 0.9% 10 ML SYRINGE IVP PRN ×3 (06:01→06:40)
[2022-11-04] MEDS: methylPREDNISolone SUCCINATE 40 MG/ML VIAL IVP SCH (06:01)
[2022-11-04 06:27] LABS: HCT - HEMATOCRIT 49.4 % (37.0-47.0); HGB - HEMOGLOBIN 14.6 g/dL (12.0-16.0); LYMPHOCYTES % (AUTO) 2.8 %; MEAN CORPUSCULAR HEMOGLOBIN 27.9 pg (27.0-31.0); MEAN CORPUSCULAR HGB CONC 29.6 g/dL (32.0-36.0); MEAN CORPUSCULAR VOLUME 94.3 fL (81.0-99.0); MEAN PLATELET VOLUME 10.9 fL (7.9-10.8); MONOCYTES % (AUTO) 3.6 %; NEUTROPHILS % (AUTO) 92.7 %; PLT - PLATELET COUNT 385 10^3/uL (130-450); RED BLOOD COUNT 5.24 10^6/uL (4.20-5.40); RED CELL DISTRIBUTION WIDTH 14.1 % (12.0-15.0); WHITE BLOOD COUNT 33.2 x10^3/uL (4.8-10.8)
[2022-11-04 06:32] LABS: ABNORMAL LYMPHS % (MANUAL) 0 %
[2022-11-04] MEDS: PANTOPRAZOLE 40 MG VIAL IVP SCH (06:39)
[2022-11-04 06:42] LABS: BAND NEUTROPHILS % (MANUAL) 6 %; DIFFERENTIAL COMMENT MANUAL DIFFERENTIAL; LYMPHOCYTES % (MANUAL) 3 %; METAMYELOCYTES % (MANUAL) 2 %; MONOCYTES # (MANUAL) 1.7 10^3/uL (0.0-1.0); NEUTROPHILS # (MANUAL) 29.9 10^3/uL (1.5-6.6); PLATELET ESTIMATE, MANUAL NORMAL (130-450,000) (NORMAL); PLATELET MORPHOLOGY NORMAL APPEARANCE (NORMAL); RBC MORPHOLOGY (MULTIPLE) NORMAL APPEARANCE (NORMAL); WBC MORPHOLOGY (MULTIPLE) NORMAL APPEARANCE (NORMAL)
[2022-11-04 07:36] VITALS: BP 76/38
--- NOTE | 2022-11-04 08:21 | Discharge Plan ---
Discharge Plan Problem Reviewed?: Yes Disposition: 20 No Smoking: If you smoke, Please STOP! Call for help.
--- NOTE | 2022-11-04 18:56 | DISCHARGE SUMMARY ---
Discharge Summary Admit Date: 11/03/22 Discharge Date: 11/04/22 Discharging Provider: Roslyn Marcial MD Primary Care Provider: Joanie Vivar MD Code Status: Do Not Attempt Resuscitation Discharge Disposition: 20 - DIAGNOSES Discharge Diagnoses with Status of Each Condition: 1. Acute respiratory failure with hypoxia 2. Probable stroke 3. History of stroke 4. Sepsis from soft tissue infection, left arm cellulitis and abscess 5. Sebaceous cyst 7. Type 2 diabetes mellitus 8. Hypertension 9. Poor hygiene - HPI History of Present Illness: This is 87-year-old female who presented to emergency room with complaint of generalized weakness with decreased appetite and nausea. She also complained of left upper extremity swelling and redness with purulent drainage since last few days. She denies any fever or chills. Patient is diabetic and she is on Lantus 15 units twice a day as per her. She does not check her blood glucose frequently. Patient mentioned that she had left arm injury previously well getting out of the bed. She has a foul-smelling discharge from her left arm wound. She denies any diarrhea or dysuria. She denies any chest pain or shortness of breath. She does not ambulate and uses wheelchair. She is complaining of lower back pain. As per the patient she has pain over her lower back for a long time but it is worse today. In the emergency room she also was found to have a boil over her back which also has some drainage. Patient received cefazolin and vancomycin in the emergency room. She also received IV fluid bolus in the emergency room. She is not running any fever or hypotension. Lactic acid is within normal limits. She has leukocytosis with white count around 25,000. Review of system 14 point review of system was done. It was negative except as per history of present illness Past medical history Hypertension, diabetes mellitus type 2, insulin-dependent, depression, fatigue, CVA - HOSPITAL COURSE Hospital Course: The patient was admitted for sepsis, started on empiric antibiotic therapy and cultures were done. She was transferred to [facility]. Overnight she was stable. On the morning after admission she was awake, alert, able to converse with nursing. By later that afternoon she had a sudden onset of obtundation. Her face was red, she was guppy breathing, and she was hypoxic. She was only spontaneously moving her left arm. There is no facial asymmetry and pupils were reactive. But she was not responding so I put her in the ICU because of apnea. Differential diagnosis included stroke, PE. She was in a BiPAP mask and we did not feel she was stable enough to go to the CT scanner. I spoke to her son Uvaldo, advised him of how seriously ill she was, and that the only other step I can take was to intubate her to support her from a respiratory status. He said that mom did not want that. She was a DO NOT RESUSCITATE. She had already had 2 previous strokes and had recovered but was deteriorating over the last year to 2. We noted on exam that she had very poor hygiene and smelled very yeasty. Multiple subcutaneous sebaceous cyst. Some of them were draining and infected. The patient was supported with BiPAP, IV antibiotics, IV fluids. Her diabetes was controlled with insulin. In spite of that, she suddenly stopped breathing again on the morning of November 04. This is even on a facemask. She eventually became bradycardic, agonal cardiac rhythm. And . - ALLERGIES Allergies/Adverse Reactions: Allergies Allergy/AdvReac Type Severity Reaction Status Date / Time No Known Drug Allergies Allergy Verified 04/21/19 05:42 - MEDICATIONS Home Medications: Ambulatory Orders Medication Instructions Recorded Confirmed Pioglitazone [Actos] 15 mg PO BIDWM tablet 12/04/18 11/03/22 Insulin Glargine [Lantus Solostar] 10 unit SUBQ BID 04/21/19 11/03/22 amLODIPine [Norvasc] 5 mg PO DAILY 04/21/19 11/03/22 - LABS Result Diagrams: 11/04/22 06:22 11/04/22 04:28
[2022-11-04] MEDS ORDERED: ENOXAPARIN 80 MG/0.8 ML SYRINGE SUBQ SCH (21:00)
== END 2022-11-04 07:33 | disposition expired | DRG 871 ==
LOC: EDUNIT# → ED 03:08 → MS2 05:44 → ICU 13:16
PROVIDERS: ADMIT Internal Medicine; ATTEND Specialist
DX: L02.414 Cutaneous abscess of left upper limb (principal); E11.9 Type 2 diabetes mellitus without complications; A41.9 Sepsis, unspecified organism; I63.9 Cerebral infarction, unspecified; J96.01 Acute respiratory failure with hypoxia; D72.825 Bandemia; R53.1 Weakness; L03.114 Cellulitis of left upper limb; L02.212 Cutaneous abscess of back [any part, except buttock and flank]; E11.65 Type 2 diabetes mellitus with hyperglycemia; Z79.4 Long term (current) use of insulin; Z20.822 Contact with and (suspected) exposure to COVID-19; I10 Essential (primary) hypertension; L72.3 Sebaceous cyst; Z86.73 Personal history of transient ischemic attack (TIA), and cerebral infarction without residual deficits; Z99.3 Dependence on wheelchair; F32.A Depression, unspecified; R53.83 Other fatigue; Z66 Do not resuscitate; M53.3 Sacrococcygeal disorders, not elsewhere classified; M54.50 Low back pain, unspecified; R63.0 Anorexia; R11.2 Nausea with vomiting, unspecified; Z68.36 Body mass index [BMI] 36.0-36.9, adult
CPT/HCPCS: 36415; 36600; 51702; 51798; 71045; 72220; 80048; 80053; 81001; 82009; 82803; 83036; 83605; 84484; 85025; 87040; 87070; 87150; 87205; 87633; 94660; 96365; 96366; 96368; 96375; 99284; 99285; A6250; A9270; J1650; J1815; J3370; 87086